=== PATIENT | female | born 1935 | race Caucasian/White ===

== ENCOUNTER 2024-01-16 14:52 | Observation (INO) | payer OTHER, SELFPAY ==
[2024-01-16] VITALS (10 sets, daily range): BP systolic 133–197; BP diastolic 44–117; BMI 23.8
--- NOTE | 2024-01-16 10:27 | ED.GENMED ---
History of Present Illness
General
Chief Complaint: Abdominal Symptoms
Source: patient and ambulance crew
Exam Limitations: none
Time Seen by Provider: 01/16/24 10:26
Nursing documentation reviewed up to this point in time: agreed with
History of Present Illness
History of Present Illness:
88-year-old female with history of HTN, non-Hodgkin's lymphoma, anxiety, colon resection 06/2022 presents from home where she lives alone. She lost her 1 month ago. She states she has been feeling lousy all week with dizziness, nausea,
diarrhea past 2 days, and started with shortness of breath this morning. She denies chest pain or abdominal pain. She denies fever or chills. No recent antibiotic use.
Tearful, admits to feeling panicky and anxious 'I've been this way for 6 years (states her was in a penitentiary a very ill for the past 6 years).' 'My doctor has me on too many medications' She has not taken her anxiety/depression meds past
few days due to 'I don't like the way they make me feel.'
Past History
Past History
ED Past Medical History: CAD, CHF, HTN, Hypothyroidism, Psychiatric (Anxiety ) and Other (Previous non-Hodgkin's lymphoma, Chronic Bronchitis, Anemia, )
ED Past Surgical History: Bowel resection (Colon resection) and Other (Left thumb amputation. )
Social History
Tobacco: Non-smoker
Alcohol: Occasional
Drug: None
Personal:
Living: with family
Employment: Other
Family History
Family History: Negative Diabetes
Review of Systems
Review of Systems
Allergies reviewed?: Yes
All Other Systems: ROS reviewed and negative except as documented in HPI and ROS
Constitutional: Denies fever
Respiratory: Denies cough or trouble breathing
Cardiac: Denies chest pain, diaphoresis, palpitations or syncope
ABD/GI: Reports nausea, diarrhea and anorexia; Denies abdominal pain, vomiting, bloody stools or black stools
: Denies dysuria, frequency, difficulty voiding or urgency
Phy Exam
Physical Exam
Physical Exam:
GENERAL: No acute distress. A&Ox3.
CONSTITUTIONAL: Afebrile.
EYES: PERRL, conjunctivae normal
Neck: Supple
ENMT: moist mucus membranes, Pharynx nl
RESPIRATORY: Regular respirations, nonlabored, lungs clear.
CARDIOVASCULAR: Regular rate and rhythm, no murmurs, no rubs.
GI: Soft, nontender, normal BS
MUSCULOSKELETAL: Moves with ease. Well perfused.
SKIN: Warm, dry, pink
PSYCH: Extremely anxious, tearful, tremulous. Well kept, interactive
NEUROLOGIC: Awake, alert and oriented. No focal neurological deficits
Course
Orders/Labs/Results
Orders:
Orders
01/16/24 Lunch
Cholesterol Lowering
At Your Request: Limited Participation
Cholesterol Lowering: Sodium, 2 Gram
01/16/24 10:27
Electrocardiogram (*1) Stat
Reason for Study: Other
Other Reason for Exam: chest pain
EKG- Treatment ONCE
CR Chest - 2 Views Urgent
Comment:
Reason For Exam: SOB
01/16/24 10:46
Alcohol Urgent
Complete Blood Count/With Diff Urgent
Comprehensive Metabolic Panel Urgent
NT-proBNP Urgent
Troponin I Urgent
01/16/24 10:49
Lorazepam [Ativan] 0.5 mg IV NOW STA
Ondansetron Injectable [Zofran] 4 mg IV NOW STA
01/16/24 11:56
Add On- LAB Urgent
Tests Added?: Alcohol level
01/16/24 11:58
Electrocardiogram (*1) Urgent
Reason for Study: Other
Other Reason for Exam: Too much artifact on initial one. Weak, dizzy
EKG- Treatment ONCE
01/16/24 12:11
Troponin I Urgent
01/16/24 12:15
Furosemide [Lasix] 40 mg IV NOW STA
01/16/24 14:26
Admit/Transfer Patient As Directed
Co-Sign Provider:
Level of Care: Observation services
Assign to:: Telemetry
Physician / Group: matilde/hospitalist
Diagnosis: AECHF, aortic stenosis
Reason for Telemetry: Acute Heart Failure
Date to Stop Telemetry: 01/19/24
Time to Stop Telemetry: 11:00
Reason for Hospitalization: AEHFpEF, aortic stenosis
01/16/24 14:30
Code Status As Directed
Resuscitation Status: Full Code
01/16/24 16:10
Acetaminophen [Tylenol] 650 mg PO Q4HPRN PRN
Furosemide [Lasix] 20 mg IV BID AT 0800,1600
Lorazepam [Ativan] 0.5 mg PO [id number] PRN
Trazodone [Desyrel] 25 mg PO HSPRN PRN
01/16/24 16:10
CARDIOLOGY CONSULT Routine
Consulting Provider: Shira Ramos
Was physician already notified: Yes
Reason for consult: AEHFpEF
HF DIETARY CONSULT Routine
HF EDUCATOR CONSULT Routine
Comment:
Activity As Directed
Activity Level: As Tolerated
Intake/ Output As Directed
Frequency: Per unit guidelines
Patient Education As Directed
Type: CHF folder
Comment: give on admission. Document in Interdisciplinary Education record
Sleep Apnea Assessment by RN As Directed
Comment:
Physician Instructions:
Vital Signs As Directed
Frequency: Other
Additional Instructions:: Q12 or per unit guidelines if more frequent.
Weight As Directed
Frequency: Daily
Type of Scale: Standing Scale
Comment: Daily morning weight. If unable to stand, use balanced bed scale.
Weight As Directed
Frequency: Once
Type of Scale: Standing Scale
Comment: Upon Admission. If unable to stand, use balanced bed scale.
Pulse Ox/cont/shift [RESP] Routine
Quantity: 1
Special Instructions: Daily pulse oximetry at rest. If greater than 92% at rest also obtain pulse oximetry
while ambulating as tolerated.
DX Deep Vein Thrombosis Video Routine
01/16/24 17:27
Basic Metabolic Panel Routine
Troponin I Q6H
Comment: at admission & every 6 hours x 2 (3 total), ECG to be done with each level
01/16/24 18:00
Atorvastatin [Lipitor] 10 mg PO QPM
Enoxaparin Sodium [Lovenox] 40 mg SC QPM
Metoprolol Xl [Toprol Xl] 50 mg PO QPM
01/16/24 22:00
Gabapentin [Neurontin] 300 mg PO HS
01/16/24 23:26
Troponin I Q6H
Comment: at admission & every 6 hours x 2 (3 total), ECG to be done with each level
01/17/24 05:39
Cardiovascular Evaluation IN AM
Complete Blood Count/No Diff IN AM
Magnesium IN AM
TSH Reflex To Free T4 IN AM
01/17/24 06:00
Levothyroxine [Synthroid] 50 mcg PO DAILY@0600
01/17/24 08:00
Cholecalciferol (Vitamin D3) [VITAMIN D3 (cholecalciferol)] 25 mcg PO DAILY
Sertraline HCl [Zoloft] 50 mg PO DAILY
Tolterodine Extended Release [Detrol LA] 4 mg PO DAILY
01/19/24 11:00
DC Protocol for Telemetry ONCE
Abnormal Lab Results
01/16/24
10:46
MCH 32.6 H pg
(27.0-31.0)
Calcium 10.5 H mg/dl
(8.4-10.2)
01/16/24 10:46
01/16/24 10:46
Vital Signs
Initial and Last Documented VS:
Initial Vital Signs
Temp Pulse Resp BP Pulse Ox
98.1 F 54 16 189/94 99
01/16/24 10:26 01/16/24 10:26 01/16/24 10:26 01/16/24 10:26 01/16/24 10:26
Last Documented Vital Signs
Temp Pulse Resp BP Pulse Ox
97.6 F 54 18 147/88 95
01/17/24 19:28 01/17/24 19:28 01/17/24 19:28 01/17/24 19:28 01/17/24 19:28
MDM/Problems Addressed
MDM/Problems Addressed:
88-year-old female with history of HTN, non-Hodgkin's lymphoma, anxiety, colon resection 06/2022 presents from home where she lives alone. She lost her 1 month ago. She states she has been feeling lousy all week with dizziness, nausea,
diarrhea past 2 days, and started with shortness of breath this morning. She denies chest pain or abdominal pain. She denies fever or chills. No recent antibiotic use.
Tearful, admits to feeling panicky and anxious 'I've been this way for 6 years (states her was in a penitentiary a very ill for the past 6 years).' 'My doctor has me on too many medications' She has not taken her anxiety/depression meds past
few days due to 'I don't like the way they make me feel.'
Received a call from a nurse practitioner who is familiar with the patient who states patient has a history of abusing alcohol and we should be on the alert for alcohol withdrawal
Unable to question pt about alcohol intake as a friend is in room with her.
12:00 PM:
EKG: NSR
CBC normal
CMP normal
Troponin within [place] [address]
Chest x-ray: No acute cardiopulmonary process.
Alcohol level:
Case discussed with Dr. Pizano.
Plan: Admit: CHF
elevated BNP, although radiology read NAD on chest x-ray, concern for CHF
Hospitalist notified of admission.
*Critical Care Note
Total Time (30-74mins, 75-104mins- exclusive of procedures): Not Applicable
ED Attending Note
-
Portions of this chart may have been created with voice recognition software.� Occasional wrong word or��sound alike� substitutions may have occurred due to the inherent limitations of voice recognition software.
Discharge Plan
Departure
Patient Disposition: Admit
Date of Disposition: 01/16/24
Time of Disposition: 12:15
Admit to: Telemetry
Presentation/result/management discussed w/ accepting MD/DO: Hospitalist
Condition: Fair
Discharge Problem:
CHF (congestive heart failure), Anxiety
Interventions
Interventions:
*Risk Screen - Suicide Last Done: 01/16/24 16:04
*General Assessment Last Done: 01/16/24 10:41
*Neglect/Abuse Screening Last Done: 01/16/24 10:41
ED- Fall Risk Assessment Last Done: 01/16/24 13:47
*ED COVID-19 Vaccine History Last Done: 01/16/24 10:41
*Nursing Disposition Last Done: 01/16/24 16:04
ED- Neurological Assessment Last Done: 01/16/24 10:35
ED- Cardiac Assessment Last Done: 01/16/24 10:35
EM-Dargfx-Ffhoeoorow Assessment Last Done: 01/16/24 10:35
ED Swallowing Screen Last Done: 01/16/24 10:50
Discharge Date and Time
Discharge Date/Time: 01/16/24 16:05
[2024-01-16] MEDS: ZOFRAN 4 MG IV (10:55)
[2024-01-16] MEDS: ATIVAN 0.5 MG IV (10:55)
[2024-01-16 10:57] LABS: % Basophils 0.5 % (0-2); % Eosinophils 0.4 % (0-6); % Immature Granulocytes 0.3 % (0-0.5); % Lymphocytes 22.7 % (20.5-51.1); % Monocytes 5.8 % (1.7-9.3); % Neutrophils 70.3 % (42.2-75.2); Absolute Lymphocytes 1.7 10^3/uL (1.2-3.4); Absolute Monocytes 0.4 10^3/uL (0.1-0.6); Absolute Neutrophils 5.4 10^3/uL (1.4-6.5); Hematocrit 38.7 % (37.0-47.0); Mean Corp Hgb Conc. 36.2 g/dL (33.0-37.0); Mean Corpuscular Hgb 32.6 pg (27.0-31.0); Mean Platelet Volume 10.3 fL (7.4-10.4); Nucleated Red Blood Cells % 0 %; Platelet Count 316 10^3/uL (130-400); Red Cell Dist. Width 13.9 % (11.5-14.5); White Blood Cell Count 7.7 10^3/uL (4.8-10.8)
[2024-01-16 11:07] LABS: ALT (SGPT) 18 U/L (0-35); AST (SGOT) 29 U/L (14-36); Albumin 4.9 g/dl (3.5-5.0); Alkaline Phosphatase 87 U/L (38-126); Blood Urea Nitrogen 11 mg/dl (7-17); Calcium 10.5 mg/dl (8.4-10.2); Carbon Dioxide 25 mmol/L (22-30); Chloride 103 mmol/L (98-107); Glucose 94 mg/dl (70-99); Potassium 4.4 mmol/L (3.5-5.1); Sodium 139 mmol/L (135-145); Total Bilirubin 1.2 mg/dl (0.2-1.3); Total Protein 7.5 g/dl (6.3-8.2); eGFR > 60.00
[2024-01-16 11:19] LABS: NT-proBNP 10300 pg/ml; Troponin I 0.017 ng/ml
[2024-01-16 12:15] LABS: Alcohol None Detected
[2024-01-16] MEDS: LASIX 40 MG IV (12:19)
[2024-01-16 12:48] LABS: Troponin I 0.014 ng/ml
--- NOTE | 2024-01-16 13:53 | HPS.HSE ---
Family Physician
-
Family Physician: Khoa Rajan
Chief Complaint
-
SOB
History of Present Illness
The patient is an 88-year-old female with PMH significant for HTN, non-Hodgkin's lymphoma, anxiety, colon resection 06/2022 for colon mass, presents from home (lives alone-recently lost her 1 mo ago and prior to that he was ill for 6 years),
and has been having symptoms of dizziness, nausea, diarrhea for 2 days, after eating at [employer] and having 2 gin and tonics, however started to have SOB this morning. She typically does not drink alcohol frequently per her report. She had 2 loose
BM yesterday, none today. No fevers, no chills, no CP, no SOB, no palpitations, no n/v/d today, no dysuria nor urinary symptoms. She is diuresing well in ED after Lasix IV given. She knows about moderate , and says she would not want surgery if it
came to that.
[place] [address], Trop 0.014, Calcium 10.5
ED txt: Ativan 0.5 mg IV once, Zofran 4 mg IV, Lasix 40 mg IV once
Medical History
Past Medical History
Past Medical History: Reports Other
Additional Past Medical History:
Colon Mass / Cancer
Hypertension
Hypothyroidism
Non-Hodgkin's Lymphoma (25 years ago)
Aortic Stenosis
Iron deficiency anemia
Hemorrhoids / Chronic Constipation
Anxiety / Depression
Hyperlipidemia
Past Surgical History: Reports Other
Additional Past Surgical History:
Right Hemicolectomy (06/2022)
Patient denies any prior surgeries.
Social History
Tobacco: Former Smoker (Quit 50 years ago.)
Alcohol: Occasional
Drug: None
Living: Alone
Family History
Family History: Not pertinent
Allergies / Home Medications
Allergies reflects when Allergies were last updated in [employer].
Home Medications with original date entered in [employer]
Allergy/Medication List:
Allergies
Allergy/AdvReac Type Severity Reaction Status Date / Time
No Known Allergies Allergy Verified 01/16/24 10:31
Home Medications
levothyroxine 50 mcg tablet 50 mcg PO DAILY Thyroid 10/25/17
atorvastatin 10 mg tablet 10 mg PO QPM High cholesterol 04/07/22
cholecalciferol (vitamin D3) 25 mcg (1,000 unit) tablet 25 mcg PO DAILY Supplement 04/07/22
metoprolol succinate 50 mg tablet,extended release 24 hr 50 mg PO QPM Blood pressure 04/07/22
acetaminophen 325 mg tablet (Tylenol) 650 mg PO Q4HPRN PRN mild pain 01/16/24
docusate sodium 100 mg capsule (Colace) 100 mg PO DAILY 01/16/24
gabapentin 300 mg capsule 300 mg PO HS 01/16/24
sertraline 50 mg tablet 50 mg PO DAILY 01/16/24
solifenacin 10 mg tablet (Vesicare) 10 mg PO DAILY 01/16/24
trazodone 50 mg tablet 25 mg PO HSPRN PRN sleep 01/16/24
vitamin E 268 mg (400 unit) capsule 268 mg PO DAILY 01/16/24
Review of Systems
-
A 12 point ROS was completed and negative except as noted: Yes
Physical Exam
Vital Signs
Vital Signs
Temp Pulse Resp BP Pulse Ox
98.1 F 66 27 170/117 91
01/16/24 10:26 01/16/24 13:45 01/16/24 13:45 01/16/24 13:30 01/16/24 13:45
Physical Exam
General: Well Developed, Well Nourished and No Apparent Distress
HEENT: NormoCephalic, Anicteric and Moist mucous membranes
Respiratory: Clear
Cardiac: S1/S2 and Murmur (3+ HOLLY)
GI: Soft, Non Tender and Non Distended
Musculoskeletal: No Clubbing, No Cyanosis and No Edema
Skin: Warm and Dry
Neuro: AO x 3, No Motor Deficits and Nonfocal/grossly intact
Psych: Calm
Laboratory Results
-
01/16/24 10:46
01/16/24 10:46
Laboratory Results
Total Bilirubin 1.2 mg/dl (0.2-1.3) 01/16/24 10:46
AST 29 U/L (14-36) 01/16/24 10:46
ALT 18 U/L (0-35) 01/16/24 10:46
Alkaline Phosphatase 87 U/L (38-126) 01/16/24 10:46
Troponin I 0.014 ng/ml 01/16/24 12:11
Data Reviewed
-
Diagnostic Radiology: Image Personally Visualized and interpreted and Report Reviewed by me (CXR NAD)
Medical Tests (Nuc Med, Echo, EKG etc): Image Personally Visualized and interpreted and Report Reviewed by me (EKG unchanged from prior - NSR, iRBBB, ST-T wave abnormalities)
Impression/Plan
-
IMPRESSION:The patient is an 88-year-old female with PMH significant for HTN, non-Hodgkin's lymphoma, anxiety, colon resection 06/2022 for colon mass, presents from home (lives alone-recently lost her 1 mo ago and prior to that he was ill
for 6 years), and has been having symptoms of dizziness, nausea, diarrhea for 2 days, after eating at [employer] and having 2 gin and tonics, however started to have SOB this morning. She typically does not drink alcohol frequently per her report.
She had 2 loose BM yesterday, none today. No fevers, no chills, no CP, no SOB, no palpitations, no n/v/d today, no dysuria nor urinary symptoms. She is diuresing well in ED after Lasix IV given. She knows about moderate , and says she would not
want surgery if it came to that.
[place] [address], Trop 0.014, Calcium 10.5
ED txt: Ativan 0.5 mg IV once, Zofran 4 mg IV, Lasix 40 mg IV once
# Concern for acute exacerbation HFpEF in the setting of valvular heart disease with moderate aortic stenosis, possibly progression of
-admit OBS for now, telemetry monitoring, she has stable respiratory status at this time, stable hemodynamics, breathing 95% RA
-Cont Lasix 20 mg IV BID for now, monitor I/O, daily weights
-Cards Cx
-echocardiogram to assess valves
-repeat labs, TSH, Mg in am
#Echo-04/08/22- normal LV size/fxn, EF 66%, Moderate , pulmonary artery pressure 38 mmHg
#Anxiety/insomnia
-prn ativan (she takes 1 tablet daily currently)
-nightly trazodone for sleep
#History of Colon Mass / Cancer
-stable, monitor
#Essential Hypertension
-BB w hold parameters
#Hypothyroidism
-synthroid, check TSH
#Non-Hodgkin's Lymphoma (25 years ago)
#Iron deficiency anemia, stable
#Hemorrhoids / Chronic Constipation
-recent diarrhea yesterday, monitor and if persists, check stool studies/C.Diff
#Hyperlipidemia
-cont statin
DVT proph-Lovenox
Full Code confirmed
[2024-01-16] MEDS: LASIX 20 MG IV (16:34)
--- NOTE | 2024-01-16 16:38 | PTCARENOTE ---
Patient received from ER in stretcher, ambulated to bed with single point cane; Patient denies N/V/D at this time; Patient denies pain; Patient oriented to room and unit; Call flores within reach; Bed in lowest position, wheels locked; Assessment
ongoing
[2024-01-16 17:52] LABS: Blood Urea Nitrogen 12 mg/dl (7-17); Calcium 10.5 mg/dl (8.4-10.2); Carbon Dioxide 28 mmol/L (22-30); Chloride 99 mmol/L (98-107); Estimated Creatinine Clearance 44 ml/min; Glucose 96 mg/dl (70-99); Sodium 138 mmol/L (135-145); eGFR > 60.00
[2024-01-16] MEDS: LIPITOR 10 MG PO (17:53)
[2024-01-16] MEDS: TYLENOL 650 MG PO (17:53)
[2024-01-16] MEDS: TOPROL XL 50 MG PO (17:53)
[2024-01-16] MEDS: LOVENOX 40 MG SC (17:54)
--- NOTE | 2024-01-16 18:02 | PTCARENOTE ---
Patient noted to be getting up without assistance multiple times, patient with urinary frequency and concerned about getting to the bathroom in time; Bed alarm placed; Patient reoriented to call flores use and to call staff for assistance when getting
OOB; Patient back in bed with call flores within reach
[2024-01-16 18:04] LABS: Troponin I 0.021 ng/ml
[2024-01-16] MEDS: NEURONTIN 300 MG PO (20:47)
[2024-01-16] MEDS: DESYREL 25 MG PO (20:48)
[2024-01-17 00:16] LABS: Troponin I 0.031 ng/ml
[2024-01-17 03:07] VITALS: BP 121/45
[2024-01-17] MEDS: SYNTHROID 50 MCG PO (05:58)
[2024-01-17 06:00] VITALS: BMI 23.7
[2024-01-17 06:04] LABS: Hematocrit 38.9 % (37.0-47.0); Hemoglobin 13.9 g/dL (12.0-16.0); Mean Corp Hgb Conc. 35.7 g/dL (33.0-37.0); Mean Corpuscular Hgb 32.7 pg (27.0-31.0); Mean Corpuscular Volume 91.5 fL (81.0-99.0); Mean Platelet Volume 10.5 fL (7.4-10.4); Platelet Count 281 10^3/uL (130-400); Red Blood Cell Count 4.25 10^6/uL (4.20-5.40); Red Cell Dist. Width 13.9 % (11.5-14.5); White Blood Cell Count 6.3 10^3/uL (4.8-10.8)
[2024-01-17 06:24] LABS: Calcium 10.2 mg/dl (8.4-10.2); HDL Cholesterol 107 mg/dl; LDL Cholesterol, Calculated 121 mg/dl; Magnesium 1.8 mg/dl (1.6-2.3); Total Cholesterol 257 mg/dl (50-199); Triglyceride 146 mg/dl (10-149); Very Low Density Lipoprotein 29 mg/dl (0-30)
[2024-01-17 06:51] LABS: TSH Reflex To Free T4 1.95 uIU/ml (0.47-4.68)
[2024-01-17 07:00] VITALS: BP 150/46
--- NOTE | 2024-01-17 07:43 | CON.CAR ---
Addendum entered and electronically signed by Phani Jon DO 01/17/24 14:21:
I saw and examined the patient.
The [employer]'s note was reviewed and I agree with the note.
Comment:
Plan:
-Presented 01/16/2024 with dizziness, nausea, diarrhea for 2 days and SOB
Cont IV lasix diuresis 20 mg BID another 24 hrs and transition to low dose oral lasix given . She was taking prn prior to admit.
Follow BMP, trend weights
Echo with known moderate aortic stenosis with last echo in March 2022. Repeat echo to better eval . In past patient was reluctant to undergo valve surgery. If worsened, may be able to consider TAVR.
Hypertension, continue Toprol
Continue atorvastatin
Original Note:
Consultation
Consultation Request
Date/Time Consultation Requested: 01/16/2024
Date/Time Consultation Performed: 01/17/2024
Requesting Provider: Dr. Curtis
Performing Provider: Evy Holland PA-C for Dr. Phani Jon
Reason for Consultation: SOB
Medical History
-
History of Present Illness:
She has past medical history of aortic stenosis, hypertension, hypothyroidism, heart failure with preserved ejection fraction, non-Hodgkin's lymphoma treated with chemotherapy, anemia of chronic disease and colon mass s/p right colectomy who
presented to emergency department 01/16/2024 with complaints of dizziness, nausea, diarrhea x 2 days. She also notes worsening dyspnea on exertion and some shortness of breath. Patient also admits to ongoing anxiety and depression as she lost her
in approximately 1 month ago. She was noted to have elevated proBNP of 10,300. Chest x-ray no acute cardiopulmonary process. Troponin 0.014. EKG showed sinus rhythm with right bundle branch block and nonspecific ST-T wave abnormality.
She was provided 40 mg IV Lasix in emergency department.
PMH:
Aortic stenosis
h/o Non-Hodgkin lymphoma treated with chemotherapy
Colon Mass / Cancer s/p right colectomy 06/2022
Hypertension
Hypothyroidism
Iron deficiency anemia
Hemorrhoids / Chronic Constipation
Anxiety / Depression
Hyperlipidemia
Past Medical History
Past Medical History: Other (in HPI)
Past Surgical History: Bowel Resection (right colectomy 06/2022)
Social History
Tobacco: Former Smoker
Alcohol: Occasional
Drug: None
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
Living: Alone
Family History
Family History: Cancer
Allergies / Home Medications
Allergy/AdvReac Type Severity Reaction Status Date / Time
No Known Allergies Allergy Verified 01/16/24 10:31
�Medication �Instructions �Recorded �Confirmed �Type
levothyroxine 50 mcg tablet 50 mcg PO DAILY Thyroid 10/25/17 01/16/24 History
atorvastatin 10 mg tablet 10 mg PO QPM High cholesterol 04/07/22 01/16/24 History
cholecalciferol (vitamin D3) 25 25 mcg PO DAILY Supplement 04/07/22 01/16/24 History
mcg (1,000 unit) tablet
metoprolol succinate 50 mg 50 mg PO QPM Blood pressure 04/07/22 01/16/24 History
tablet,extended release 24 hr
acetaminophen 325 mg tablet 650 mg PO Q4HPRN PRN mild pain 01/16/24 01/16/24 History
(Tylenol)
docusate sodium 100 mg capsule 100 mg PO DAILY 01/16/24 01/16/24 History
(Colace)
gabapentin 300 mg capsule 300 mg PO HS 01/16/24 01/16/24 History
sertraline 50 mg tablet 50 mg PO DAILY 01/16/24 01/16/24 History
solifenacin 10 mg tablet (Vesicare) 10 mg PO DAILY 01/16/24 01/16/24 History
trazodone 50 mg tablet 25 mg PO HSPRN PRN sleep 01/16/24 01/16/24 History
vitamin E 268 mg (400 unit) capsule 268 mg PO DAILY 01/16/24 01/16/24 History
Review of Systems
-
History Source: Patient
All other systems: Negative unless noted
Physical Exam
Vital Signs
Temp Pulse Resp BP Pulse Ox
98.4 F 57 16 121/45 93
01/17/24 03:07 01/17/24 03:07 01/17/24 03:07 01/17/24 03:07 01/17/24 03:07
GEN: No distress, awake, Ox3, lying in bed
HEENT: supple, anicteric, mmm
LUNGS:Mildly diminished BS bilaterally, no wheezes/rales
CV: Reg, S1/S2, 2/6 harsh syst murmur
ABD: soft, BS+, NT/ND
EXT: No edema, clubbing or cyanosis
NEURO: Gross non-focal
SKIN: No rash, warm, dry
Lab Results
01/17/24 05:39
01/16/24 17:27
Troponin I 0.031 ng/ml D 01/16/24 23:26
Snx-I-Gsozltsvfig Pept 79425 pg/ml 01/16/24 10:46
Impression / Plan
-
PCP: Dr. Khoa Rajan
Cardiology: Requesting Dr. Yolanda Espinosa
Impression:
Presented 01/16/2024 with dizziness, nausea, diarrhea for 2 days
Shortness of breath
Acute HF preserved ejection fraction, proBNP 10,300
Aortic stenosis, moderate
h/o Non-Hodgkin lymphoma treated with chemotherapy
Colon Mass/Cancer s/p right colectomy 06/2022
Hypertension
Hypothyroidism
Iron deficiency anemia
Hemorrhoids / Chronic Constipation
Anxiety / Depression
Hyperlipidemia
Echo 04/08/2022: EF 66%, mild MR/TR, mod peak/mean 49/29,
Echo 10/25/17: EF 65-70%, no regional WMA, mild abnormal relaxation, mild with peak/mean 39/21 mmHg and CARMEN 1.6 cm sq, mild aortic regurgitation
Plan:
-Presented 01/16/2024 with dizziness, nausea, diarrhea for 2 days and SOB
-Acute HF preserved ejection fraction, proBNP 10,300
-Continue IV diuresis with Lasix 20 mg BID for another 24 hours then would transition to oral Lasix at low dose given her aortic stenosis. Patient reports that she was taking Lasix prn (usually 1-3 times a week) prior to admission
-Follow BMP, trend weights
-EKG sinus rhythm with incomplete right bundle branch block with nonspecific ST-T wave abnormalities which have been present on prior EKGs. Troponin peaked at 0.031, unremarkable.
-Known moderate aortic stenosis with last echo in March 2022. Would repeat echo. In past patient was reluctant to undergo valve surgery but upon discussing that TAVR may be an option she is now reconsidering.
-Hypertension, continue Toprol
-Hyperlipidemia, TC 257, HDL 107, LDL 121, triglycerides 146. Continue atorvastatin
-Hypothyroidism, TSH 1.95. Continue Synthroid
-Chronic anemia with stable hemoglobin at 13.9
HPI 01/17/2024:
She has past medical history of aortic stenosis, hypertension, hypothyroidism, heart failure with preserved ejection fraction, non-Hodgkin's lymphoma treated with chemotherapy, anemia of chronic disease and colon mass s/p right colectomy who
presented to emergency department 01/16/2024 with complaints of dizziness, nausea, diarrhea x 2 days. She also notes worsening dyspnea on exertion and some shortness of breath. Patient also admits to ongoing anxiety and depression as she lost her
in approximately 1 month ago. She was noted to have elevated proBNP of 10,300. Chest x-ray no acute cardiopulmonary process. Troponin 0.014. EKG showed sinus rhythm with right bundle branch block and nonspecific ST-T wave abnormality.
She was provided 40 mg IV Lasix in emergency department.
Data Reviewed
-
EKG: Report Reviewed by me, Discussed with Physician and Discussed with Patient
Radiology: Report Reviewed by me, Discussed with Physician and Discussed with Patient
Labs: Labs Reviewed by me, Discussed with Physician and Discussed with Patient
Old Records: Reviewed
[2024-01-17] MEDS: ZOLOFT 50 MG PO (08:02)
[2024-01-17] MEDS: DETROL LA 4 MG PO (08:02)
[2024-01-17] MEDS: LASIX 20 MG IV ×2 (08:02→15:36)
[2024-01-17] MEDS: VITAMIN D3 (cholecalciferol) 25 MCG PO (08:02)
[2024-01-17 09:58] LABS: Blood Urea Nitrogen 19 mg/dl (7-17); Carbon Dioxide 25 mmol/L (22-30); Chloride 100 mmol/L (98-107); Estimated Creatinine Clearance 31 ml/min; Glucose 84 mg/dl (70-99); Potassium 3.7 mmol/L (3.5-5.1); Sodium 138 mmol/L (135-145); eGFR 48.03
--- NOTE | 2024-01-17 10:35 | W.PN.HOSP.TC ---
Today's Communication/Plan
-
see A/P
Assessment / Plan
Assessment / Plan
HPI: 88-year-old female with PMH significant for HTN, non-Hodgkin's lymphoma, anxiety, colon resection 06/2022 for colon mass, presented from home (lives alone- recently lost her 1 mo ago and prior to that he was ill for 6 years) with
symptoms of dizziness, nausea, diarrhea for 2 days after eating at [employer] and having 2 gin and tonics, and SOB. She typically does not drink alcohol frequently per her report. She had 2 loose BM the day TRANSPLANTER ORCHID, none since.
She is diuresing well in ED after Lasix IV given. She knows about moderate , and says she would not want surgery if it came to that.
A/P:
# Concern for acute on chronic HFpEF in setting of valvular heart disease with moderate aortic stenosis and possibly progression of
Cont Lasix 20 mg IV BID, monitor I/O, daily weights
Check echo to assess valves
Echo from 04/08/22- normal LV size/fxn, EF 66%, Moderate , pulmonary artery pressure 38 mmHg
TSH 1.95
Card CS
# HASEEB likely cardiorenal syndrome
SCr 1.1 from baseline 0.8
Monitor SCr on IV Lasix
# Anxiety/insomnia
# Likely adjustment disorder
prn Ativan (she takes 1 tablet daily currently), informed about judicious use of Ativan given S/E profile
Cont TRANSPLANTER ORCHID Zoloft
Cont TRANSPLANTER ORCHID trazodone for sleep
# History of colon mass / cancer, stable
# Essential Hypertension
Cont TRANSPLANTER ORCHID Lopressor with hold parameters
# Hypothyroidism
TSH 1.95
Cont synthroid
# Non-Hodgkin's Lymphoma (25 years ago)
# Iron deficiency anemia, stable
# Hemorrhoids / Chronic Constipation
recent diarrhea which appear to have resolved, monitor
Consider stool studies/C.Diff if recurs
# Hyperlipidemia
cont statin
DVT proph-Lovenox
Full Code confirmed
Anticipated Discharge: 24 - 48 hours
Subjective/Interval History
-
Date of Service: January 17, 2024
Objective Data
-
Labs:
Laboratory Results
01/17/24
05:39
WBC 6.3
Hgb 13.9
Hct 38.9
Plt Count 281
Sodium 138
Potassium 3.7
Chloride 100
Carbon Dioxide 25
BUN 19 H
Creatinine 1.1 H
Glucose 84
Calcium 10.2
Vital Signs:
Vital Signs
Temp Pulse Resp BP Pulse Ox
36.6 C 55 16 150/46 94
01/17/24 07:00 01/17/24 07:00 01/17/24 07:00 01/17/24 07:00 01/17/24 07:00
I&O
01/16/24 01/17/24 01/18/24
06:59 06:59 06:59
Intake Total 420 / 420
Balance 420 / 420
Review of Systems
-
Abdomen/GI: Denies Diarrhea (resolved )
Physical Exam
-
General: Well Developed, Well Nourished, No Apparent Distress and Comfortable
Respiratory: Clear to Auscultation and Non Labored Respirations; Negative Accessory Resp Muscle Use
Cardiac: Regular Rhythm and S1/S2; Negative Murmur, Rub or Gallop
GI: Soft, Nondistended and Normal Bowel Sounds; Negative Organomegaly
Musculoskeletal: No Clubbing, No Cyanosis and No Edema
Neuro: Awake and Alert
Psych: Calm and Intact Judgement/Insight
Data Reviewed
-
Labs: Labs Reviewed by me
[2024-01-17 11:00] VITALS: BP 145/56
[2024-01-17] MEDS: TYLENOL 650 MG PO ×2 (11:08→21:18)
[2024-01-17 15:00] VITALS: BP 103/61
--- NOTE | 2024-01-17 15:27 | CM ---
Addendum entered by Wendy Tijerina 01/17/24 15:55:
JOSE - saw lopez
Original Note:
Met with pt at bedside
Pt reports she lives alone in an apartment with FF set-up
Independent, does own cooking, cleaning, shopping, drives
Has ride at d/c
PCP - Dr Rosa Rajan
Pharm - [facility]
CM will follow for d/c needs
Plan - anticipate home no needs
[2024-01-17] MEDS: TOPROL XL 50 MG PO (17:00)
[2024-01-17] MEDS: LIPITOR 10 MG PO (17:00)
[2024-01-17] MEDS: LOVENOX 40 MG SC (17:00)
[2024-01-17 19:28] VITALS: BP 147/88
[2024-01-17] MEDS: COLACE 100 MG PO (21:18)
[2024-01-17] MEDS: DESYREL 25 MG PO (21:19)
[2024-01-17] MEDS: NEURONTIN 300 MG PO (21:19)
[2024-01-17 23:01] VITALS: BP 123/60
[2024-01-18] VITALS (7 sets, daily range): BP systolic 124–167; BP diastolic 52–79; BMI 23.8
[2024-01-18] MEDS: SYNTHROID 50 MCG PO (05:47)
[2024-01-18 06:07] LABS: Blood Urea Nitrogen 31 mg/dl (7-17); Calcium 9.8 mg/dl (8.4-10.2); Carbon Dioxide 27 mmol/L (22-30); Chloride 98 mmol/L (98-107); Estimated Creatinine Clearance 29 ml/min; Glucose 92 mg/dl (70-99); Magnesium 1.8 mg/dl (1.6-2.3); Potassium 3.7 mmol/L (3.5-5.1); Sodium 138 mmol/L (135-145); eGFR 43.27
[2024-01-18] MEDS: COLACE 100 MG PO ×2 (08:32→15:50)
[2024-01-18] MEDS: DETROL LA 4 MG PO (08:32)
[2024-01-18] MEDS: LASIX 20 MG IV (08:32)
--- NOTE | 2024-01-18 08:40 | W.PN.CARDCBS ---
Today's Communication / Plan
-
Transition to oral lasix 20 mg daily.
Cr rising. Check BMP one week.
Reviewed her echo with her and discussed her progressive and options including consideration as outpt for TAVR. She is considering TAVR. She was asked to bring a family member with her to her appt.
She had requested previously to see Dr Guerrero.
Cont Toprol for HTN
Cont Lipitor for hyperlipidemia.
She recently lost her she states and she was give emotional support.
Will arrange outpt cardiac follow up.
Please recall if needed.
Impression / Plan
-
PCP: Dr. Khoa Rajan
Cardiology: Requesting Dr. Yolanda Espinosa
Impression:
Presented 01/16/2024 with dizziness, nausea, diarrhea for 2 days Shortness of breath
Acute HF preserved ejection fraction, proBNP 10,300, improved
Aortic stenosis, now severee
h/o Non-Hodgkin lymphoma treated with chemotherapy
Colon Mass/Cancer s/p right colectomy 06/2022
Hypertension
Hypothyroidism
Iron deficiency anemia
Hemorrhoids / Chronic Constipation
Anxiety / Depression
Hyperlipidemia
Echo 04/08/2022: EF 66%, mild MR/TR, mod peak/mean 49/29,
Echo 10/25/17: EF 65-70%, no regional WMA, mild abnormal relaxation, mild with peak/mean 39/21 mmHg and CARMEN 1.6 cm sq, mild aortic regurgitation
Echo January 17 2024: Left ventricle is small in size. Mild concentric left ventricular hypertrophy. Normal left ventricular systolic function. Normal regional wall motion. LV ejection fraction is 57%.
Severe aortic stenosis. Peak/mean gradients across the aortic valve are 89/44 mmHg, the aortic valve area is 0.8 cm2. Mild to moderate aortic regurgitation.
Mild tricuspid regurgitation. Estimated pulmonary artery pressure of 25-30 mmHg. Compared to the previous echo aortic stenosis has progressed from moderate to severe, no other significant change.
Plan:
-Presented 01/16/2024 with dizziness, nausea, diarrhea for 2 days and SOB. Acute HF preserved ejection fraction, proBNP 10,300
Transition to oral lasix 20 mg daily.
Cr rising. Check BMP one week.
Reviewed her echo with her and discussed her progressive and options including consideration as outpt for TAVR. She is considering TAVR. She was asked to bring a family member with her to her appt.
She had requested previously to see Dr Guerrero.
Cont Toprol for HTN
Cont Lipitor for hyperlipidemia.
She recently lost her she states and she was give emotional support.
Will arrange outpt cardiac follow up.
Please recall if needed.
HPI 01/17/2024:
She has past medical history of aortic stenosis, hypertension, hypothyroidism, heart failure with preserved ejection fraction, non-Hodgkin's lymphoma treated with chemotherapy, anemia of chronic disease and colon mass s/p right colectomy who
presented to emergency department 01/16/2024 with complaints of dizziness, nausea, diarrhea x 2 days. She also notes worsening dyspnea on exertion and some shortness of breath. Patient also admits to ongoing anxiety and depression as she lost her
in approximately 1 month ago. She was noted to have elevated proBNP of 10,300. Chest x-ray no acute cardiopulmonary process. Troponin 0.014. EKG showed sinus rhythm with right bundle branch block and nonspecific ST-T wave abnormality.
She was provided 40 mg IV Lasix in emergency department.
Progress Note - Armored Service Technician
Subjective
Date of Service: January 18, 2024
Pt seen and examined. She denies cp or dyspnea and would like to go home.
Objective
Labs:
01/17/24 05:39
01/18/24 05:20
Labs
Hgb 13.9 g/dL (12.0-16.0) 01/17/24 05:39
Hct 38.9 % (37.0-47.0) 01/17/24 05:39
Plt Count 281 10^3/uL (130-400) 01/17/24 05:39
Sodium 138 mmol/L (135-145) 01/18/24 05:20
Potassium 3.7 mmol/L (3.5-5.1) 01/18/24 05:20
BUN 31 mg/dl (7-17) H 01/18/24 05:20
Creatinine 1.2 mg/dL (0.6-1.0) H 01/18/24 05:20
Glucose 92 mg/dl (70-99) 01/18/24 05:20
Troponins
01/16/24 01/16/24 01/16/24
10:46 12:11 17:27
Troponin I 0.017 0.014 0.021 D
01/16/24
23:26
Troponin I 0.031 D
Vital Signs and I&O:
Vital Signs
Temp Pulse Resp BP Pulse Ox
97.4 F 75 16 140/71 96
01/18/24 07:22 01/18/24 07:22 01/18/24 07:22 01/18/24 07:22 01/18/24 07:22
Vital Signs
Temp Pulse Resp BP Pulse Ox
97.4 F 75 16 140/71 96
01/18/24 07:22 01/18/24 07:22 01/18/24 07:22 01/18/24 07:22 01/18/24 07:22
Intake & Output
01/16/24 01/17/24 01/18/24 01/19/24
06:59 06:59 06:59 06:59
Intake Total 420 / 420 2219 / 0
Balance 420 / 420 2219 / 2219
Physical Exam
Physical Exam
General: No acute distress, AAOX3
Neck: Negative JVD
Heart: Regular, Negative S3 positive S1/S2, Negative S4, HOLLY grade II/
Lungs: CTA b/l, negative wheezes/rales/rhonchi
Abd: Positive BS, NT/ND, neg rebound/rigidity/guarding
Ext: Negative cyanosis/clubbing/edema
Neuro: nonfocal
[2024-01-18] MEDS: VITAMIN D3 (cholecalciferol) 25 MCG PO (08:42)
[2024-01-18] MEDS: ZOLOFT PO (08:43)
--- NOTE | 2024-01-18 09:23 | W.HF.CON ---
Heart Failure
- LV Function
Left ventricular function study result: LV Ejection fraction >40%
Ejection Fraction Percentage: 57
- ARNI
Patient already on ARNI: No
Heart Failure ARNI Not Indicated: LV Ejection Fraction >/= 40%
- ACEI/ARB
Patient already on ACEI/ARB: No
Heart Failure ACEI/ARB Not Indicated: LV Ejection Fraction > 40%
- Beta Jack
Patient already on Evidence Based Beta Jack: Yes
- Mineralocorticord Receptor Antagonist
Patient already on MRA: No
Heart Failure MRA Not Indicated: LV Ejection Fraction > 40%
- SGLT-2 Inhibitor
Patient already on SGLT-2 Inhibitor: No
Heart Failure SGLT-2 Inhibitor Not Indicated: LV Ejection Fraction >40%
- NYHA CHF Classification
NYHA CHF Classification Level: Class III - Symptoms w/ min exertion, interferes w/ nml daily activity (severe )
- ACC/AHA Stage
ACC/AHA Stage: Stage C: Symptomatic Heart Failure
--- NOTE | 2024-01-18 11:23 | W.PN.HOSP.TC ---
Today's Communication/Plan
-
see A/P
Assessment / Plan
Assessment / Plan
HPI: 88-year-old female with PMH significant for HTN, non-Hodgkin's lymphoma, anxiety, colon resection 06/2022 for colon mass, presented from home (lives alone- recently lost her 1 mo ago and prior to that he was ill for 6 years) with
symptoms of dizziness, nausea, diarrhea for 2 days after eating at [employer] and having 2 gin and tonics, and SOB. She typically does not drink alcohol frequently per her report. 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
She is diuresing well in ED after Lasix IV given. She knows about moderate , and says she would not want surgery if it came to that.
A/P:
# Concern for acute on chronic HFpEF in setting of valvular heart disease with moderate aortic stenosis and possibly progression of
IV Lasix 20 mg BID changed to oral lasix 20 mg daily.
monitor I/O, daily weights
Echo noted: EF 57%. Severe aortic stenosis. Mild to moderate aortic regurgitation. Compared to the previous echo aortic stenosis has progressed from moderate to severe, no other significant change.
TSH 1.95
Card on board
# HASEEB likely cardiorenal syndrome
SCr 1.1 -> 1.2 from baseline 0.8
IV Lasix changed to PO
Recc outpt BMP In 1 week, result to PCP
# Anxiety/insomnia
# Likely adjustment disorder
prn Ativan (she takes 1 tablet daily currently), informed about judicious use of Ativan given S/E profile
Cont SUPERVISOR PATCHING Zoloft
Cont SUPERVISOR PATCHING trazodone for sleep
# History of colon mass / cancer, stable
# Essential Hypertension
Cont SUPERVISOR PATCHING Lopressor with hold parameters
# Hypothyroidism
TSH 1.95
Cont synthroid
# Non-Hodgkin's Lymphoma (25 years ago)
# Iron deficiency anemia, stable
# Hemorrhoids / Chronic Constipation
recent diarrhea which appear to have resolved, monitor
Consider stool studies/C.Diff if recurs
# Hyperlipidemia
cont statin
DVT proph-Lovenox
Full Code confirmed
DW Card
Anticipated Discharge: Within 24 hours
Subjective/Interval History
-
Date of Service: January 18, 2024
Objective Data
-
Labs:
Laboratory Results
01/18/24
05:20
Sodium 138
Potassium 3.7
Chloride 98
Carbon Dioxide 27
BUN 31 H
Creatinine 1.2 H
Glucose 92
Calcium 9.8
Vital Signs:
Vital Signs
Temp Pulse Resp BP Pulse Ox
36.3 C 74 16 140/80 96
01/18/24 07:22 01/18/24 08:32 01/18/24 07:22 01/18/24 08:32 01/18/24 10:11
I&O
01/17/24 01/18/24 01/19/24
06:59 06:59 06:59
Intake Total 420 / 420 2219
Balance 420 / 420 2219
Review of Systems
-
All other systems: Reviewed and negative
Physical Exam
-
General: Well Developed, Well Nourished, No Apparent Distress, Comfortable and Conversant
Respiratory: Clear to Auscultation and Non Labored Respirations; Negative Accessory Resp Muscle Use
Cardiac: Regular Rhythm, S1/S2 and Murmur; Negative Rub or Gallop
GI: Soft, Nondistended and Normal Bowel Sounds; Negative Organomegaly
Musculoskeletal: No Clubbing, No Cyanosis and No Edema
Neuro: Awake and Alert
Psych: Calm and Intact Judgement/Insight
Data Reviewed
-
Labs: Labs Reviewed by me
[2024-01-18] MEDS: TYLENOL 650 MG PO ×2 (12:09→19:28)
--- NOTE | 2024-01-18 15:20 | CM ---
Case management following for d/c planning
Chart reviewed and spoke with pt
PT recommending HH - discussed with pt - no preference
[facility]
Pt requesting list of Assisted Living Facilities
Plan - home with VN
--- NOTE | 2024-01-18 16:12 | VNURNOTE ---
Home Health Liaison met with patient at 1600 to discuss [facility] nurse/therapy, visits, schedule and homebound status. Patient is agreeable only for SN and understands that visits at home will be 2-3 x per week to assess and teach medical management.
Patient does not have a scale, [facility] referral requesting scale be provided at start of care.
[facility] brochure provided with contact information. Patient is aware that [facility] will contact her for start of care in 1-2 days after discharge from .
[facility] referral completed in [facility].
[2024-01-18] MEDS: TOPROL XL 50 MG PO (17:15)
[2024-01-18] MEDS: LIPITOR 10 MG PO (17:15)
[2024-01-18] MEDS: LOVENOX 40 MG SC (17:15)
[2024-01-18] MEDS: NEURONTIN 300 MG PO (21:23)
[2024-01-18] MEDS: DESYREL 25 MG PO (21:32)
[2024-01-19 03:15] VITALS: BP 151/96
[2024-01-19] MEDS: SYNTHROID 50 MCG PO (05:52)
[2024-01-19 06:00] VITALS: BMI 23.8
[2024-01-19 06:16] LABS: Blood Urea Nitrogen 34 mg/dl (7-17); Calcium 10.1 mg/dl (8.4-10.2); Carbon Dioxide 32 mmol/L (22-30); Chloride 96 mmol/L (98-107); Estimated Creatinine Clearance 31 ml/min; Glucose 93 mg/dl (70-99); Magnesium 2.1 mg/dl (1.6-2.3); Sodium 139 mmol/L (135-145); eGFR 48.03
[2024-01-19 07:00] VITALS: BP 177/60
[2024-01-19] MEDS: DETROL LA 4 MG PO (08:09)
[2024-01-19] MEDS: LASIX 20 MG PO (08:09)
[2024-01-19] MEDS: COLACE 100 MG PO (08:09)
[2024-01-19] MEDS: VITAMIN D3 (cholecalciferol) 25 MCG PO (08:10)
[2024-01-19] MEDS: ZOLOFT PO (08:11)
[2024-01-19] MEDS: TYLENOL 650 MG PO (08:13)
[2024-01-19 08:45] VITALS: BP 160/62; PULSE 53; O2SAT 96
--- NOTE | 2024-01-19 10:18 | W.PN.HOSP.TC ---
Addendum entered and electronically signed by Mary Beth Adames MD 01/19/24 12:55:
Total DC time 35 minutes
Original Note:
Today's Communication/Plan
-
DC home with HH
Assessment / Plan
Assessment / Plan
HPI: 88-year-old female with PMH significant for HTN, non-Hodgkin's lymphoma, anxiety, colon resection 06/2022 for colon mass, presented from home (lives alone- recently lost her 1 mo ago and prior to that he was ill for 6 years) with
symptoms of dizziness, nausea, diarrhea for 2 days after eating at [employer] and having 2 gin and tonics, and SOB. She typically does not drink alcohol frequently per her report. 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
She is diuresing well in ED after Lasix IV given. She knows about moderate , and says she would not want surgery if it came to that.
A/P:
# Concern for acute on chronic HFpEF in setting of valvular heart disease with moderate aortic stenosis and possibly progression of
IV Lasix 20 mg BID changed to oral lasix 20 mg daily.
monitor I/O, daily weights
Echo noted: EF 57%. Severe aortic stenosis. Mild to moderate aortic regurgitation. Compared to the previous echo aortic stenosis has progressed from moderate to severe, no other significant change.
TSH 1.95
Card on board
# HASEEB likely cardiorenal syndrome
SCr today at 1.1, from baseline 0.8
IV Lasix changed to PO
Recc outpt BMP In 1 week, result to PCP
# Anxiety/insomnia
# Likely adjustment disorder
prn Ativan (she takes 1 tablet daily currently), informed about judicious use of Ativan given S/E profile
Cont OPERATIONS ADMINISTRATIVE ASSISTANT Zoloft
Cont OPERATIONS ADMINISTRATIVE ASSISTANT trazodone for sleep
# History of colon mass / cancer, stable
# Essential Hypertension
Cont OPERATIONS ADMINISTRATIVE ASSISTANT Lopressor with hold parameters
# Hypothyroidism
TSH 1.95
Cont synthroid
# Non-Hodgkin's Lymphoma (25 years ago)
# Iron deficiency anemia, stable
# Hemorrhoids / Chronic Constipation
recent diarrhea which appear to have resolved, monitor
Consider stool studies/C.Diff if recurs
# Hyperlipidemia
cont statin
DVT proph-Lovenox
Full Code confirmed
Anticipated Discharge: Today
Subjective/Interval History
-
Date of Service: January 19, 2024
Objective Data
-
Labs:
Laboratory Results
01/19/24
05:26
Sodium 139
Potassium 4.0
Chloride 96 L
Carbon Dioxide 32 H
BUN 34 H
Creatinine 1.1 H
Glucose 93
Calcium 10.1
Vital Signs:
Vital Signs
Temp Pulse Resp BP Pulse Ox
36.7 C 56 18 177/92 93
01/19/24 07:00 01/19/24 08:09 01/19/24 07:00 01/19/24 08:09 01/19/24 09:22
I&O
01/18/24 01/19/24 01/20/24
06:59 06:59 06:59
Intake Total 2220 / 2220 1080 / 1080
Balance 2220 / 2220 1080 / 1080
Review of Systems
-
All other systems: Reviewed and negative
Physical Exam
-
General: Well Developed, Well Nourished, No Apparent Distress, Comfortable and Conversant
Respiratory: Clear to Auscultation and Non Labored Respirations; Negative Accessory Resp Muscle Use
Cardiac: Regular Rhythm, S1/S2 and Murmur; Negative Rub or Gallop
GI: Soft, Nondistended and Normal Bowel Sounds; Negative Organomegaly
Musculoskeletal: No Clubbing, No Cyanosis and No Edema
Neuro: Awake and Alert
Psych: Calm and Intact Judgement/Insight
Data Reviewed
-
Labs: Labs Reviewed by me
--- NOTE | 2024-01-19 10:37 | CM ---
Addendum entered by Wendy Tijerina 01/19/24 11:34:
Pt will have ride when ready for d/c
Original Note:
Case management following for d/c planning
Pt for d/c today
VN with [facility]
Plan - home with [facility]
[2024-01-19 11:30] VITALS: BP 148/69
--- NOTE | 2024-01-19 12:40 | W.DCSUMMARY ---
Discharge Summary
Discharge Data
Date of Admission: 01/16/24
Date of Discharge: 01/19/24
-
Pending Results: No
Hospital Course
Principal Diagnosis:
Concern for acute on chronic heart failure with preserved ejection fraction (HFpEF) in setting of valvular heart disease with moderate aortic stenosis and now severe aortic stenosis.
Acute kidney injury (HASEEB), possible cardiorenal syndrome
Likely adjustment disorder with recent loss/ of spouse
Chronic Diagnoses:�
Anxiety/insomnia
History of colon mass / cancer, stable
Essential Hypertension
Hypothyroidism
Non-Hodgkin's Lymphoma (25 years ago)
Iron deficiency anemia, stable
Hemorrhoids / Chronic Constipation
Hyperlipidemia
Consultations:�
Cardiology
Procedures:�
None
Clinical course:�
This is a 88-year-old female with past medical history as stated above, who presented with nausea and dizziness due to drinking gin and tonic. She also complained of shortness of breath and received IV Lasix in the emergency room.
Problem 1:
Acute on chronic HFpEF in setting of valvular heart disease with moderate aortic stenosis and possibly progression of
Patient initially received IV Lasix 20 mg twice daily, and this was changed to oral lasix 20 mg daily.
Her Echo this admission noted: EF 57%. Severe aortic stenosis. Mild to moderate aortic regurgitation. Compared to the previous echo aortic stenosis has progressed from moderate to severe, no other significant change.
Problem 2:
HASEEB likely cardiorenal syndrome.
Her serum creatinine was at 1.1 from baseline 0.8.
She can continue with low-dose oral Lasix 20 mg daily and repeat BMP in 1 week with result to her PCP.
Problem 3:
Likely adjustment disorder with recent loss/ of spouse.
She can continue with trazodone as needed for sleep.
She has been advised to avoid benzodiazepine for anxiety, and she is aware to avoid drinking alcohol.
Her mood has been stable during her hospital stay.
As for the rest of her medical problems, they were stable during her hospital stay.
Discharge Plan
-
Patient Disposition: Home with Home Care
Discharge Diagnosis/Procedures: Acute on chronic diastolic heart failure with now severe aortic stenosis (was moderate)
Condition: Fair
Diet: As tolerated, Low Fat, Low Cholesterol and Low Sodium
Activity: As tolerated
Driving Restrictions: As prior to admission
Blood Work: BMP in 1 week
Specialty Instructions: Weigh Daily- Call MD for wt gain/loss 3 lbs overnight/5 lbs in 1 week
Instructions: *[facility] Heart Failure Instructions
Referrals:
Jasmyn Tolentino CRNP [Specified Professional Personl] - 01/24/24 1:00 pm (You have a cardiology follow up appointment at the [place] office with Dr. Espinosa's nurse practitioner, Jasmyn. Please call with questions. )
Khoa Rajan, [Family Provider] - in less than 1 week
Additional Discharge Medication Instructions: Continue Lasix 20 mg daily
Prescriptions:
New
furosemide 20 mg Tablet
20 mg PO DAILY Qty: 30 0RF
Continued
levothyroxine 50 MCG tablet
50 mcg PO DAILY
metoprolol succinate 50 mg Tablet Extended Release 24 Hr
50 mg PO QPM
atorvastatin 10 mg Tablet
10 mg PO QPM
cholecalciferol (vitamin D3) 25 mcg (1,000 unit) Tablet
25 mcg PO DAILY
acetaminophen [Tylenol] 325 mg Tablet
650 mg PO Q4HPRN PRN (Reason: mild pain)
docusate sodium [Colace] 100 mg Capsule
100 mg PO DAILY
gabapentin 300 mg Capsule
300 mg PO HS
sertraline 50 mg Tablet
50 mg PO DAILY
vitamin E 268 mg (400 unit) Capsule
268 mg PO DAILY
solifenacin [Vesicare] 10 mg Tablet
10 mg PO DAILY
trazodone 50 mg Tablet
25 mg PO HSPRN PRN (Reason: sleep) Qty: 14 0RF
Discharge Orders:
Discharge Patient (As Directed); Ordered 01/19/24
Ordered By: Mary Beth Adames
Discharge Date and Time
Discharge Date/Time: 01/19/24 12:05
Print Language: BRAZILIAN
== END 2024-01-19 12:05 | disposition home health service (06) ==
LOC: 3 WEST ACU 14:52
PROVIDERS: Registered Nurse; ADMITTING PHYSICIAN Internal Medicine; ATTENDING PHYSICIAN Internal Medicine; EMERGENCY PHYSICIAN Emergency Medicine; FAMILY PHYSICIAN Family Medicine Sports Medicine; OTHER PHYSICIAN Nuclear Medicine Nuclear Cardiology
DX: I11.0 Hypertensive heart disease with heart failure (principal); I50.33 Acute on chronic diastolic (congestive) heart failure; N17.9 Acute kidney failure, unspecified; I35.2 Nonrheumatic aortic (valve) stenosis with insufficiency; R10.9 Unspecified abdominal pain; R07.9 Chest pain, unspecified; F41.9 Anxiety disorder, unspecified; F32.A Depression, unspecified; R42 Dizziness and giddiness; R06.02 Shortness of breath; R11.0 Nausea; R19.7 Diarrhea, unspecified; J42 Unspecified chronic bronchitis; E03.9 Hypothyroidism, unspecified; D63.8 Anemia in other chronic diseases classified elsewhere; I45.10 Unspecified right bundle-branch block; R06.09 Other forms of dyspnea; K59.09 Other constipation; D50.9 Iron deficiency anemia, unspecified; G47.00 Insomnia, unspecified; E78.5 Hyperlipidemia, unspecified; Z89.012 Acquired absence of left thumb; Z60.2 Problems related to living alone; Z85.72 Personal history of non-Hodgkin lymphomas; Z90.49 Acquired absence of other specified parts of digestive tract; Z63.4 Disappearance and death of family member; Z87.891 Personal history of nicotine dependence; Z87.19 Personal history of other diseases of the digestive system; Z85.038 Personal history of other malignant neoplasm of large intestine; Z79.890 Hormone replacement therapy; Z92.21 Personal history of antineoplastic chemotherapy
CPT/HCPCS: 71046; 80048; 80053; 80061; 82077; 83735; 83880; 84443; 84484; 85025; 85027; 93005; 93306; 96374; 96375; 97161; 97166; 99285; G0378

== ENCOUNTER 2024-02-02 07:58 | Day surgery (SDC) | payer OTHER, SELFPAY ==
[2024-02-02] VITALS (9 sets, daily range): BP systolic 97–148; BP diastolic 42–108; BMI 24.5
--- NOTE | 2024-02-02 08:55 | CONSULT.STRU ---
Consultation
-
Date/Time Consultation Requested: 02/02/2024
Date/Time Consultation Performed: 02/02/2024
Requesting Provider: Rhonda Faustin MD
Performing Provider: GUSTAVO Coyne
Reason for Consultation: /TAVR
Patient History
Physicians
Family Physician: Khoa Rajan DO
Outpatient Residential Construction Instructor: Mendoza Hyde MD
Primary Residential Construction Instructor: Mendoza Hyde MD
History of Present Illness
Ms. Dowell (she prefers to be called Adam) is a pleasant 89 yof that presents with symptomatic associated with DUKE. She states she only becomes SOB when she becomes anxious. Her echocardiogram from 01/17/2024 is notable for an EF 57% aortic
valve P/M 89/44, CARMEN 0.8, pk Elliot: 4.72, mild-moderate AI, MAC with trace MR, mild TR with PAP 25-30. Discussed the pathophysiology and treatment options of including SAVR and TAVR. Patient states there is no way she would like open heart.
Explained the evaluation process comprising of CT scan, CT surgical consult, and a heart team discussion. Ms. Dowell is edentulous, therefore she will not require dental clearance. TAVR booklet, contact information, appointments, and
prescriptions given to patient. Allowed for and answered questions.
Past Medical History
Past Medical History: Cancer (non-hodgkins lymphoma-chemo (2001)), CHF (HFpEF), HTN, Valvular Disease (aortic stenosis) and Other (colon mass, iron deficiency anemia, multinodular goiter, vit D deficiency, retinal vein occlusion, osteopenia, PE,
diverticulosis, COVID)
Past Surgical History
Past Surgical History: Other (bilateral cataract extraction, PHYLLIS, (R) colectomy (2021), I&D of post op wound infection (2021))
Dental History
edentulous
Family History
Mother: at Age (90)
Father: at Age (42) and Cause of (cancer)
Family Medical History: Cancer
Social History
Drug: None
Tobacco: Former Smoker
Personal:
Living: Alone
Allergies
Allergy/AdvReac Type Severity Reaction Status Date / Time
No Known Allergies Allergy Verified 02/02/24 08:16
Home Medications
�Medication �Instructions �Recorded �Confirmed �Type
levothyroxine 50 mcg tablet 50 mcg PO DAILY Thyroid 10/25/17 02/02/24 History
atorvastatin 10 mg tablet 10 mg PO QPM High cholesterol 04/07/22 02/02/24 History
cholecalciferol (vitamin D3) 25 25 mcg PO DAILY Supplement 04/07/22 02/02/24 History
mcg (1,000 unit) tablet
acetaminophen 325 mg tablet 650 mg PO Q4HPRN PRN mild pain 01/16/24 02/02/24 History
(Tylenol)
solifenacin 10 mg tablet (Vesicare) 10 mg PO DAILY Urinary Issue 01/16/24 02/02/24 History
vitamin E 268 mg (400 unit) capsule 268 mg PO DAILY Supplement 01/16/24 02/02/24 History
furosemide 20 mg tablet 20 mg PO DAILY #30 tabs 01/19/24 02/02/24 Rx
trazodone 50 mg tablet 25 mg (1/2 x 50 mg) PO HSPRN PRN 01/19/24 02/02/24 Rx
sleep #14 tabs
bisacodyl 5 mg tablet (Women's 15 mg PO DAILY Constipation 02/02/24 02/02/24 History
Laxative (bisacodyl))
gabapentin 100 mg capsule 100 mg PO HS 02/02/24 02/02/24 History
nebivolol 10 mg tablet 10 mg PO DAILY 02/02/24 02/02/24 History
STS%
STS %: 5.73
Review of Systems
-
History Source: Patient
General: Reports Fatigue
HEENT: Reports No Symptoms
Respiratory: Reports DUKE
Cardiac: Reports No Symptoms
Abdomen/GI: Reports No Symptoms
: Reports No Symptoms
Musculoskeletal: Reports No Symptoms
Skin: Reports No Symptoms
Neurological: Reports No Symptoms
Vascular: Reports No Symptoms
Physical Exam
Vital Signs
Temp 98.1 F 02/02/24 08:52
Temp route: Oral 02/02/24 08:52
Pulse 41 02/02/24 08:52
Resp Rate 17 02/02/24 08:52
Blood pressure 141/48 02/02/24 08:52
Blood pressure extremity used: Left upper arm 02/02/24 08:52
Position: Lying 02/02/24 08:52
SaO2 97 02/02/24 08:52
Oxygen Mode of Delivery Room air 02/02/24 08:52
Can the patient verbally communicate their pain? Yes 02/02/24 08:52
Actual Weight 64.8 kg 02/02/24 08:54
Body Mass Index (BMI) 24.5 02/02/24 08:54
Labs
01/17/2024:
HH: 13.9/38.9
plt: 281K
BUN/Creatinine: 34/1.1
GFR: 48.03
Diagnostic Studies
Echocardiogram 01/17/2024:
CONCLUSIONS
Left ventricle is small in size. Mild concentric left ventricular hypertrophy.
Normal left ventricular systolic function. Normal regional wall motion. LV
ejection fraction is 57%.
Severe aortic stenosis. Peak/mean gradients across the aortic valve are 89/44
mmHg, the aortic valve area is 0.8 cm2.
Mild to moderate aortic regurgitation.
Mild tricuspid regurgitation. Estimated pulmonary artery pressure of 25-30
mmHg.
Compared to the previous echo aortic stenosis has progressed from moderate to
severe, no other significant change.
CXR 01/16/2024:
FINDINGS:
No focal consolidation, pleural effusion, or pneumothorax. Chronic mild biapical pleural-parenchymal scarring. The cardiomediastinal silhouette is stable. Chronic degenerative changes of the spine.
IMPRESSION:
No acute cardiopulmonary process.
Cardiac catheterization 02/02/2024:
CONCLUSIONS
1. Non-obstructive coronary artery disease.
2. Elevated right and left-sided filling pressures with normal cardiac output.
3. Severe symptomatic aortic stenosis with NYHA class II symptoms with most recent echocardiogram from December 2023 showing mean transaortic gradient of 44 mmHg.
RECOMMENDATIONS
1. Continue with workup for possible transcatheter aortic valve replacement (TAVR) with plan for outpatient CTA of chest, abdomen and pelvis per TAVR protocol and CT surgery evaluation.
Exam
General: Well Developed, Well Nourished, No Apparent Distress and Comfortable
HEENT: Normocephalic, Moist Mucous Membranes and EOMI
Neck: Trachea Midline
Respiratory: Clear
Cardiac: Regular Rhythm and Murmur (III/ HOLLY)
GI: Soft, Non Tender and Non Distended
Rectal: Deferred by Provider
Skin: Warm and Dry
Neuro: Awake, Alert, Oriented and AO x 3
Extremities: Lower Level Edema (trace bilateral)
Psych: Calm and Other (becomes anxious with needles)
Assessment / Plan
-
Aortic Stenosis:
Continue with TAVR evaluation
Trend creatinine after contrast (Rx given-[facility])
TAVR CT SCAN (02/16)
CT surgical consult (MPT 02/21)
Frailty testing and KCCQ12 at consult
Dental clearance
Will need to start aspirin
RBBB-notify EP of TAVR date
Heart team discussion
Data Reviewed
-
EKG: Tracing Personally Visualized and interpreted (SB)
Solar Systems Designer: Report Reviewed by me and Discussed with Physician
Echo: Report Reviewed by me and Discussed with Physician
Radiology: Report Reviewed by me (CXR)
Labs: Labs Reviewed by me
Old Records: Reviewed (Dr. Faustin's OV)
Total Time Spent with Patient (in minutes): 45
[2024-02-02] MEDS: NSS 194 ML IV (09:01)
[2024-02-02] MEDS: LOW STRENGTH ASPIRIN 324 MG PO (09:07)
--- NOTE | 2024-02-02 12:09 | ITS.CL.CATH ---
Unit Controller - Catheterization
Cardiac Catheterization
Procedure Report:
LEFT AND RIGHT HEART CATHETERIZATION
Date of Procedure: February 02, 2024
Referring: Jasmyn Garibayt
PROCEDURES:
1. Left heart catheterization, coronary angiogram.
2. Right heart catheterization.
3. Ultrasound-guided access
INDICATION: Pre-TAVR workup with NYHA class II symptoms and most recent echocardiogram from December, showing a mean transaortic gradient of 44 mmHg consistent with severe symptomatic aortic stenosis
ACCESS:
1. Right radial artery, 6 [place] sheath, under ultrasound guidance.
2. Right brachial vein, 6 [place] sheath.
HEMODYNAMICS : (mmHg)
RA (m) : 9
RV (s/d,m) : 44/7, 11
PA (s/d, m) : 46/16, 27
PCWP (m) : 18
PA saturation: 65.3% on room air
AO saturation: 85.7% on room air
RA saturation: 64.3% on room air
Cardiac Output : 4.25 L/min
Cardiac Index : 2.5 L/min/m-2
Systemic vascular resistance: 1187 dsc^(-5)
Pulmonary vascular resistance: 2.12 aguirre unit
AO (s/d) : 124/48
CORONARY FINDINGS
DOMINANCE: Right
LEFT MAIN: The left main artery is a large-caliber, short vessel which gives rise to the left anterior descending artery and the left circumflex artery. There is minimal luminal irregularities.
LEFT ANTERIOR DESCENDING: The left into descending artery is a large-caliber vessel which gives rise to 1 major diagonal branch as it courses through the anterior interventricular groove and wraps around the apex. The diagonal branch has 60% ostial
stenosis and focal 50 to 60% stenosis in the proximal portion with ENIO-3 flow. LAD has minimal luminal irregularities.
CIRCUMFLEX: The left circumflex artery is a medium caliber vessel which gives rise to 1 very small caliber OM1 and a second medium to large caliber OM 2. There is minimal luminal irregularities.
RIGHT CORONARY ARTERY: The right coronary artery is a medium caliber, dominant vessel which gives rise to the right posterior descending artery and the right posterolateral system. There is minimal luminal irregularities.
SEDATION: 42 minutes of procedural sedation was utilized. An independent medical recruiter was present to assist with and help manage the patient's level of consciousness and physiologic status.
RADIATION SUMMARY: Fluoro Time (min): 5.5, Dose (mGy): 246.7, DAP (Gy.cm2) : 18.5
Closure Device:
1. Vascular band over right radial artery, 10 cc of air.
2. Manual pressure was held over the right brachial venous access site with successful hemostasis.
CONCLUSIONS
1. Non-obstructive coronary artery disease.
2. Elevated right and left-sided filling pressures with normal cardiac output.
3. Severe symptomatic aortic stenosis with NYHA class II symptoms with most recent echocardiogram from December 2023 showing mean transaortic gradient of 44 mmHg.
RECOMMENDATIONS
1. Continue with workup for possible transcatheter aortic valve replacement (TAVR) with plan for outpatient CTA of chest, abdomen and pelvis per TAVR protocol and CT surgery evaluation.
Rhonda Faustin MD, FACC, [facility]
[2024-02-02] MEDS: NSS 1000 IV (12:39)
== END 2024-02-02 15:10 | disposition home or self-care (01) ==
LOC: CATH 07:58
PROVIDERS: ATTENDING PHYSICIAN Internal Medicine Interventional Cardiology; FAMILY PHYSICIAN Family Medicine Sports Medicine
DX: I25.10 Atherosclerotic heart disease of native coronary artery without angina pectoris (principal); I08.2 Rheumatic disorders of both aortic and tricuspid valves; I11.0 Hypertensive heart disease with heart failure; I50.32 Chronic diastolic (congestive) heart failure; Z87.891 Personal history of nicotine dependence; Z79.82 Long term (current) use of aspirin
CPT/HCPCS: 99152; 99153; 93456; C1894; Q9967

== ENCOUNTER 2024-04-03 21:23 | Inpatient (IN) | payer OTHER, SELFPAY ==
[2024-04-03 16:14] VITALS: BP 112/81
[2024-04-03 16:52] LABS: % Basophils 0.8 % (0-2); % Immature Granulocytes 0.2 % (0-0.5); % Lymphocytes 23.5 % (20.5-51.1); % Monocytes 5.6 % (1.7-9.3); % Neutrophils 68.9 % (42.2-75.2); Absolute Basophils 0.1 10^3/uL (0-0.2); Absolute Eosinophils 0.1 10^3/uL (0-0.7); Absolute Lymphocytes 1.5 10^3/uL (1.2-3.4); Absolute Monocytes 0.4 10^3/uL (0.1-0.6); Absolute Neutrophils 4.3 10^3/uL (1.4-6.5); Hematocrit 39.9 % (37.0-47.0); Hemoglobin 13.5 g/dL (12.0-16.0); Mean Corp Hgb Conc. 33.8 g/dL (33.0-37.0); Mean Corpuscular Hgb 32.1 pg (27.0-31.0); Mean Platelet Volume 10.8 fL (7.4-10.4); Nucleated Red Blood Cells % 0 %; Platelet Count 313 10^3/uL (130-400); Red Cell Dist. Width 13.9 % (11.5-14.5); White Blood Cell Count 6.3 10^3/uL (4.8-10.8)
[2024-04-03 17:05] LABS: ALT (SGPT) 24 U/L (0-35); AST (SGOT) 31 U/L (14-36); Alkaline Phosphatase 99 U/L (38-126); Blood Urea Nitrogen 17 mg/dl (7-17); Calcium 10.1 mg/dl (8.4-10.2); Carbon Dioxide 33 mmol/L (22-30); Chloride 99 mmol/L (98-107); Glucose 103 mg/dl (70-99); Potassium 4.5 mmol/L (3.5-5.1); Sodium 142 mmol/L (135-145); Total Bilirubin 0.8 mg/dl (0.2-1.3); Total Protein 7.3 g/dl (6.3-8.2); eGFR 53.85
[2024-04-03 17:16] LABS: NT-proBNP 6420 pg/ml; Troponin I < 0.012 ng/ml
[2024-04-03 18:00] VITALS: BP 141/98
--- NOTE | 2024-04-03 18:22 | ED.GENMED ---
History of Present Illness
General
Chief Complaint: Breathing Problem
Source: patient
Exam Limitations: none
Time Seen by Provider: 04/03/24 17:53
History of Present Illness
History of Present Illness:
This is a 89 year old female that comes in with c/o SOB. State that for the past 2 nights she has been SOB and unable to sleep. States that she is very anxious States that this started on Wednesday night. States that she is to see Dr. Espinosa next
Wednesday to make arrangement to have her valve replaced. States that she did have dry heaves the past 2 nights. Patient denies any history of atrial fib. States that she is also having abd pain. Denies any fever, chills, chest pain nausea,
headache, dizziness, urinary burning.
Past History
Past History
ED Past Medical History: CAD, Cancer (Non-Hodgkin Lymphoma), CHF, HTN, Hypercholesterolemia, Hypothyroidism, Psychiatric (Anxiety ) and Other ( Chronic Bronchitis, Anemia, valve disorder)
ED Past Surgical History: Bowel resection (Colon resection) and Other (Left thumb amputation. )
Social History
Tobacco: Former smoker
Alcohol: Occasional (More then occasional 2 glasses wine)
Drug: None
Personal:
Living: alone
Employment: Other
Family History
Family History: Negative Diabetes
Review of Systems
Review of Systems
All Other Systems: ROS reviewed and negative except as documented in HPI and ROS
Constitutional: Reports no symptoms; Denies fever or chills
Respiratory: Reports trouble breathing; Denies cough
Cardiac: Reports no symptoms; Denies chest pain
ABD/GI: Reports abdominal pain and vomiting (Dry heaves); Denies nausea or diarrhea
: Reports no symptoms
Musculoskeletal: Reports no symptoms
Skin: Reports no symptoms
Neurological: Reports no symptoms; Denies dizzy or headache
Psychiatric: Reports no symptoms
Phy Exam
General Physical Exam
General Presentation: no apparent distress
General age: appears stated age
General Skin: warm and dry
General Habitus: elderly
General Mental: alert
General Hydration: appears well hydrated
ENT Exam
ENT Exam: TM's normal, pharynx normal and neck supple
Eye Exam
Eye Exam: EOMI
Cardiovascular Exam
Cardiovascular Exam: no edema, normal peripheral pulses, irregularly irregular and other (Murmur)
Pulmonary Exam
Pulmonary Exam: no respiratory distress, chest non tender, no rhonchi, no wheezing, no cough, decreased breath sounds and other (Rales left base Right base very decreased)
Gastrointestinal Exam
Gastrointestinal Exam: normal bowel sounds, soft, no organomegaly, no pulsatile mass, non distended and tender (LLQ tenderness with palpation)
Musculoskeletal Exam
Musculoskeletal Exam: full ROM and no edema
Skin Exam
Skin Exam: normal color, warm/dry, no rash and no petechia
Psychiatric Exam
Psychiatric Exam: normal mood/affect
Scores
Heart Failure Risk
Heart Failure Risk Score: Yes
History of Stroke or TIA: No
History of intubation for respiratory distress: No
Heart rate on ED arrival >/= 110: No
SaO2 <90% on arrival on room air: No
HR >/=110 during 3min walk test (or too ill to perform test): Yes
ECG has acute ischemic changes: No
Urea >/=12mmol/L (BUN 33.6mg/dL): No
Serum CO2>/=35mmol/L: No
Troponin I or T elevated to AR Level (0.4mg/dL): No
NT-proBNP >/=5,000ng/L (5,000pg/ml): Yes
HF Risk Score: 3
Admission Status: HIGH RISK 15.9% Consider SNF treatment or admission to hospital
Course
Orders/Labs/Results
Orders:
Orders
04/03/24 Dinner
Cholesterol Lowering
At Your Request: Full Participation
Does patient need a safe tray?: No
Fluid Restriction: 1440 mL/day (48 oz)
Cholesterol Lowering: Sodium, 2 Gram
04/03/24 16:19
ECG [Electrocardiogram (*1)] Urgent
Reason for Study: Shortness of Breath
04/03/24 16:36
Complete Blood Count/With Diff Urgent
Comprehensive Metabolic Panel Urgent
NT-proBNP Urgent
TSH Reflex To Free T4 Urgent
Comment: ADDON
Troponin I Urgent
04/03/24 18:13
CT Abd/pelvis W Iv Cont Urgent
Comment:
Reason For Exam: LLQ pain
CR Chest - 2 Views Urgent
Comment:
Reason For Exam: SOB
04/03/24 20:22
Diltiazem 125 mg/125 ml Nss [Cardizem] 125 mg in 125 ml IV NOW
Initial dose in mg/hr, then titrate:: 5
Titrate to keep:: Heart rate 80-100 bpm
Titrate by mg/hr:: 5 mg/hr
Frequency of titrations (minutes):: 15
Maximum dose in mg/hr:: 15
Diltiazem HCl [Cardizem] 10 mg IV NOW STA
04/03/24 20:54
Add On- LAB Urgent
Tests Added?: tsh with free t4 reflex
04/03/24 21:00
Admit/Transfer Patient As Directed
Co-Sign Provider:
Level of Care: Inpatient admission
Assign to:: Telemetry
Physician / Group: declan vazquez
Diagnosis: new onset afib, insomnia,chronic dyspnea/severe
Reason for Telemetry: Arrhythmia
Date to Stop Telemetry: 04/06/24
Time to Stop Telemetry: 11:00
Reason for Hospitalization: new onset afib, insomnia,chronic dyspnea/severe
Expected length of stay greater than two midnights?: Yes
ELOS- Estimated Length of Stay in days: 4
I certify the patient meets the requirements for IP care: Yes
04/03/24 21:01
Code Status As Directed
Resuscitation Status: Do not resuscitate
Reached after discussion with pt or family/Healthcare POA: Yes
DNR Bracelet Application ONCE
04/03/24 21:08
PRN Pain Medication Management As Directed
May give lesser potent ordered pain med per pt: Yes
preference::
Protocol:: Medication orders for pain may be administered in a
manner that supports deferring to patient preference
when the pt is:
- Requesting an ordered lesser potent pain medication.
Least to most potent pain medications are defined
as: acetaminophen < NSAID < tramadol < opioids
(morphine, oxycodone, hydromorphone).
- Requesting a lesser dose of the same medication IF
ORDERED.
- Requesting a less intrusive route of administration
if both routes are prescribed by the provider (PO <
IV).
04/03/24 22:55
Acetaminophen [Tylenol] 650 mg PO Q4HPRN PRN
Lorazepam [Ativan] 0.5 mg PO NOW STA
Tramadol HCl [Ultram] 50 mg PO DAILYPRN PRN
Trazodone [Desyrel] 50 mg PO HS
capsaicin-menthol [Salonpas (capsaicin-menthol)] 2 patch TOPICAL DAILYPRN PRN
04/03/24 22:55
Activity As Directed
Activity Level: With Assistance
Intake/ Output As Directed
Frequency: Per unit guidelines
Vital Signs As Directed
Frequency: Per unit guidelines
Weight As Directed
Frequency: Daily
Pulse Ox/spot Check [RESP] Routine
Quantity: 1
Pt Eval And Treat Routine
Activity Level: As Tolerated
DX Deep Vein Thrombosis Video Routine
04/03/24 23:00
Zolpidem Tartrate [Ambien] 5 mg PO HS
04/04/24 06:00
Complete Blood Count/With Diff IN AM
Comprehensive Metabolic Panel IN AM
Levothyroxine [Synthroid] 50 mcg PO DAILY @ 0600
04/04/24 08:00
Aspirin Low Dose EC [Aspir Low (Enteric Coated)] 81 mg PO DAILY
Bisacodyl [Dulcolax] 15 mg PO DAILY
Cholecalciferol (Vitamin D3) [VITAMIN D3 (cholecalciferol)] 25 mcg PO DAILY
Furosemide [Lasix] 40 mg PO DAILY
Heparin 5,000 units SC Q12
Nebivolol HCl [Bystolic] 10 mg PO DAILY
Tolterodine Extended Release [Detrol LA] 4 mg PO DAILY
04/04/24 18:00
Atorvastatin [Lipitor] 20 mg PO QPM
04/05/24 06:00
Complete Blood Count/With Diff IN AM
Comprehensive Metabolic Panel IN AM
04/06/24 06:00
Complete Blood Count/With Diff IN AM
Comprehensive Metabolic Panel IN AM
04/06/24 11:00
DC Protocol for Telemetry ONCE
Abnormal Lab Results
04/03/24
16:36
MCH 32.1 H pg
(27.0-31.0)
MPV 10.8 H fL
(7.4-10.4)
Carbon Dioxide 33 H mmol/L
(22-30)
Glucose 103 H mg/dl
(70-99)
04/03/24 16:36
04/03/24 16:36
carbon dioxide slightly elevated. Glucose nonfasting. Troponin <0.012, Pro-BNP elevated at 6420
Vital Signs
Initial and Last Documented VS:
Initial Vital Signs
Temp Pulse Resp BP Pulse Ox
97.8 F 79 18 112/81 100
04/03/24 16:14 04/03/24 16:14 04/03/24 16:14 04/03/24 16:14 04/03/24 16:14
Last Documented Vital Signs
Temp Pulse Resp BP Pulse Ox
97.5 F 85 20 134/88 96
04/04/24 03:09 04/04/24 03:09 04/04/24 03:09 04/04/24 03:09 04/04/24 03:09
MDM/Problems Addressed
Differential Diagnosis Includes:
CHF, Pleural effusion, Diverticulitis, Atrial fib
MDM/Problems Addressed:
This is a 89 year old female that comes in with c/o SOB and abd pain. States that this started 2 days ago. states that she hasn't slept in 2 nights.
will check labs. Chest x-ray, CT for abd pain. patient denies any history of atrial fib.
Chronic conditions affecting care: CAD and Psychiatric illness (Anxiety)
Acute Exacerbation and/or Progression of Chronic Illness: CAD and Psychiatric illness (Anxiety)
*Radiology
Radiology exam reviewed: radiology read reviewed (Chest-No acute cardiopulmonary process. Cannot rule out component of underlying chronic interstitial lung disease. CT-Findings suggesting mild enteritis/ileus. )
*Pulse Oximetry
Patient hypoxic: no
*EKG
Interpreted by ED Provider?: Yes
Heart Rate: 84
Rate: normal
Rhythm: a-fib
[place]: normal axis
QRS Pattern: right bundle branch block
Ischemia: T-wave inversion (II, III, aVF, V1, V2, V3, )
*Loading Unit Operator Powder Charging Interpretation
Rate: tachycardiac
Heart Rate: 112
Rhythm: a-fib
*Critical Care Note
Total Time (30-74mins, 75-104mins- exclusive of procedures): Not Applicable
ED Attending Note
-
Portions of this chart may have been created with voice recognition software.� Occasional wrong word or��sound alike� substitutions may have occurred due to the inherent limitations of voice recognition software.
Discharge Plan
Departure
Patient Disposition: Admit
Date of Disposition: 04/03/24
Time of Disposition: 20:24
Admit to: Telemetry
Presentation/result/management discussed w/ accepting MD/DO: Hospitalist
Patient with high blood pressure during this ER visit?: No
Condition: Good
Covid-19: Not Applicable
Discharge Problem:
Atrial fibrillation, new onset, SOB (shortness of breath)
Interventions
Interventions:
*Risk Screen - Suicide Last Done: 04/03/24 23:09
*General Assessment Last Done: 04/03/24 22:45
*Neglect/Abuse Screening Last Done: 04/03/24 22:45
ED- Fall Risk Assessment Last Done: 04/03/24 22:45
*ED COVID-19 Vaccine History Last Done: 04/03/24 22:45
*Nursing Disposition Last Done: 04/03/24 22:50
ED- Cardiac Assessment Last Done: 04/03/24 18:48
ED- Pulmonary Assessment Last Done: 04/03/24 18:48
Discharge Date and Time
Discharge Date/Time: 04/03/24 22:50
[2024-04-03 20:00] VITALS: BP 132/73
--- NOTE | 2024-04-03 20:31 | HPS.HSE ---
Family Physician
-
Family Physician: Khoa Rajan
Chief Complaint
-
Insomnia x 24 hours, abdominal pain
History of Present Illness
89-year-old female from home complaining she has not slept for the past 24 hours. She reports she normally takes trazodone 50 mg but took additional 25 mg with no relief. She denies any change in her baseline shortness of breath. She is however
complaining of left-sided periumbilical pain. She is status post colon resection for colon cancer with right hemicolectomy June 2022 at [facility] followed by laparoscopic I&D of abscess 07/16/[address] Couch at [facility]. She
never had any follow-up after this she reports. She denies headache, sore throat, fever, chills, chest pain, palpitations, nausea, vomiting, diarrhea, fever, chills.
She has past medical history severe aortic stenosis, colon cancer status post laparoscopic colon resection December 2023, HTN, HLD, chronic diastolic heart failure, chronic bronchitis, ex-smoker, stress incontinence urine, arthritis, hypothyroidism,
[place], non-Hodgkin's lymphoma, anxiety, colon resection 06/25/2022
Medical History
Past Medical History
Past Medical History: Reports Other
Additional Past Medical History:
Colon Mass / Cancer resection reports right hemicolectomy June 2022 [facility]
colon Abscess with laparoscopic drainage 07/07/2022
Hypertension
Hypothyroidism
Non-Hodgkin's Lymphoma (25 years ago)
Aortic Stenosis
Iron deficiency anemia
Hemorrhoids / Chronic Constipation
Anxiety / Depression
Hyperlipidemia
Past Surgical History: Reports Other
Additional Past Surgical History:
Right Hemicolectomy (06/2022) at [facility]
Abscess of I&D post right hemicolectomy 07/16/2022 [facility] by Dr. Couch
Patient denies any prior surgeries.
Social History
Tobacco: Former Smoker (Quit 50 years ago.)
Alcohol: Occasional (2 glasses of wine 3 days a week has not had a drink in 1 week)
Drug: None
Living: Alone
Family History
Family History: Not pertinent
Allergies / Home Medications
Allergies reflects when Allergies were last updated in [facility].
Home Medications with original date entered in [facility]
Allergy/Medication List:
Allergies
Allergy/AdvReac Type Severity Reaction Status Date / Time
No Known Allergies Allergy Verified 04/03/24 16:17
Home Medications
levothyroxine 50 mcg tablet 50 mcg PO DAILY Thyroid 10/25/17
cholecalciferol (vitamin D3) 25 mcg (1,000 unit) tablet 25 mcg PO DAILY Supplement 04/07/22
acetaminophen 325 mg tablet (Tylenol) 650 mg PO Q4HPRN PRN mild pain 01/16/24
solifenacin 10 mg tablet (Vesicare) 10 mg PO DAILY Urinary Issue 01/16/24
vitamin E 268 mg (400 unit) capsule 268 mg PO DAILY Supplement 01/16/24
aspirin 81 mg tablet,delayed release 81 mg PO DAILY #1 tab 02/02/24
bisacodyl 5 mg tablet (Women's Laxative (bisacodyl)) 15 mg PO DAILY Constipation 02/02/24
furosemide 40 mg tablet (Lasix) 40 mg PO DAILY #90 tabs 02/02/24
nebivolol 10 mg tablet 10 mg PO DAILY 02/02/24
atorvastatin 20 mg tablet 20 mg PO QPM 04/03/24
capsaicin-menthol 0.025 %-1.25 % topical patch (Salonpas (capsaicin-menthol)) 2 patch topical DAILYPRN PRN right arm 04/03/24
eszopiclone 1 mg tablet 1 mg PO HS 04/03/24
lidocaine HCl 4 %-benzyl alcohol 10 % topical liquid roll-on (Salonpas Lidocaine Plus) 1 ea topical BIDPRN PRN right arm and legs 04/03/24
tramadol 50 mg tablet 50 mg PO DAILYPRN PRN moderate pain 04/03/24
trazodone 50 mg tablet 50 mg PO HS 04/03/24
Review of Systems
-
History Source: Patient
A 12 point ROS was completed and negative except as noted: Yes
Constitutional: Reports Other (Insomnia x 24 hours); Denies Fever or Chills
EENT: Denies Sore Throat or Mouth Swelling
Respiratory: Reports Trouble Breathing (Chronic); Denies Cough
Cardiac: Denies Chest Pain, Diaphoresis, Palpitations or Syncope
Abdomen/GI: Reports Abdominal Pain (To left of umbilicus); Denies Nausea, Vomiting, Diarrhea or Constipated
: Denies Dysuria, Frequency, Flank Pain, Incontinence, Difficulty Voiding or Urgency
Musculoskeletal: Denies Joint Pain or Muscle Pain
Skin: Denies Itching or Rash
Neurological: Denies Dizzy, Headache or Weakness
Endocrine: Reports No Symptoms
Hematologic/Lymphatic: Reports No Symptoms
Psych: Reports Calm
Physical Exam
Vital Signs
Vital Signs
Temp Pulse Resp BP Pulse Ox
97.8 F 79 18 112/81 100
04/03/24 16:14 04/03/24 16:14 04/03/24 16:14 04/03/24 16:14 04/03/24 16:14
Physical Exam
General: Conversant and Pain (To left of umbilicus); No Fever or Chills
HEENT: NormoCephalic, Anicteric, PERRLA, [place] Conjunctivae and No Ptosis
Respiratory: Clear; No Wheezes, Rales or Rhonchi
Cardiac: S1/S2, Irregular Rhythm (A-fib HR 74 bpm), Murmur (4/6 systolic) and Peripheral Edema (Trace bilateral); No Rub or Gallop
Breast: Deferred by me
GI: Soft, Non Distended, Normal Bowel Sounds, Tender (To left of umbilicus) and No Hepatosplenomegaly
Genito-urinary: Deferred by me
Musculoskeletal: No Clubbing, No Cyanosis, Edema, Left Lower Extremity (Trace) and Edema, Right Lower Extremity (Trace); No Edema, Left Upper Extremity or Edema, Right Upper Extremity
Skin: Warm and Dry; No Rash or Jaundice
Neuro: AO x 3 (Slight poor historian regarding dates), No Motor Deficits, Nonfocal/grossly intact, Cranial Nerves Intact and No Sensory Deficits; No Slurred Speech, Facial Droop or Tremors
Psych: Calm
Laboratory Results
-
04/03/24 16:36
04/03/24 16:36
Laboratory Results
Total Bilirubin 0.8 mg/dl (0.2-1.3) 04/03/24 16:36
AST 31 U/L (14-36) 04/03/24 16:36
ALT 24 U/L (0-35) 04/03/24 16:36
Alkaline Phosphatase 99 U/L (38-126) 04/03/24 16:36
Troponin I < 0.012 ng/ml 04/03/24 16:36
Impression/Plan
-
Impression/plan:
Admit to telemetry
#New onset A-fib
Heart rate controlled 74 bpm
Continue nebivolol
-IV heparin drip
-Consult [facility] cardiology
2D echo 01/17/2024: EF 57%, mild LVH,
severe aortic stenosis peak mean gradient 89/44.
Mild to moderate aortic regurg, mild TR, pulm arterial pressure 25�30
CXR: No acute cardiopulmonary process cannot rule out underlying chronic interstitial lung disease
#Chronic dyspnea secondary to severe aortic stenosis
-Patient reports had follow-up next week with Dr. Yolanda Espinosa
Severe symptomatic aortic stenosis with NYHA class II symptoms with most recent echocardiogram from December 2023
showing mean transaortic gradient of 44 mmHg
Cardiac cath 02/02/2024:
1. Non-obstructive coronary artery disease.
2. Elevated right and left-sided filling pressures with normal cardiac output.
3. Severe symptomatic aortic stenosis with NYHA class II symptoms with most recent echocardiogram from December 2023
showing mean transaortic gradient of 44 mmHg.
# Acute on chronic insomnia
Patient reports not sleeping for the past 24 hours
#Acute abdominal pain near left laparoscopic abdominal site
#Colon cancer with right hemicolectomy June 2022 at [facility] followed by laparoscopic I&D of abscess 07/16/[address] Couch at [facility]
-Check CT abdomen pelvis
#Alcohol use
Patient reports drinks 2 glasses of wine 3 times a week last drink was 1 week ago
#HTN�benign
-Continue nebivolol
#HLD
#Chronic bronchitis
#Ex-smoker
#Chronic diastolic heart failure
BNP 6420
I/O, daily weights
#Hypothyroidism
-Continue levothyroxine
Check TSH with free T4 reflex
Non-Hodgkin's lymphoma
Treated by retired oncologist patient unaware of name
#Anxiety
#Iron deficiency anemia
Hgb 13.5, MCV 95
DVT prophylaxis
DNR per patient
[2024-04-03] MEDS: CARDIZEM 10 MG IV (20:51)
[2024-04-03 20:53] VITALS: BP 130/59
[2024-04-03] MEDS: CARDIZEM 125 IV (20:57)
[2024-04-03 21:04] VITALS: BP 124/81
[2024-04-03 21:43] VITALS: BMI 25.5
[2024-04-03] MEDS: ATIVAN 0.5 MG PO (21:57)
[2024-04-03 22:04] LABS: TSH Reflex To Free T4 0.53 uIU/ml (0.47-4.68)
--- NOTE | 2024-04-03 23:09 | W.PN.UPDATE ---
Update Note
Progress Note Update
This is an addendum to the H&P written by Mckenzie Lee on 04/03/2024. Patient seen and examined independently with SAFETY INSTRUCTOR.
89-year-old female past medical history of HFpEF, severe aortic stenosis, colon cancer status post right hemicolectomy in 2021 with postop abscess status post I&D, hypertension, hypothyroidism, non-Hodgkin's lymphoma, iron deficiency anemia,
hyperlipidemia here for shortness of breath secondary to new onset atrial fibrillation with normal heart rate. Also came in for insomnia.
Chest x-ray unremarkable. Cardiac BNP of 6000. Patient did not require Cardizem drip. Started heparin drip.
Patient has been complaining of left lower quadrant abdominal pain for few days. CT abdomen pelvis shows findings suggesting mild enteritis/ileus. This does not seem to be related to her prior hemicolectomy. Continue to monitor pain although
expect this to improve on its own.
Ativan dose for insomnia.
[2024-04-03 23:23] VITALS: BMI 25.5
[2024-04-03 23:54] VITALS: BP 139/69; BMI 25.6
[2024-04-03] MEDS: AMBIEN 5 MG PO (23:55)
--- NOTE | 2024-04-03 23:55 | PTCARENOTE ---
Pt arrived to room 417-02. Pt ambulated from stretcher to bed with single point cane. Pt AAOx3, VSS. Pt oriented to room, call flores placed within reach.
[2024-04-04] VITALS (7 sets, daily range): BP systolic 96–139; BP diastolic 60–96; O2SAT 96; BMI 25.6
[2024-04-04] MEDS: DESYREL PO (00:41)
[2024-04-04] MEDS: SYNTHROID 50 MCG PO (04:41)
[2024-04-04 06:33] LABS: % Basophils 1.1 % (0-2); % Eosinophils 2.8 % (0-6); % Immature Granulocytes 0.4 % (0-0.5); % Lymphocytes 33.2 % (20.5-51.1); % Monocytes 8.5 % (1.7-9.3); Absolute Basophils 0.1 10^3/uL (0-0.2); Absolute Eosinophils 0.2 10^3/uL (0-0.7); Absolute Lymphocytes 1.8 10^3/uL (1.2-3.4); Absolute Monocytes 0.5 10^3/uL (0.1-0.6); Absolute Neutrophils 2.9 10^3/uL (1.4-6.5); Mean Corp Hgb Conc. 34.2 g/dL (33.0-37.0); Mean Corpuscular Hgb 33.4 pg (27.0-31.0); Mean Corpuscular Volume 97.7 fL (81.0-99.0); Nucleated Red Blood Cells % 0 %; Platelet Count 260 10^3/uL (130-400); Red Blood Cell Count 3.89 10^6/uL (4.20-5.40); Red Cell Dist. Width 13.8 % (11.5-14.5); White Blood Cell Count 5.3 10^3/uL (4.8-10.8)
[2024-04-04 07:01] LABS: ALT (SGPT) 18 U/L (0-35); AST (SGOT) 25 U/L (14-36); Albumin 4.1 g/dl (3.5-5.0); Alkaline Phosphatase 82 U/L (38-126); Blood Urea Nitrogen 16 mg/dl (7-17); Calcium 9.7 mg/dl (8.4-10.2); Carbon Dioxide 33 mmol/L (22-30); Chloride 101 mmol/L (98-107); Estimated Creatinine Clearance 37 ml/min; Glucose 94 mg/dl (70-99); Potassium 3.7 mmol/L (3.5-5.1); Sodium 141 mmol/L (135-145); Total Bilirubin 0.9 mg/dl (0.2-1.3); Total Protein 6.2 g/dl (6.3-8.2); eGFR > 60.00
--- NOTE | 2024-04-04 09:10 | W.PN.HOSP.TC ---
Today's Communication/Plan
-
Discharge tomorrow
Assessment / Plan
Assessment / Plan
HPI: 89-year-old female from home complaining she has not slept for the past 24 hours. She reports she normally takes trazodone 50 mg but took additional 25 mg with no relief. She denies any change in her baseline shortness of breath. She is
however complaining of left-sided periumbilical pain. She is status post colon resection for colon cancer with right hemicolectomy June 2022 at [facility] followed by laparoscopic I&D of abscess 07/16/[address] Couch at [facility].
She never had any follow-up after this she reports. She denies headache, sore throat, fever, chills, chest pain, palpitations, nausea, vomiting, diarrhea, fever, chills.
#New onset A-fib
Status post IV diltiazem
Rate now controlled, continue nebivolol
Likely will need anticoagulation�will defer to cardiology
TSH normal, check echocardiogram
#Chronic dyspnea secondary to severe aortic stenosis
Patient reports had follow-up next week with Dr. Yolanda Espinosa
Severe symptomatic aortic stenosis with NYHA class II symptoms with most recent echocardiogram from December 2023 showing mean transaortic gradient of 44 mmHg
Cardiology consulted
Cardiac cath 02/02/2024:
1. Non-obstructive coronary artery disease.
2. Elevated right and left-sided filling pressures with normal cardiac output.
3. Severe symptomatic aortic stenosis with NYHA class II symptoms with most recent echocardiogram from December 2023
showing mean transaortic gradient of 44 mmHg.
#Acute on chronic insomnia
#Anxiety
#Bereavement
Continue Ambien 5 mg at bedtime, trazodone 50 mg at bedtime
Start melatonin 5 mg at bedtime
Recently lost her 3 months ago, will order Ativan as needed while in the hospital
#Acute abdominal pain near left laparoscopic abdominal site
#Colon cancer with right hemicolectomy June 2022 at [facility] followed by laparoscopic I&D of abscess 07/16/[address] Couch at [facility]
CT abdomen pelvis shows ileus versus enteritis
Resolved
#Alcohol use
Patient reports drinks 2 glasses of wine 3 times a week last drink was 1 week ago
#HTN�benign
-Continue nebivolol
#HLD
#Chronic bronchitis
#Ex-smoker
#Chronic diastolic heart failure
Continue home Lasix
#Hypothyroidism
Continue levothyroxine
Non-Hodgkin's lymphoma
Treated by retired oncologist patient unaware of name
#Iron deficiency anemia
Monitor hemoglobin
DVT prophylaxis�subcu heparin
DNR
Total time spent to see the patient on the floor, examine the patient, review data and lab results, discuss treatment plan with patient, nursing staff around 50 minutes.
Physical Exam
General: No acute distress
HEENT: Normocephalic, Atraumatic, EOMI, MMM
Respiratory: Clear to Auscultation bilaterally
Cardiac: Normal S1/S2, irregularly irregular
GI: Soft, Nontender, Nondistended, Normal Bowel Sounds
Extremities: No Clubbing, Cyanosis, or Edema
Neuro: Nonfocal/Grossly Intact
Psych: Anxious, teary-eyed
Anticipated Discharge: Within 24 hours
Subjective/Interval History
-
Date of Service: April 04, 2024
Patient denies chest pain, shortness of breath, or palpitations. No abdominal pain. She tolerated her diet. No fever, no vomiting. She did not sleep well last night.
Objective Data
-
Labs:
Laboratory Results
04/04/24
06:18
WBC 5.3
Hgb 13.0
Hct 38.0
Plt Count 260
Sodium 141
Potassium 3.7
Chloride 101
Carbon Dioxide 33 H
BUN 16
Creatinine 0.9
Glucose 94
Calcium 9.7
Total Bilirubin 0.9
AST 25
ALT 18
Alkaline Phosphatase 82
Vital Signs:
Vital Signs
Temp Pulse Resp BP Pulse Ox
97.8 F 68 17 124/71 95
04/04/24 07:45 04/04/24 07:45 04/04/24 07:45 04/04/24 07:45 04/04/24 07:45
[2024-04-04] MEDS: DULCOLAX 15 MG PO (09:18)
[2024-04-04] MEDS: VITAMIN D3 (cholecalciferol) 25 MCG PO (09:18)
[2024-04-04] MEDS: LASIX 40 MG PO (09:18)
[2024-04-04] MEDS: BYSTOLIC 10 MG PO (09:19)
[2024-04-04] MEDS: DETROL LA 4 MG PO (09:19)
[2024-04-04] MEDS: ASPIR LOW (ENTERIC COATED) 81 MG PO (09:20)
--- NOTE | 2024-04-04 12:47 | CON.CAR ---
Addendum entered and electronically signed by Pk Echavarria MD 04/04/24 17:04:
I saw and examined the patient.
The EDGE GLUER or PA's note was reviewed and I agree with the note.
Comment: General: Well developed, well nourished in NAD.
Neck: Supple, no JVD, HJR, carotids +2 B/L, no bruits bilaterally.
Heart: Non displaced PMI, irregular, 2/6 basal systolic murmur, No S3, S4, no rubs.
Lungs: Clear to auscultation bilaterally, no wheeze, rhonchi, rubs bilaterally,
normal expiratory phase.
Abdomen: Normal bowel sounds, soft, non-tender, non-distended.
Extremities: No clubbing, cyanosis or edema bilaterally.
Neuro: Grossly nonfocal, awake, alert and oriented x3.
Adam has a history of severe aortic stenosis, chronic diastolic CHF, non-Hodgkin's lymphoma treated with chemotherapy, hypertension, hypothyroidism, anxiety/depression. She has been noncompliant with workup for TAVR. She presented to the ER with
anxiety and found to be in A-fib.
Rate is well-controlled in A-fib on Bystolic. Will start Eliquis. Would not attempt to get into sinus rhythm until aortic stenosis has been treated. Will discuss with TAVR team regarding completing workup including CAT scan. Possible discharge
from cardiology viewpoint on 04/05.
Original Note:
Consultation
Consultation Request
Date/Time Consultation Requested: 04/03/24 at 2240
Date/Time Consultation Performed: 04/04/24 at 1030
Requesting Provider: Dr. Hayes
Performing Provider: Dr. Echavarria
Reason for Consultation: Newly diagnosed Afib
Medical History
-
History of Present Illness:
[facility] with [facility] and was found to be in new Afib and was admitted with a consultation to cardiology. Patient with a h/o that worsened to severe as discovered by echo during her 12/2023 admission for acute HF. Patient was
seen by cardiology office for follow up and was agreeable to TAVR eval. Patient then no-showed to a scheduled TAVR CT scan, she also failed to answer her phone or return any of the calls made to her. She then no-showed to a Ct surgery appointment.
Patient is currently scheduled to see Dr. Yolanda Espinosa in the office 04/11/24, but came [facility] last night with complaints of insomnia and SOB. Patient was found to be in new rate controlled Afib, but denied palpitations. No known h/o Afib.
PMH:
Chronic HFpEF
Severe
h/o Non-Hodgkin lymphoma treated with chemotherapy
h/o colon mass/cancer s/p right colectomy at [facility] and then came to for post-op complications 06/2022
Hypertension
Hypothyroidism
Iron deficiency anemia
Hemorrhoids / Chronic Constipation
Anxiety / Depression
Hyperlipidemia
Past Medical History
Past Medical History: Other (in HPI)
Past Surgical History: Bowel Resection (right colectomy 06/2022)
Social History
Tobacco: Former Smoker
Alcohol: Occasional
Drug: None
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
Living: Alone
Family History
Family History: Cancer
Allergies / Home Medications
Allergy/AdvReac Type Severity Reaction Status Date / Time
No Known Allergies Allergy Verified 04/03/24 16:17
�Medication �Instructions �Recorded �Confirmed �Type
levothyroxine 50 mcg tablet 50 mcg PO DAILY Thyroid 10/25/17 04/03/24 History
cholecalciferol (vitamin D3) 25 25 mcg PO DAILY Supplement 04/07/22 04/03/24 History
mcg (1,000 unit) tablet
acetaminophen 325 mg tablet 650 mg PO Q4HPRN PRN mild pain 01/16/24 04/03/24 History
(Tylenol)
solifenacin 10 mg tablet (Vesicare) 10 mg PO DAILY Urinary Issue 01/16/24 04/03/24 History
vitamin E 268 mg (400 unit) capsule 268 mg PO DAILY Supplement 01/16/24 04/03/24 History
aspirin 81 mg tablet,delayed 81 mg PO DAILY #1 tab 02/02/24 04/03/24 Rx
release
bisacodyl 5 mg tablet (Women's 15 mg PO DAILY Constipation 02/02/24 04/03/24 History
Laxative (bisacodyl))
furosemide 40 mg tablet (Lasix) 40 mg PO DAILY #90 tabs 02/02/24 04/03/24 Rx
nebivolol 10 mg tablet 10 mg PO DAILY 02/02/24 04/03/24 History
atorvastatin 20 mg tablet 20 mg PO QPM 04/03/24 04/03/24 History
capsaicin-menthol 0.025 %-1.25 % 2 patch topical DAILYPRN PRN right 04/03/24 04/03/24 History
topical patch (Salonpas arm
(capsaicin-menthol))
eszopiclone 1 mg tablet 1 mg PO HS 04/03/24 04/03/24 History
lidocaine HCl 4 %-benzyl alcohol 1 ea topical BIDPRN PRN right arm 04/03/24 04/03/24 History
10 % topical liquid roll-on and legs
(Salonpas Lidocaine Plus)
tramadol 50 mg tablet 50 mg PO DAILYPRN PRN moderate pain 04/03/24 04/03/24 History
trazodone 50 mg tablet 50 mg PO HS 04/03/24 04/03/24 History
Review of Systems
-
History Source: Patient
All other systems: Negative unless noted
Physical Exam
Vital Signs
Temp Pulse Resp BP Pulse Ox
97.8 F 75 19 96/71 96
04/04/24 10:39 04/04/24 10:39 04/04/24 10:39 04/04/24 10:39 04/04/24 10:39
General: NAD, AAOX3
HEENT: EOMI, MMM
Heart: Irreg irreg, Afib on tele, 08/31 HOLLY
Lungs: CTA B/L without wheeze or rales
Abd: +BS, ND, NT, soft
Ext: No clubbing, cyanosis, lesions or edema B/L
Neuro: nonfocal
Lab Results
04/04/24 06:18
04/04/24 06:18
Troponin I < 0.012 ng/ml 04/03/24 16:36
Uun-[id number]-Zfcxltgelwt Pept 6420 pg/ml 04/03/24 16:36
Impression / Plan
-
PCP: Dr. Khoa Rajan
Cardiology: Requesting Dr. Yolanda Espinosa
Impression:
Newly diagnosed paroxysmal Afib 04/03/24
Chronic HFpEF
Severe
h/o Non-Hodgkin lymphoma treated with chemotherapy
h/o colon mass/cancer s/p right colectomy at [facility] and then came to for post-op complications 06/2022
Hypertension
Hypothyroidism
Iron deficiency anemia
Hemorrhoids / Chronic Constipation
Anxiety / Depression
Hyperlipidemia
Echo 04/08/22: EF 66%, mild MR/TR, mod peak/mean 49/29,
Echo 10/25/17: EF 65-70%, no regional WMA, mild abnormal relaxation, mild with peak/mean 39/21 mmHg and CARMEN 1.6 cm sq, mild aortic regurgitation
Echo 01/17/24: Small LV, mild conc LVH, EF 57%, severe peak/mean 89/44 mmHg, CARMEN 0.8 cm2, mild to moderate aortic regurgitation, mild tricuspid regurgitation PAP 25-30 mmHg. Compared to the previous echo aortic stenosis has progressed from
moderate to severe, no other significant change.
Plan:
-Patient came to [facility] yesterday with anxiety and was found to be in new Afib and was admitted with a consultation to cardiology. Patient with a h/o that worsened to severe as discovered by echo during her 12/2023 admission for acute HF. Patient
was seen by cardiology office for follow up and was agreeable to TAVR eval. Patient then no-showed to a scheduled TAVR CT scan, she also failed to answer her phone or return any of the calls made to her. She then no-showed to a Ct surgery
appointment. Patient is currently scheduled to see Dr. Yolanda Espinosa in the office 04/11/24, but came to [facility] last night with complaints of insomnia and SOB. Patient was found to be in new rate controlled Afib, but denied palpitations. No known
h/o Afib.
-Remains in rate controlled Afib. Cont outpatient dose of nebivolol 10 mg daily. Patient was on Toprol XL 50 mg daily at last office visit 01/24/24, she is not sure when this was changed by her PCP.
-Pending adherence to medications and follow up appointments can consider outpatient CV in the future.
-Patient is agreeable to addition of Eliquis 5 mg BID (age 89, Cre 0.9, wt 67.67 kg). Will ask CM to check on cost, patient thinks she has good Rx coverage most of the time.
-Patient had CT abd/pelvis in ER last night and TT with TAVR clinical field specialist to see if dimensions can be extrapolated and/or if additional CT imaging will be needed for TAVR CT scans that she missed as an outpatient.
-Will also work on rescheduling outpatient CT surgery appointment which she needs as part of TAVR evaluation.
-pro-BNP is 6420 which is lower than previous. No weight gain or edema. CT abd/pelvis with normal lung bases and no evidence of CHF on CXR. Will continue usual dose of Lasix 40 mg PO daily for now.
-Patient is also asking for a letter stating that she needs to break her lease so that she can move into an assisted living facility.
-Patient's daughter no longer talks to her and her son lives 2 hours away. She relies on friends locally for support.
[2024-04-04] MEDS: ATIVAN 0.5 MG PO ×2 (13:42→17:30)
--- NOTE | 2024-04-04 16:06 | W.PN.UPDATE ---
Update Note
Progress Note Update
Reviewed outpatient TAVR evaluation with Ms. Dowell and informed her she has a chest CT scheduled for 04/11 @ 13:00 and an appointment with Dr. Guerrero at 14:00. Prescription and instructions given to patient. Also scheduled her for a CT surgical
consult with Dr. Redd 04/25 @ 10:30. Allowed for and answered questions at bedside. Patient verbalized understanding.
[2024-04-04] MEDS: LIPITOR 20 MG PO (17:30)
[2024-04-04] MEDS: MELATONIN 5 MG PO (20:08)
[2024-04-04] MEDS: ELIQUIS 5 MG PO (20:08)
[2024-04-04] MEDS: DESYREL 50 MG PO (22:57)
[2024-04-04] MEDS: AMBIEN 5 MG PO (22:57)
[2024-04-05 03:03] VITALS: BP 120/72
[2024-04-05 05:57] VITALS: BMI 25.3
[2024-04-05] MEDS: SYNTHROID 50 MCG PO (06:10)
[2024-04-05 07:00] VITALS: BP 117/89
[2024-04-05 08:31] LABS: % Basophils 1.2 % (0-2); % Eosinophils 2.4 % (0-6); % Immature Granulocytes 0.5 % (0-0.5); % Lymphocytes 32.9 % (20.5-51.1); % Monocytes 10.1 % (1.7-9.3); % Neutrophils 52.9 % (42.2-75.2); Absolute Basophils 0.1 10^3/uL (0-0.2); Absolute Eosinophils 0.1 10^3/uL (0-0.7); Absolute Lymphocytes 1.9 10^3/uL (1.2-3.4); Absolute Monocytes 0.6 10^3/uL (0.1-0.6); Absolute Neutrophils 3.1 10^3/uL (1.4-6.5); Hematocrit 38.7 % (37.0-47.0); Hemoglobin 13.3 g/dL (12.0-16.0); Mean Corp Hgb Conc. 34.4 g/dL (33.0-37.0); Mean Corpuscular Hgb 32.8 pg (27.0-31.0); Mean Corpuscular Volume 95.6 fL (81.0-99.0); Mean Platelet Volume 10.7 fL (7.4-10.4); Nucleated Red Blood Cells % 0 %; Platelet Count 261 10^3/uL (130-400); Red Blood Cell Count 4.05 10^6/uL (4.20-5.40); Red Cell Dist. Width 13.8 % (11.5-14.5); White Blood Cell Count 5.9 10^3/uL (4.8-10.8)
--- NOTE | 2024-04-05 08:34 | W.PN.HOSP.TC ---
Today's Communication/Plan
-
Discharge today
Assessment / Plan
Assessment / Plan
HPI: 89-year-old female from home complaining she has not slept for the past 24 hours. She reports she normally takes trazodone 50 mg but took additional 25 mg with no relief. She denies any change in her baseline shortness of breath. She is
however complaining of left-sided periumbilical pain. She is status post colon resection for colon cancer with right hemicolectomy June 2022 at [facility] followed by laparoscopic I&D of abscess 07/16/[address] Couch at [facility].
She never had any follow-up after this she reports. She denies headache, sore throat, fever, chills, chest pain, palpitations, nausea, vomiting, diarrhea, fever, chills.
#New onset A-fib
Status post IV diltiazem
Rate now controlled, continue nebivolol. TSH normal
Medically stable for discharge on Xarelto for anticoagulation
Follow-up with cardiology in the office, CT surgery in the office for TAVR
#Chronic dyspnea secondary to severe aortic stenosis
Patient reports had follow-up next week with Dr. Yolanda Espinosa
Severe symptomatic aortic stenosis with NYHA class II symptoms with most recent echocardiogram from December 2023 showing mean transaortic gradient of 44 mmHg
Cardiology consulted
Cardiac cath 02/02/2024:
1. Non-obstructive coronary artery disease.
2. Elevated right and left-sided filling pressures with normal cardiac output.
3. Severe symptomatic aortic stenosis with NYHA class II symptoms with most recent echocardiogram from December 2023
showing mean transaortic gradient of 44 mmHg.
#Acute on chronic insomnia
#Anxiety
#Bereavement
Continue Ambien 5 mg at bedtime, trazodone 50 mg at bedtime
Started melatonin 5 mg at bedtime - continue upon dc
Recently lost her 3 months ago, ordered Ativan as needed while in the hospital
#Acute abdominal pain near left laparoscopic abdominal site
#Colon cancer with right hemicolectomy June 2022 at [facility] followed by laparoscopic I&D of abscess 07/16/[address] Couch at [facility]
CT abdomen pelvis shows ileus versus enteritis
Resolved
#Alcohol use
Patient reports drinks 2 glasses of wine 3 times a week last drink was 1 week ago
#HTN�benign
-Continue nebivolol
#HLD
#Chronic bronchitis
#Ex-smoker
#Chronic diastolic heart failure
Continue home Lasix
#Hypothyroidism
Continue levothyroxine
Non-Hodgkin's lymphoma
Treated by retired oncologist patient unaware of name
#Iron deficiency anemia
Monitor hemoglobin
DNR
Physical Exam
General: No acute distress
HEENT: Normocephalic, Atraumatic, EOMI, MMM
Respiratory: Clear to Auscultation bilaterally
Cardiac: Normal S1/S2, irregularly irregular
GI: Soft, Nontender, Nondistended, Normal Bowel Sounds
Extremities: No Clubbing, Cyanosis, or Edema
Neuro: Nonfocal/Grossly Intact
Psych: Anxious, teary-eyed
Anticipated Discharge: Today
Subjective/Interval History
-
Date of Service: April 05, 2024
Patient reports feeling better. She slept better last night. No chest pain, shortness of breath, or palpitations. No fever, no vomiting.
Objective Data
-
Labs:
Laboratory Results
04/05/24
07:56
WBC 5.9
Hgb 13.3
Hct 38.7
Plt Count 261
Sodium Pending
Potassium Pending
Chloride Pending
Carbon Dioxide Pending
BUN Pending
Creatinine Pending
Glucose Pending
Calcium Pending
Total Bilirubin Pending
AST Pending
ALT Pending
Alkaline Phosphatase Pending
Vital Signs:
Vital Signs
Temp Pulse Resp BP Pulse Ox
97.5 F 96 14 117/89 97
04/05/24 07:00 04/05/24 07:00 04/05/24 07:00 04/05/24 07:00 04/05/24 07:00
I&O
04/04/24 04/05/24 04/06/24
06:59 06:59 06:59
Intake Total 660 / 660
Balance 660 / 660
[2024-04-05 08:49] LABS: ALT (SGPT) 17 U/L (0-35); AST (SGOT) 26 U/L (14-36); Albumin 4.3 g/dl (3.5-5.0); Alkaline Phosphatase 80 U/L (38-126); Blood Urea Nitrogen 19 mg/dl (7-17); Calcium 9.6 mg/dl (8.4-10.2); Carbon Dioxide 29 mmol/L (22-30); Chloride 103 mmol/L (98-107); Estimated Creatinine Clearance 37 ml/min; Glucose 94 mg/dl (70-99); Potassium 3.6 mmol/L (3.5-5.1); Sodium 142 mmol/L (135-145); Total Protein 6.3 g/dl (6.3-8.2); eGFR > 60.00
[2024-04-05] MEDS: ATIVAN 0.5 MG PO (08:53)
[2024-04-05] MEDS: BYSTOLIC 10 MG PO (08:54)
[2024-04-05] MEDS: ELIQUIS 5 MG PO (08:54)
[2024-04-05] MEDS: DULCOLAX 15 MG PO (08:54)
[2024-04-05] MEDS: ASPIR LOW (ENTERIC COATED) 81 MG PO (08:54)
[2024-04-05] MEDS: VITAMIN D3 (cholecalciferol) 25 MCG PO (08:54)
[2024-04-05] MEDS: DETROL LA 4 MG PO (08:54)
[2024-04-05] MEDS: LASIX 40 MG PO (08:54)
--- NOTE | 2024-04-05 09:21 | CM ---
Addendum entered by Shazia Mcallister 04/05/24 11:53:
Patient seen bedside.
IA completed.
Patient lives alone in an apartment.
Patient ambulates with a cane.
Patient independent prior to admission.
Patient drives.
patient is planning on moving to [facility].
patient denies home care needs.
Friend will transport home.
Xarelto coupon provided and website explained.
IMM completed.
Plan: home no needs.
Original Note:
Asked to check costs for Eliquis 5 mg PO BID.
TC to [employer], per Philipp/, Eliquis is a Tier 3 medication a would require prior authorization.
Form can be obtained at [employer] and faxed to [phone], P# [phone].
Xarelto is covered under plan and would be $47.
TT to Cardiology PA with above information. T
--- NOTE | 2024-04-05 11:11 | W.PN.CARDCBS ---
Addendum entered and electronically signed by Mendoza Hyde MD 04/05/24 13:05:
I saw and examined the patient.
The Aboriginal Education Teacher's note was reviewed and I agree with the note.
Comment:
GEN: No distress, awake, Ox3
HEENT: supple, anicteric, mmm
LUNGS: CTA, no wheezes/rales
CV: Irreg, S1/S2, 1/6 syst LSB, no gallop
ABD: soft, BS+, NT/ND
EXT: No edema
NEURO: Gross non-focal
SKIN: No rash
Plan:
OK for D/C today. Cont rate control for Afib.
Will switch to Xarelto
Cont Nebivolol
Cont to workup TAVR eval. For CT Scan next week.
Original Note:
Today's Communication / Plan
-
Change Eliquis to Xarelto, Xarelto has a better outpatient co-pay
Cont usual dose of nebivolol
Outpatient follow up arranged
Impression / Plan
-
PCP: Dr. Khoa Rajan
Cardiology: Requesting Dr. Yolanda Espinosa
Impression:
Newly diagnosed paroxysmal Afib 04/03/24
Chronic HFpEF
Severe
h/o Non-Hodgkin lymphoma treated with chemotherapy
h/o colon mass/cancer s/p right colectomy at [facility] and then came to for post-op complications 06/2022
Hypertension
Hypothyroidism
Iron deficiency anemia
Hemorrhoids / Chronic Constipation
Anxiety / Depression
Hyperlipidemia
Echo 04/08/22: EF 66%, mild MR/TR, mod peak/mean 49/29,
Echo 10/25/17: EF 65-70%, no regional WMA, mild abnormal relaxation, mild with peak/mean 39/21 mmHg and CARMEN 1.6 cm sq, mild aortic regurgitation
Echo 01/17/24: Small LV, mild conc LVH, EF 57%, severe peak/mean 89/44 mmHg, CARMEN 0.8 cm2, mild to moderate aortic regurgitation, mild tricuspid regurgitation PAP 25-30 mmHg. Compared to the previous echo aortic stenosis has progressed from
moderate to severe, no other significant change.
Plan:
-Remains in rate controlled Afib which is a new diagnosis this admission.
-Cont outpatient dose of nebivolol 10 mg daily. Patient was on Toprol XL 50 mg daily at last office visit 01/24/24, she is not sure when this was changed by her PCP.
-No plans for CV this admission, once patient demonstrates compliance could consider outpatient CV in the future.
-Appreciate help of CM on checking cost of DOAC, Eliquis started overnight, but Xarelto is more affordable so will switch. CrCl is 45 so will start Xarelto 15 mg daily 04/05/24. Rx e-scribed to patient's local pharmacy.
-Patient had CT abd/pelvis in ER 04/03/24 and TT with TAVR clinical immunologist to see if dimensions can be extrapolated, data is incomplete and patient will need to return as an outpatient for TAVR CT chest study next week. Appreciate help of TAVR
clinical immunologist in arranging. and/or if additional CT imaging will be needed for TAVR CT scans that she missed as an outpatient.
-Outpatient CT surgery appt missed by patient weeks ago, appreciate help of CM in rescheduling.
-pro-BNP is 6420 which is lower than previous. No weight gain or edema. CT abd/pelvis with normal lung bases and no evidence of CHF on CXR. Will continue usual dose of Lasix 40 mg PO daily for now.
-Provided patient with a letter stating that she needs assisted living so that she can break her current apartment lease.
-Patient's daughter no longer talks to her and her son lives 2 hours away. She relies on friends locally for support.
-Stable for d/c to home from cardiac standpoint
HPI: Patient came to [facility] yesterday with anxiety and was found to be in new Afib and was admitted with a consultation to cardiology. Patient with a h/o that worsened to severe as discovered by echo during her 12/2023 admission for acute HF.
Patient was seen by cardiology office for follow up and was agreeable to TAVR eval. Patient then no-showed to a scheduled TAVR CT scan, she also failed to answer her phone or return any of the calls made to her. She then no-showed to a Ct surgery
appointment. Patient is currently scheduled to see Dr. Yolanda Espinosa in the office 04/11/24, but came to [facility] last night with complaints of insomnia and SOB. Patient was found to be in new rate controlled Afib, but denied palpitations. No known
h/o Afib.
Progress Note - Technical Support Intern
Subjective
Date of Service: April 05, 2024
She feels well and wants to go home
Objective
Labs:
04/05/24 07:56
04/05/24 07:56
Labs
Hgb 13.3 g/dL (12.0-16.0) 04/05/24 07:56
Hct 38.7 % (37.0-47.0) 04/05/24 07:56
Plt Count 261 10^3/uL (130-400) 04/05/24 07:56
Sodium 142 mmol/L (135-145) 04/05/24 07:56
Potassium 3.6 mmol/L (3.5-5.1) 04/05/24 07:56
BUN 19 mg/dl (7-17) H 04/05/24 07:56
Creatinine 0.9 mg/dL (0.6-1.0) 04/05/24 07:56
Glucose 94 mg/dl (70-99) 04/05/24 07:56
Troponins
04/03/24
16:36
Troponin I < 0.012
Vital Signs and I&O:
Vital Signs
Temp Pulse Resp BP Pulse Ox
97.5 F 96 14 117/89 97
04/05/24 07:00 04/05/24 08:54 04/05/24 07:00 04/05/24 08:54 04/05/24 07:00
Vital Signs
Temp Pulse Resp BP Pulse Ox
97.5 F 96 14 117/89 97
04/05/24 07:00 04/05/24 08:54 04/05/24 07:00 04/05/24 08:54 04/05/24 07:00
Intake & Output
04/03/24 04/04/24 04/05/24 04/06/24
06:59 06:59 06:59 06:59
Intake Total 660 / 660
Balance 660 / 660
Physical Exam
Physical Exam
General: NAD, AAOX3
HEENT: EOMI, MMM
Heart: Irreg irreg, Afib on tele, 2/6 HOLLY
Lungs: CTA B/L without wheeze or rales
Abd: +BS, ND, NT, soft
Ext: No clubbing, cyanosis, lesions or edema B/L
Neuro: nonfocal
[2024-04-05 11:41] VITALS: BP 120/89
--- NOTE | 2024-04-06 14:02 | W.DCSUMMARY ---
Discharge Summary
Discharge Data
Date of Admission: 04/03/24
Date of Discharge: 04/05/24
-
Pending Results: No
Hospital Course
Discharge diagnosis:
New onset atrial fibrillation
Chronic dyspnea
Severe aortic stenosis
Transient abdominal pain
Acute on chronic insomnia
Bereavement
Anxiety
Chronic daily alcohol use
Essential hypertension
Hyperlipidemia
Chronic bronchitis
Chronic diastolic heart failure
Hypothyroidism
Non-Hodgkin's lymphoma
Iron deficiency anemia
History of colon cancer status post right hemicolectomy
Consults: Cardiology
CT abd/pelvis:
1. Findings suggesting mild enteritis/ileus.
01/17/24 Echo:
Left ventricle is small in size. Mild concentric left ventricular hypertrophy.
Normal left ventricular systolic function. Normal regional wall motion. LV
ejection fraction is 57%.
Severe aortic stenosis. Peak/mean gradients across the aortic valve are 89/44
mmHg, the aortic valve area is 0.8 cm2.
Mild to moderate aortic regurgitation.
Mild tricuspid regurgitation. Estimated pulmonary artery pressure of 25-30
mmHg.
Compared to the previous echo aortic stenosis has progressed from moderate to
severe, no other significant change.
Hospital course:
89-year-old female with a past medical history of chronic dyspnea due to severe aortic stenosis, insomnia, anxiety, chronic daily alcohol use, hypertension, hyperlipidemia, CHF, and hypothyroidism presented to the ER with anxiety, was found to have
new onset atrial fibrillation. Patient was seen in conjunction with cardiology. Her rate was controlled on nebivolol. She was initially treated with an IV heparin drip, then transitioned to Eliquis. Her insurance covers Xarelto, and she will be
discharged on Xarelto.
Patient has chronic dyspnea secondary to severe aortic stenosis. She is currently undergoing workup to have a TAVR outpatient.
Patient had transient abdominal pain upon admission. CT of the abdomen and pelvis shows ileus versus enteritis. Her abdominal pain resolved. She tolerated a diet.
Patient is extremely anxious, and has acute on chronic insomnia. She is also in bereavement from the loss of her 3 months ago. She takes Lunesta and trazodone at home for sleep. She was started on melatonin here, which can be continued
upon discharge.
Patient is medically stable and cleared by cardiology for discharge. She needs to follow-up with her primary care doctor in 1 week, cardiology and CT surgery in the office as scheduled.
Disposition: Home self-care
Discharge planning: Required 41 minutes
Discharge Plan
-
Patient Disposition: Home (Routine Discharge)
Discharge Diagnosis/Procedures: New onset atrial fibrillation, aortic stenosis, bereavement, insomnia
Condition: Fair
Diet: Low Fat and Low Cholesterol
Activity: As tolerated
Driving Restrictions: As prior to admission
Others Tests: YOUR CHEST CT SCAN IS SCHEDULED FOR 04/11/2024 @ 1:00 AT [facility]. NOTHING TO EAT OR DRINK [address] YOUR [address] SCAN. PLEASE BRING A LIST OF YOUR MEDICATIONS. YOU MAY TAKE YOUR MORNING MEDICATIONS BEFORE COMING IN.
Activity Restrictions/Additional Instructions:
Please keep your appointment with your family doctor tomorrow, 04/06/2024.
Follow-up with cardiology and CT surgery in the office as scheduled.
Referrals:
Khoa Rajan DO [Family Provider] - in one day
Yolanda Espinosa MD [Active] - 04/11/24 2:00 pm
Isaias Redd MD [Active] - 04/25/24 10:30 am
Prescriptions:
New
Xarelto 15 mg Tablet
15 mg PO QPM Qty: 30 11RF
melatonin 5 mg Tablet
5 mg PO DAILY@2000 Qty: 30 0RF
Continued
levothyroxine 50 MCG tablet
50 mcg PO DAILY
cholecalciferol (vitamin D3) 25 mcg (1,000 unit) Tablet
25 mcg PO DAILY
acetaminophen [Tylenol] 325 mg Tablet
650 mg PO Q4HPRN PRN (Reason: mild pain)
vitamin E 268 mg (400 unit) Capsule
268 mg PO DAILY
solifenacin [Vesicare] 10 mg Tablet
10 mg PO DAILY
Women's Laxative (bisacodyl) 5 mg Tablet
15 mg PO DAILY
nebivolol 10 mg Tablet
10 mg PO DAILY
aspirin 81 mg tablet,delayed release (DR/EC)
81 mg PO DAILY Qty: 1 0RF
furosemide [Lasix] 40 mg tablet
40 mg PO DAILY Qty: 90 3RF
tramadol 50 mg Tablet
50 mg PO DAILYPRN PRN (Reason: moderate pain)
eszopiclone 1 mg Tablet
1 mg PO HS
Salonpas (capsaicin-menthol) 0.025-1.25 % Adhesive Patch,Medicated
2 patch TOPICAL DAILYPRN PRN (Reason: right arm)
Salonpas Lidocaine Plus 4-10 % Liquid Roll-On
1 ea TOPICAL BIDPRN PRN (Reason: right arm and legs)
atorvastatin 20 mg tablet
20 mg PO QPM
trazodone 50 mg tablet
50 mg PO HS
Patient Comments:
04/03/24: Patient states she was unable to sleep even with increased dosage of trazodone last night.
Discharge Orders:
Discharge Patient (As Directed); Ordered 04/05/24
Ordered By: Emigdio Hayes
Discharge Date and Time
Discharge Date/Time: 04/05/24 13:00
Print Language: GEORGIAN
== END 2024-04-05 13:00 | disposition home or self-care (01) | DRG 309 ==
LOC: 4 WEST ACU 21:23
PROVIDERS: Clinical Nurse Specialist Family Health; Student in an Organized Health Care Education/Training Program; ADMITTING PHYSICIAN Hospitalist; ATTENDING PHYSICIAN Family Medicine; EMERGENCY PHYSICIAN Student in an Organized Health Care Education/Training Program; FAMILY PHYSICIAN Family Medicine Sports Medicine; OTHER PHYSICIAN Internal Medicine Cardiovascular Disease
DX: I48.0 Paroxysmal atrial fibrillation (principal); I50.32 Chronic diastolic (congestive) heart failure; I25.10 Atherosclerotic heart disease of native coronary artery without angina pectoris; Z66 Do not resuscitate; I11.0 Hypertensive heart disease with heart failure; E78.00 Pure hypercholesterolemia, unspecified; E03.9 Hypothyroidism, unspecified; F51.04 Psychophysiologic insomnia; J42 Unspecified chronic bronchitis; I35.2 Nonrheumatic aortic (valve) stenosis with insufficiency; D50.9 Iron deficiency anemia, unspecified; F32.A Depression, unspecified; F41.9 Anxiety disorder, unspecified; R10.9 Unspecified abdominal pain; Z92.21 Personal history of antineoplastic chemotherapy; Z85.038 Personal history of other malignant neoplasm of large intestine; Z90.49 Acquired absence of other specified parts of digestive tract; Z79.890 Hormone replacement therapy; Z79.82 Long term (current) use of aspirin; Z79.899 Other long term (current) drug therapy; Z87.891 Personal history of nicotine dependence; Z85.72 Personal history of non-Hodgkin lymphomas; Z63.4 Disappearance and death of family member; Z91.199 Patient's noncompliance with other medical treatment and regimen due to unspecified reason
CPT/HCPCS: 71046; 74177; 80053; 83880; 84443; 84484; 85025; 93005; 96374; 97116; 97162; 97530; 99285; Q9967

== ENCOUNTER → 2024-04-11 12:59 | Outpatient (REF) | payer OTHER, SELFPAY | LOC: RAD 12:59 | PROVIDERS: ATTENDING PHYSICIAN Nurse Practitioner Acute Care; FAMILY PHYSICIAN Family Medicine Sports Medicine | DX: I35.0 Nonrheumatic aortic (valve) stenosis (principal) | CPT/HCPCS: 75572; Q9967 ==

== ENCOUNTER → 2024-05-02 10:22 | Outpatient (REF) | payer OTHER, SELFPAY ==
[2024-05-02 11:25] LABS: Urine Albumin Negative (Neg - Trace); Urine Bilirubin Negative (Negative); Urine Character Clear (Clear); Urine Color Straw; Urine Glucose Negative (Negative); Urine Ketone Negative (Negative); Urine Leukocyte Negative (Negative); Urine Nitrite Negative (Negative); Urine Occult Blood Negative (Negative); Urine Urobilinogen Negative (Neg - 1+)
== END ==
LOC: RAD 10:22
PROVIDERS: ATTENDING PHYSICIAN Nurse Practitioner Acute Care; FAMILY PHYSICIAN Family Medicine Sports Medicine; OTHER PHYSICIAN Nurse Practitioner Adult Health; REFERRING PHYSICIAN Thoracic Surgery (Cardiothoracic Vascular Surgery)
DX: I10 Essential (primary) hypertension (principal); I35.0 Nonrheumatic aortic (valve) stenosis
CPT/HCPCS: 36415; 70498; 81003; Q9967

== ENCOUNTER 2024-05-11 05:15 | Inpatient (IN) | payer OTHER, SELFPAY ==
[2024-05-08 12:14] VITALS: BMI 27.3
[2024-05-08 13:08] LABS: % Basophils 0.8 % (0-2); % Eosinophils 1.1 % (0-6); % Immature Granulocytes 0.4 % (0-0.5); % Lymphocytes 21.4 % (20.5-51.1); % Neutrophils 71.3 % (42.2-75.2); Absolute Basophils 0.1 10^3/uL (0-0.2); Absolute Eosinophils 0.1 10^3/uL (0-0.7); Absolute Lymphocytes 1.6 10^3/uL (1.2-3.4); Absolute Monocytes 0.4 10^3/uL (0.1-0.6); Absolute Neutrophils 5.3 10^3/uL (1.4-6.5); Hematocrit 39.6 % (37.0-47.0); Hemoglobin 13.9 g/dL (12.0-16.0); Mean Corp Hgb Conc. 35.1 g/dL (33.0-37.0); Mean Corpuscular Hgb 32.1 pg (27.0-31.0); Mean Corpuscular Volume 91.5 fL (81.0-99.0); Mean Platelet Volume 11.5 fL (7.4-10.4); Nucleated Red Blood Cells % 0 %; Platelet Count 257 10^3/uL (130-400); Red Blood Cell Count 4.33 10^6/uL (4.20-5.40); Red Cell Dist. Width 13.2 % (11.5-14.5); White Blood Cell Count 7.4 10^3/uL (4.8-10.8)
[2024-05-08 13:18] LABS: PT 24.3 Sec (11.4-14.6)
[2024-05-08 13:19] LABS: APTT 37.6 Sec (23.4-35.0)
[2024-05-08 13:27] LABS: ALT (SGPT) 25 U/L (0-35); AST (SGOT) 30 U/L (14-36); Albumin 4.8 g/dl (3.5-5.0); Alkaline Phosphatase 80 U/L (38-126); Blood Urea Nitrogen 17 mg/dl (7-17); Calcium 9.7 mg/dl (8.4-10.2); Carbon Dioxide 27 mmol/L (22-30); Chloride 100 mmol/L (98-107); Direct Bilirubin 0.3 mg/dl (0.0-0.4); Estimated Creatinine Clearance 38 ml/min; Glucose 94 mg/dl (70-99); Potassium 4.2 mmol/L (3.5-5.1); Sodium 141 mmol/L (135-145); Total Bilirubin 1.2 mg/dl (0.2-1.3); Total Protein 7.1 g/dl (6.3-8.2); eGFR > 60.00
[2024-05-08 13:35] LABS: NT-proBNP 3550 pg/ml
[2024-05-08 13:51] LABS: Glycohemoglobin (HgbA1c) 5.4 % (4.0-5.6)
[2024-05-11] VITALS (14 sets, daily range): BP systolic 74–154; BP diastolic 53–92; BMI 25.3
--- NOTE | 2024-05-11 06:12 | PTCARENOTE ---
pt admitted into CVICU room 2261. pt confirmed 2 showers at home. pt prepped for TAVR. wiped with CHG. ASA 81mg given. all questions answered. pre-op education provided.
[2024-05-11] MEDS: LOW STRENGTH ASPIRIN 81 MG PO (06:16)
[2024-05-11 08:12] LABS: Urine Albumin Trace (Neg - Trace); Urine Bilirubin Negative (Negative); Urine Character Clear (Clear); Urine Color Yellow; Urine Glucose Negative (Negative); Urine Ketone Negative (Negative); Urine Leukocyte Negative (Negative); Urine Nitrite Negative (Negative); Urine Occult Blood Negative (Negative); Urine Urobilinogen Negative (Neg - 1+); Urine pH 6.5 (5.0-9.0)
--- NOTE | 2024-05-11 08:24 | CM ---
Met with Mrs. Dowell in [facility]. She states prior to admission she resdies alone in a third floor apartment with an elevator. She states prior to admission she ambulates with a single point cane and independent with adls. She states she has a
single point cane at home. She states she has a prescription plan. She states she has friends who are supportive. The discharge plan is to return home with friends support and a home visit by the Transitional Care Nurse when medically stable.
We reviewed pre-op and post-op routines. We reviewed the shower instructions. She has the soap, written instructions and the TAVR Educational Booklet. We also reviewed restrictions including lifting and driving restrictions. We discussed a home
visit by the Transitional Care Nurse. She is agreeable to a home visit. The genesis is for TAVR on , 05/11/24.
--- NOTE | 2024-05-11 08:29 | CM ---
Reviewed chart. Mrs. Dowell is in the operating room today. Prior to admission she resides alone in a third floor apartment with an elevator. Prior to admission she ambulates with a single point cane and independent with adl's. She has a single
point cane at home. She has a prescription plan. She has supportive friends. Medical work-up in progress. The discharge plan is to return home with supportive friends and a home visit by the Transitional Care Nurse when medically stable.
--- NOTE | 2024-05-11 10:19 | W.CVOR.SURPR ---
CVOR Surgeon Immed Pre Op
-
I have examined this patient prior to performance of the scheduled procedure.
The patient's condition is unchanged from the time of the dictated/written History and
Physical and the patient is able to undergo the scheduled procedure.
--- NOTE | 2024-05-11 10:20 | W.IMMPOSTOP ---
Surgical Immed Post Op Note
-
[id number]
STRUCTURAL HEART PROCEDURE NOTE: TAVR
Preoperative Dx:
Severe aortic stenosis (P/M: 89/44, CARMEN 0.8)
Chronic HFpEF
HTN
Hx of non-Hodgkin lymphoma
Hx of colon mass s/p lap right hemicolectomy & I&D of postop infection
Anxiety & depression
AF on Xarelto
Multinodular goiter
Hypothyroidism
Vit D deficiency
Rentinal vein occlusion
Diverticulosis
Osteopenia
Hx of remote PE (1974)
COVID
Daily EtOH
Chronic bronchitis
Postoperative Dx:
Same
Procedures:
1) R [employer]USTER access w/ U/S, tactile, and fluoroscopic guidance, micropuncture technique, 6Fr sheath placement
2) L CFV access w/ U/S and fluoroscopic guidance, micropuncture technique, 6Fr sheath placement
3) L ENGINE[employer]HAUSTER access w/ U/S, tactile, and fluoroscopic guidance, micropuncture technique, 6Fr sheath placement
4) Open exposure & proximal/distal control of R CCA (systemic heparinization)
5) Protection of L coronary system
6) Placement of temporary pacing wire via L CFV access
7) Placement of pigtail catheter in RCC w/ limited aortography & confirmation of co-planar valve deployment angles
8) Access of R CCA w/ 6Fr sheath placement
9) Wire purchase across stenotic AV (AL-1, soft-tip straight wire, extra-stiff)
10) Placement of Hernandez E-sheath in R CCA
11) TRANSCAROTID TAVR w/ placement of 23mm MISHEL 3 valve
12) Completion CHACHO assessment (mean gradient 4mmHg under GA w/ trace PVL)
13) Removal of valve delivery system/Hernandez E-sheath w/ primary repair of R CCA arteriotomy; completion U/S assessment
14) Completion aortography & L coronary angiography
15) Removal of coronary protection wires
16) Temporary pacing wire secured in-situ w/ EP consultation given intermittent pacer dependance
17) Limited angiography of B/L CFAs
18) Removal of L ENGINEER BOOSTER AND EXHAUSTER 6Fr sheath w/ mgmt w/ 6Fr angioseal; manual pressure
19) Removal of R ENGINEER BOOSTER [employer] EXHAUSTER 6Fr sheath w/ mgmt w/ manual pressure (protamine administration)
20) Closure of open R CCA exposure
Cardiac Surgeons:
Isaias Redd M.D.
Mike Bustos M.D.
Throat Cutter:
Rhonda Faustin
Supervisor Dry Cell Assembly:
Mike Levin PJackyAJacky-Paige; closure of R CCA exposure
Anesthesia:
Johny Berumen M.D. - GET/CHACHO
Cath Data:
Start: 0838hrs, Deploy: 0942hrs, End: 1017hrs
FT: 15.2min, mGy: 738.31, DAP: 54.3221, Contrast: 90mL
Post-CHACHO: mean gradient 4mmHg, trace PVL
Complications:
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
Condition:
Stable/guarded to recovery
--- NOTE | 2024-05-11 10:25 | W.PN.UPDATE ---
Update Note
Progress Note Update
Reviewed Ms. Dowell with the heart team in the preTAVR SDM and confirmed a 23mm S3 via (R) Carotid access. She will resume Xarelto post TAVR. #23 mm S3 (serial# [id number]) successfully deployed via (R) carotid access. Post implant MG 4mmHg.
--- NOTE | 2024-05-11 10:45 | ITS.CL.TAVR ---
Composition Molder - TAVR Report
TAVR PRocedure
Procedure Report:
TRANSCATHETER AORTIC VALVE REPLACEMENT
Date of Procedure: May 11, 2024
Referring: Yolanda Mujica MD
Operators: Drs. Rhonda Faustin, Mike Bustos and Isaias Redd
PROCEDURE PERFORMED:
1. Successful placement of 23mm Hernandez Marco A S3 aortic valve via right common carotid approach under general anesthesia with CHACHO guidance 2..
2. Left coronary artery protection in the setting of low left coronary artery height
PREPROCEDURE NYHA CLASS: II
DESCRIPTION OF PROCEDURE: The patient was referred for assessment of severe symptomatic aortic stenosis and following a comprehensive evaluation it was felt that transcatheter aortic valve replacement (TAVR) would be the most appropriate treatment.
Given for bilateral iliofemoral axis, decision was made to move forward with transcatheter aortic valve replacement via right carotid approach under general anesthesia. Informed consent was obtained prior to the procedure. A 'time-out' was called
and the procedural plan was verbally confirmed by anesthesia, surgery, perfusion, and cardiac cath lab manager staff.
Arterial access with 6 [place] sheath was obtained using ultrasound guidance and micropuncture technique in the right common femoral artery. Additionally, arterial and venous access site were obtained in the left common femoral artery and vein using
ultrasound guidance and micropuncture technique. 6 Fr. sheaths were inserted.
A 5 Fr. transvenous pacing wire was advanced to the right ventricle where excellent pacing thresholds were obtained.
A 5 Fr. pigtail catheter was then advanced to the proximal ascending aorta / right aortic cusp where angiography was performed in multiple angles to define the co-planar angle that was most appropriate valve deployment (CANDI 33/cranial 4).
Cutdown was performed by CT surgery at the right carotid site for right carotid artery access. Please review the report for details regarding this. Full anticoagulation was maintained throughout the case with IV unfractionated heparin. Given the
left coronary height was noted to be low by TAVR protocol CT, decision had been made to protect the left coronary artery in case the TAVR valve leads to obstruction. Once additional heparin was given, a 6 [place] JL 4 guide catheter was used to
selectively engage the left coronary artery. A 180 cm 0.014 BMW coronary wire was successfully advanced into the' distal LAD. Through a 6 [place] guide liner, a 3.5 x 18 mm Medtronic Ermias frontier drug-eluting stent was parked and deployed in the
mid LAD. The guide liner was parked in the left main without pressure dampening and the JL guide catheter was pulled back into the ascending aorta.
A 6 [place] sheath was inserted into the right common carotid artery. The AL1 catheter was positioned just above the aortic valve. A 0.035' Straight tip wire probed the aortic valve and crossed the stenotic leaflets. The AL1 was then advanced to
the mid left ventricle. An Amplatz Extra-stiff wire with a generous curved tip was then positioned in the left ventricular apex. Over the stiff wire the 6 [place] sheath was then retracted and the Hernandez E sheath was delivered and positioned in
the ascending aorta. A 23 mm Hernandez Marco A S3 valve was brought to the table and the orientation of the valve on the balloon delivery system was confirmed by all operators. The Marco A S3 valve was advanced through the eSheath and centered on the
delivery balloon. The Marco A S3 delivery system was then advanced across the stenotic valve and the 23 mm Marco A S3 valve was deployed during rapid pacing. The valve deployment was uneventful. The Hernandez balloon and delivery system were then
removed to minimize ischemic time at the right carotid artery.
Transesophageal echocardiographic images post valve deployment revealed minimal aortic insufficiency with excellent position of the aortic prosthesis. Normal left ventricular systolic function was noted with no wall motion abnormalities. An
aortogram confirmed no significant aortic regurgitation and a well-positioned valve. There is nonselective filling into the right coronary artery as well as the left coronary artery. We also confirmed by bringing the JL guide catheter back down
over the guide liner and noted ENIO-3 flow into the left coronary artery and therefore the BMW wire and the un-deployed stent along with the guide liner were retracted out.
Groin shots were taken at both sites in 6 [place] Angio-Seal was used to close the left common femoral artery. Given significant plaque and calcium at the right common femoral arterial site decision was made to perform a manual hold once ACT is
below 180 ms. Given post valve deployment, patient had become dependent on the temporary pacemaker, the transvenous pacemaker with a 6 [place] right common femoral venous sheath were sutured and secured in place.
Fluoro Time: 15.2 min, Dose: 738.3 mGy, DAP : 54.3 Gy.cm2
CONCLUSIONS:
1. Severe symptomatic aortic stenosis. Successful deployment of a 23 mm Marco A S3 valve with minimal aortic insufficiency post procedure via right carotid artery approach.
2. Temporary transvenous pacemaker and 6 [place] right common femoral venous access sheaths sutured and secured in place given underlying heart block post TAVR valve deployment.
Copy to: Yolnada Espinosa MD
Rhonda Faustin MD, FOR[facility]LY [facility], [facility]
--- NOTE | 2024-05-11 11:00 | PTCARENOTE ---
Received pt from labeling strategist. CORONA to 2. No neuro deficits noted. Pt 100% v-paced on monitor. L rad. A-line, zeroed and calibrated. Temporary pacer in L fem. set to 60, L groin sited soft, no ecchymosis noted. + pulses, - edema. Lungs clear,
bilaterally diminished in bases. pt on simple mask, POX 100%. Hypoactive BS. Denny intact, draining clear, yellow urine WNL. Right neck incision, approx, no draining or ecchymosis noted, right groin soft, dressing C/D/I, no ecchymosis noted. Right
PVA intact, no redness or edema noted. Will continue to assess pt needs. Pt resting in bed.
[2024-05-11] MEDS: ANCEF 10 IV ×2 (11:33)
[2024-05-11] MEDS: OFIRMEV 100 IV (11:33)
--- NOTE | 2024-05-11 11:47 | CON.INTV ---
Consultation
Consultation Request
Date/Time Consultation Requested: 05/11/2024-1 PM
Date/Time Consultation Performed: 05/11/2024-1 p.m.
Requesting Provider: Cardiovascular surgery
Performing Provider: Dr. Lund
Reason for Consultation: Postoperative critical care management
Medical History
-
Chief Complaint: Aortic stenosis
History of Present Illness:
89-year-old female with a history of hypertension, pulmonary embolism 1974, non-Hodgkin's lymphoma 2001 who presents with progressive severe aortic stenosis and underwent carotid approach TAVR and bomb squad officer consulted for postoperative critical
care management 05/11/2024. Patient is groggy postoperatively and adequate and reliable review of systems was unobtainable. She has been extubated. She is in no respiratory distress. Operative records were reviewed. Case was discussed with
critical care nursing including drips and labs.
Past Medical History
Past Medical History: None (Hypertension. Severe aortic stenosis. Vitamin D deficiency. Multinodular goiter. Retinal vein occlusion 2007. Osteopenia. PE 1974. Non-Hodgkin's lymphoma 2001. Hypothyroid. Anxiety. Colon mass/colectomy 2021.
Cataract surgery.)
Social History
Tobacco: Former Smoker ([id number] quit many years ago)
Alcohol: None
Drug: None
Personal:
Occupational Exposures: No known asbestos exposure
Environmental Exposures: No known tuberculosis exposure
Family History
Family History: Other (Father-colon cancer. Brother-colon and bladder cancer. Sister-lung cancer.)
Allergies / Home Medications
Allergies
Allergy/AdvReac Type Severity Reaction Status Date / Time
No Known Allergies Allergy Verified 05/05/24 09:07
Home Medications
�Medication �Instructions �Recorded �Confirmed �Last Taken �Type
levothyroxine 50 mcg tablet 50 mcg PO DAILY Thyroid 10/25/17 05/11/24 05/10/24 08:00 History
cholecalciferol (vitamin D3) 25 25 mcg PO DAILY Supplement 04/07/22 05/11/24 05/10/24 08:00 History
mcg (1,000 unit) tablet
acetaminophen 325 mg tablet 650 mg PO Q4HPRN PRN mild pain 01/16/24 05/11/24 04/03/24 History
(Tylenol)
solifenacin 10 mg tablet (Vesicare) 10 mg PO DAILY Urinary Issue 01/16/24 05/11/24 05/10/24 History
vitamin E 268 mg (400 unit) capsule 268 mg PO DAILY Supplement 01/16/24 05/11/24 05/10/24 08:00 History
bisacodyl 5 mg tablet (Women's 15 mg PO DAILY Constipation 02/02/24 05/11/24 05/10/24 History
Laxative (bisacodyl))
furosemide 40 mg tablet (Lasix) 40 mg PO DAILY #90 tabs 02/02/24 05/11/24 05/10/24 08:00 Rx
nebivolol 10 mg tablet 10 mg PO DAILY 02/02/24 05/11/24 05/10/24 08:00 History
atorvastatin 20 mg tablet 20 mg PO QPM 04/03/24 05/11/24 05/09/24 16:00 History
capsaicin-menthol 0.025 %-1.25 % 2 patch topical DAILYPRN PRN right 04/03/24 05/11/24 05/09/24 History
topical patch (Salonpas arm
(capsaicin-menthol))
eszopiclone 1 mg tablet 1 mg PO HS 04/03/24 05/11/24 05/10/24 20:00 History
lidocaine HCl 4 %-benzyl alcohol 1 ea topical BIDPRN PRN right arm 04/03/24 05/11/24 05/09/24 History
10 % topical liquid roll-on and legs
(Salonpas Lidocaine Plus)
tramadol 50 mg tablet 50 mg PO DAILYPRN PRN moderate pain 04/03/24 05/11/24 Unknown History
trazodone 50 mg tablet 50 mg PO HS 04/03/24 05/11/24 04/02/24 History
75 mg
melatonin 5 mg tablet 5 mg PO DAILY@1999 #30 tabs 04/05/24 05/11/24 05/05/24 20:00 Rx
rivaroxaban 15 mg tablet (Xarelto) 15 mg PO QPM Blood clot 04/05/24 05/11/24 05/08/24 08:00 Rx
prevention/tx #30 tabs
gabapentin 100 mg capsule 100 mg PO HS 05/05/24 05/11/24 05/09/24 20:00 History
lorazepam 0.5 mg tablet 0.5 mg PO BID PRN anxiety 05/05/24 05/11/24 05/09/24 20:00 History
Review of Systems
-
Unable to Obtain full review of systems at this time due to: Other (Per HPI)
Vitals / Labs / Diagnostic Testing
Vital Signs
Temp Pulse Resp BP Pulse Ox
96.6 F L 60 19 105/74 95
05/11/24 11:30 05/11/24 11:31 05/11/24 11:31 05/11/24 11:31 05/11/24 11:31
Lab Data
05/08/24 12:58
05/08/24 12:58
Microbiology
05/08/24 12:46 Nose MRSA Screen - Final
No Methicillin Resistant Staphylococcus aureus isolated.
Diagnostic Testing:
Physical Exam
-
Exam:
Well-nourished and well-developed in no apparent distress
HEENT-atraumatic, normocephalic
Neck-supple, no JVD, no bruit
Heart-regular rate and rhythm-no murmurs, rubs or gallops
Chest-clear to auscultation, no wheezes, crackles
Back-no tenderness
Abdomen-soft, nontender, nondistended, no hepatosplenomegaly
Extremities-no cyanosis, clubbing, edema and good peripheral pulses
Integument-intact, no rashes, lesions or ecchymosis
Neurology-alert and oriented, nonfocal motor and sensory exam
Assessment
-
89-year-old female with a history of hypertension, pulmonary embolism 1974, non-Hodgkin's lymphoma 2001 who presents with progressive severe aortic stenosis and underwent carotid approach TAVR and bomb squad officer consulted for postoperative critical
care management 05/11/2024.
Aortic stenosis
Status post TAVR via right common carotid approach-Dr. Faustin, Dr. Bustos, and Dr. Redd 05/11/2024
Conditions present prior to admission:
Hypertension.
Severe aortic stenosis.
Vitamin D deficiency.
Multinodular goiter.
Retinal vein occlusion 2007.
Osteopenia.
PE 1974.
Non-Hodgkin's lymphoma 2001.
Hypothyroid.
Anxiety.
Colon mass/colectomy 2021. Cataract surgery.
Plan
Patient will be closely monitored postoperatively in the cardiovascular intensive care unit
Tolerated extubation
Supplemental oxygen as needed
Incentive spirometry
Nebulizers if needed-currently not bronchospastic-some evidence for COPD on radiographs and this former smoker
Cardiology following-correspondence reviewed
Dr. Espinosa also evaluated patient as she was utilizing ventricular demand pacing for approximately 60 minutes post procedure and might require possible pacemaker implantation
Neurovascular checks continue
Follow hemoglobin
Transfuse if needed
Monitor blood sugar
Insulin supplementation as needed
Patient last saw Dr. Lund in 2018 and had PFTs
Critical care statement: A total of 50 minutes of critical care time was provided for this patient today. This includes management of unstable vital signs, evaluation of the patient at bedside, reviewing the patient's pertinent medical records
including radiographs, microbiology, laboratory evaluations, and discussion with primary team, consultants, critical care nursing, and respiratory therapy.
Diagnostic data:
Chest x-ray 05/08/2024-hyperinflation compatible with COPD/emphysema
CT TAVR are 04/11/2024-small hiatal hernia, chronic left thyroid lobe nodules, mild centrilobular emphysema, no pulmonary nodules
CT angiogram neck 05/02/2024-right carotid artery bifurcation contains moderate calcified plaques approximately 50% stenosis of the right proximal internal carotid artery
Data Reviewed
-
EKG: Report reviewed by me
Radiology: Report reviewed by me
Medical Tests (Nuc Med, Echo etc): Report reviewed by me
Labs: Labs reviewed by me
Old Records: Reviewed
Critical Care Time (in minutes): 50
--- NOTE | 2024-05-11 12:00 | PTCARENOTE ---
Pt in Afib on monitor. Cards notified. Dr. Espinosa and Roxie aware and reviewed monitor. Pt recovered per protocol. Remains drowsy and impulsive. Family at bedside. Groins intact.
[2024-05-11] MEDS: DILAUDID 0.25 MG IV ×2 (12:16→13:12)
--- NOTE | 2024-05-11 12:44 | W.PN.UPDATE ---
Update Note
Progress Note Update
Evaluated Ms. Dowell at the bedside with Dr. Faustin. She has resumed conduction in the 80s and atrial fibrillation. She had a precedent incomplete right bundle branch block. She was utilizing ventricular demand pacing for approximately 60
minutes post procedure. We adjusted the sensitivity on her temporary pacemaker and she is in backup mode 35 bpm and will maintain temporary wire throughout the afternoon. I discussed with Dr. Faustin to consideration of maintaining temporary wire
overnight if there is any need for pacing or if she has a resumption of pacemaker dependency would plan with pacemaker implantation today. Nonetheless she is hemodynamically stable with a heart rate in the 80s and we will continue careful
observation throughout the afternoon. The patient is her own power of tax associate attorney and signed consent and I will have a brief discussion with her regarding possible pacemaker implantation today.
[2024-05-11] MEDS: CARDENE 200 IV (13:52)
[2024-05-11] MEDS: ATIVAN 0.5 MG PO ×2 (15:26→17:15)
--- NOTE | 2024-05-11 16:00 | PTCARENOTE ---
Afib on monitor. Pt remains very anxious. CTPA notified/Dr. Faustin in room. Medication ordered (see Mar). Pt resting in bed. Will continue to assess pt needs.
[2024-05-11] MEDS: TYLENOL 650 MG PO (16:45)
[2024-05-11] MEDS: ANCEF 5 IV (16:46)
--- NOTE | 2024-05-11 20:00 | PTCARENOTE ---
assumed care of pt from previous RN. pt A&Ox4, on bedrest s/p carotid TAVR. temp transvenous pacer via L fem, w/ backup settings VVI 35/10/0.8. a fib on tele-monitor. POX 96-97% on 3 L NC. abd s/n, hypoactive BS. ventura catheter draining clear,
yellow urine. all surgical sites stable, CDI. PIV x2 intact. L radial a-line, leveled, zeroed, flushed. pt c/o anxiety, emotional support provided. see worklist for complete nursing assessment, interventions, VS, and I&Os.
[2024-05-11] MEDS: NEURONTIN 100 MG PO (20:32)
[2024-05-11] MEDS: DESYREL 50 MG PO (20:32)
[2024-05-11] MEDS: MELATONIN 5 MG PO (20:33)
[2024-05-11] MEDS: ULTRAM 50 MG PO (22:39)
[2024-05-11 23:09] LABS: ACT-LR - POC 133 Seconds (116-155)
[2024-05-11 23:09] LABS: ACT-LR - POC 297 Seconds (116-155)
[2024-05-11 23:09] LABS: ACT-LR - POC 345 Seconds (116-155)
[2024-05-11 23:09] LABS: ACT-LR - POC 268 Seconds (116-155)
[2024-05-11 23:09] LABS: ACT-LR - POC 313 Seconds (116-155)
[2024-05-11 23:09] LABS: ACT-LR - POC 313 Seconds (116-155)
[2024-05-12] VITALS (8 sets, daily range): BP systolic 112–141; BP diastolic 68–78; BMI 26.4
--- NOTE | 2024-05-12 | PTCARENOTE ---
assessment remains unchanged. VSS. POX 99% on 3 L NC. U/O >0.5ml/kg/hr.
[2024-05-12] MEDS: TYLENOL 650 MG PO (01:15)
--- NOTE | 2024-05-12 04:15 | PTCARENOTE ---
assessment remains unchanged. VSS. AM labs collected and sent. U/O >0.5ml/kg/h.
[2024-05-12 05:07] LABS: Blood Urea Nitrogen 15 mg/dl (7-17); Calcium 8.7 mg/dl (8.4-10.2); Carbon Dioxide 27 mmol/L (22-30); Chloride 103 mmol/L (98-107); Estimated Creatinine Clearance 47 ml/min; Glucose 119 mg/dl (70-99); Sodium 139 mmol/L (135-145); eGFR > 60.00
[2024-05-12 05:12] LABS: Hematocrit 32.3 % (37.0-47.0); Hemoglobin 11.2 g/dL (12.0-16.0); Mean Corp Hgb Conc. 34.7 g/dL (33.0-37.0); Mean Corpuscular Hgb 32.7 pg (27.0-31.0); Mean Corpuscular Volume 94.4 fL (81.0-99.0); Mean Platelet Volume 11.5 fL (7.4-10.4); Platelet Count 197 10^3/uL (130-400); Red Blood Cell Count 3.42 10^6/uL (4.20-5.40); Red Cell Dist. Width 12.9 % (11.5-14.5); White Blood Cell Count 10.9 10^3/uL (4.8-10.8)
[2024-05-12] MEDS: SYNTHROID 50 MCG PO (06:00)
--- NOTE | 2024-05-12 06:07 | W.PN.CT ---
Today's Communication / Plan
-
-pod #1
-no significant issues overnight.
-in a-fib 80s-90s overnight, no mohan or pause. on Xarelto preop
-pre-existing RBBB
-temp pw in place. Held Bystolic
-Echo today
-current meds: Lipitor, Lasix, Trazodone, Neurontin
-encourage IS, OOB
Assessment / Plan
-
- Severe symptomatic - s/p TRANSCAROTID TAVR w/ placement of 23mm MISHEL 3 valve on 05/11/24, pod #1
- Post-CHACHO: mean gradient 4mmHg, trace PVL
- New BBB w/ just wire purchase across stenotic AV; Intermittent pacer dependence following TAVR valve deployment - temporary pacing wire in L groin
- Chronic diastolic CHF
- HTN
- Hx of non-Hodgkin lymphoma- s/p chemo
- Hx of colon mass -s/p lap right hemicolectomy & I&D of postop infection
- Anxiety & depression
- Paroxysmal a-fib - on Xarelto preop
- Multinodular goiter
- Hypothyroidism
- Vit D deficiency
- Retinal vein occlusion
- Diverticulosis
- Osteopenia
- Hx of remote PE (1974)
- COVID
- Daily EtOH
- Chronic bronchitis
Discussed patient care with: Nursing and Care Team
Subjective
Procedure
- s/p TRANSCAROTID TAVR w/ placement of 23mm MISHEL 3 valve on 05/11/24
-
Date of Service: May 11, 2024
Objective Data
-
Lab Results
05/08/24 12:58
05/08/24 12:58
PT 24.3 Sec (11.4-14.6) H 05/08/24 12:58
INR 2.20 05/08/24 12:58
APTT 37.6 Sec (23.4-35.0) H 05/08/24 12:58
Vital Signs
Vital Signs
Temp Pulse Resp BP Pulse Ox
98.1 F 94 16 120/71 97
05/11/24 22:00 05/11/24 22:00 05/11/24 22:00 05/11/24 20:00 05/11/24 22:00
CT Intake/Output/Weight
05/11/24 05/11/24 05/12/24
06:59 18:59 06:59
Intake Total 642.5 / 800.0 157.5 / 800.0
Output Total 505 / 1025 520 / 1025
Balance 137.5 / -225.0 -362.5 / -225.0
SaO2: 97
Physical Exam
-
General: Awake and AOx3
Cardiovascular: Irregular rate & rhythm, No Murmurs and No Rub
Respiratory: Clear and Decreased Breath Sounds
Incision: Other (groins are cdi, soft, nontender, no hematoma b/l. L groin with temp pacing wire)
Extremities: Other (trace edema b/l, 1+ DPs b/l)
Data Reviewed
-
Lab Results: Results Reviewed
Medications: Active Meds Reviewed
Chest X-Ray: Report Reviewed and Image Reviewed
ECG: Report Reviewed and Image Reviewed
--- NOTE | 2024-05-12 07:56 | W.PN.INTV ---
Today's Communication / Plan
Recommendations
Tolerated extubation
Wean FiO2
Temporary pacer wire in place per surgery and cardiology
Echocardiogram pending
If transferred to telemetry then senior safety management consultant will sign off
Assessment
-
89-year-old female with a history of hypertension, pulmonary embolism 1974, non-Hodgkin's lymphoma 2001 who presents with progressive severe aortic stenosis and underwent carotid approach TAVR and senior safety management consultant consulted for postoperative critical
care management 05/11/2024.
Aortic stenosis
Status post TAVR via right common carotid approach-Dr. Faustin, Dr. Bustos, and Dr. Redd 05/11/2024
Conditions present prior to admission:
Hypertension.
Severe aortic stenosis.
Vitamin D deficiency.
Multinodular goiter.
Retinal vein occlusion 2007.
Osteopenia.
PE 1974.
Non-Hodgkin's lymphoma 2001.
Hypothyroid.
Anxiety.
Colon mass/colectomy 2021. Cataract surgery.
Plan
Hemodynamically stable
Tolerated extubation
Supplemental oxygen as needed
Incentive spirometry
Nebulizers if needed-currently not bronchospastic-some evidence for COPD on radiographs and this former smoker
Cardiology following-correspondence reviewed
Dr. Espinosa also evaluated patient as she was utilizing ventricular demand pacing for approximately 60 minutes post procedure and might require possible pacemaker implantation
Neurovascular checks continue
Follow hemoglobin
Transfuse if needed
Monitor blood sugar
Insulin supplementation as needed
If patient transferred to telemetry-senior safety management consultant will sign off-please call with pulmonary questions
Patient last saw Dr. Lund in 2018 and had PFTs
Reviewed the patient's pertinent medical records including radiographs, microbiology, laboratory evaluations, and discussion with primary team, consultants, critical care nursing, and respiratory therapy.
Diagnostic data:
Chest x-ray 05/08/2024-hyperinflation compatible with COPD/emphysema
CT TAVR are 04/11/2024-small hiatal hernia, chronic left thyroid lobe nodules, mild centrilobular emphysema, no pulmonary nodules
CT angiogram neck 05/02/2024-right carotid artery bifurcation contains moderate calcified plaques approximately 50% stenosis of the right proximal internal carotid artery
Subjective Dataa
Subjective Data
Date of Service:
Date of Service: May 12, 2024
Chief Complaint: Power Generation Technician Follow Up, Pulmonary Follow Up and Vent Management Follow Up
Subjective:
Feels well, no complaints of shortness of breath, chest pain or abdominal pain
Review of Systems
General: Other ( Per HPI)
Objective Data
Data Reviewed
Vital Signs / I&O / Oxygen:
Vital Signs
Temp Pulse Resp BP Pulse Ox
97.6 F 101 11 112/70 98
05/12/24 06:00 05/12/24 06:30 05/12/24 06:30 05/12/24 04:00 05/12/24 06:30
Intake and Output
05/11/24 05/12/24 05/13/24
06:59 06:59 06:59
Intake Total 1077.5 / 1077.5
Output Total 1615 / 1615
Balance -537.5 / -537.5
SaO2 98
Nasal Cannula flow liters per 2
minute
Physical Exam
General: Respiratory Distress (n) and Comfortable
HEENT: Normocephalic, Anicteric and Moist Mucous Membranes
Cardiovascular: Irregular Rhythm and Murmur
Respiratory: Wheeze (n), Crackles (n), Rhonchi (n), Non-Labored Respirations and Accessory Resp Muscle Use (n)
GI: Soft, Non Distended and Non Tender
Neurology: Awake, Alert and No Motor Deficits
Skin: Warm, Good Color, Cyanosis (n), Jaundice (n) and Rash (n)
Labs/Micro/Reports
Lab Data
05/12/24 04:12
05/12/24 04:12
Microbiology
05/08/24 12:46 Nose MRSA Screen - Final
No Methicillin Resistant Staphylococcus aureus isolated.
[2024-05-12] MEDS: VITAMIN D3 (cholecalciferol) 25 MCG PO (08:09)
[2024-05-12] MEDS: LASIX 40 MG PO (08:09)
--- NOTE | 2024-05-12 08:40 | W.PN.UPDATE ---
Update Note
Progress Note Update
Rhythm star heart monitor given to patient. Explained how to apply, charge and return at the end of the 14 day period. Allowed for and answered questions. Verbalized understanding. RN notified.
--- NOTE | 2024-05-12 09:22 | PTCARENOTE ---
Rec'd pt this shift in bed. Confused to time and place. Pt denies pain, denies sob. pt with left radial tommy and left femoral sheath with temp pacer wire in place. Pt A-fib on monitor. Pt on 2 l n/c oxygen. Pulse ox 97%. Epicardial wire d/c'd by
ABY Perez. See worklist for VS/I and O and assessments.
--- NOTE | 2024-05-12 09:41 | W.PN.CARDCBS ---
Addendum entered and electronically signed by Rhonda Faustin MD 05/12/24 12:42:
I saw and examined the patient.
The Peanut Salter's note was reviewed and I agree with the note.
Comment: Patient did well overnight. No further pacemaker dependence through the temporary transvenous pacemaker. In rate controlled atrial fibrillation overnight. No significant complaints this morning. Groin sites are stable as is the right
carotid site.
Vital signs and lab work reviewed. On exam patient is awake, alert and oriented x 3, irregularly irregular heart rhythm, normal S1 and S2, no murmurs, rubs or gallops, lungs are clear to auscultation anteriorly, abdomen is soft, nontender,
nondistended with active bowel sounds, warm extremities, bilateral groin sites with dressing in place which are clean, dry and intact without evidence of hematoma or bruit. Right carotid site is dressed.
Recommendations:
1. As discussed with CT surgery, the left common femoral venous sheath was taken out along with temporary transvenous pacemaker. Bedrest per protocol.
2. Close monitoring of heart rates while in atrial fibrillation as we are holding Bystolic.
3. If heart rates continue to remain less than 110 bpm in atrial fibrillation at rest, plan to hold AV aliyah blockers for 1 week and reassess as an outpatient as she will be set up for a heart monitor upon discharge given transient heart block post
TAVR.
4. If heart rates at rest elevated more than 110 bpm in atrial fibrillation, consider starting low-dose beta-cm like Toprol-XL 12.5 mg (hold home Bystolic) and monitor on telemetry an additional night prior to discharge to make sure no further
evidence of AV block.
5. If continues to remain stable through the day plan to resume Xarelto starting this evening.
6. Postop day 1 echocardiogram will be completed this morning, pending
Depending on heart rate and heart rhythm, potential discharge in the next 24 to 48 hours.
Original Note:
Today's Communication / Plan
-
in rate controlled afib - follow HRs
OAC resuming tonight
plan for cardiac monitoring upon DC
echo today
Impression / Plan
-
Primary Fountain Helper: Dr. Yolanda Espinosa
Assessment:
-Severe symptomatic s/p TRANSCAROTID TAVR 23mm MISHEL 3 valve on 05/11/24
-New BBB w/ just wire purchase across stenotic AV; Intermittent pacer dependence following TAVR valve deployment - temporary pacing wire in L groin
-Paroxysmal a-fib
-chronic OAC with Xarelto
-pre-existing incomplete RBBB
-Chronic diastolic CHF
-HTN
-Hx of Non-Hodgkin lymphoma s/p chemo
-Hx of adenocarcinoma of colon s/p lap R hemicolectomy at [facility] [address] [facility], evacuation of abd wall abscess at
-Hepatic lesion with concern for metastasis of above
-Anxiety/depression
-Multinodular goiter
-Hypothyroidism
-Vit D deficiency
-Hx of retinal vein occlusion
-Hx of remote PE (1974)
-Daily EtOH
-Chronic bronchitis
-Mild memory loss
ECHO 01/17/24: EF 57%, mild cLVH, severe with peak/mean gradients 89/44mmHg, CARMEN 0.8cm2, mild TR, PAP 25-30mmHg
Plan:
-s/p transcarotid TAVR 05/11
-She has known incomplete RBBB prior to procedure. was noted to have transient new left bundle branch block with just wire purchase across stenotic AV and transient pacemaker dependence immediately after TAVR deployment. now improved, in rate
controlled afib on review of tele without mohan/pauses. holding OP bystolic. follow HR trends overnight - if elevated consider addition of low dose toprol in AM for DC. planned for rhythm star monitor upon DC. temp pacer wire pulled this AM
-echo today pending
-tentatively plan to resume xarelto tonight. hgb 11.2
-CXR 05/12 without effusions or PTX. wean supp O2 as able. continue po lasix
-OOB/IS as able
-OP cardiac follow up arranged
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
Progress Note - Fountain Helper
Subjective
Date of Service: May 12, 2024
denies pain, difficulty breathing, palpitations
Objective
Labs:
05/12/24 04:12
05/12/24 04:12
Labs
Hgb 11.2 g/dL (12.0-16.0) L 05/12/24 04:12
Hct 32.3 % (37.0-47.0) L 05/12/24 04:12
Plt Count 197 10^3/uL (130-400) D 05/12/24 04:12
PT 24.3 Sec (11.4-14.6) H 05/08/24 12:58
INR 2.20 05/08/24 12:58
APTT 37.6 Sec (23.4-35.0) H 05/08/24 12:58
Sodium 139 mmol/L (135-145) 05/12/24 04:12
Potassium 4.0 mmol/L (3.5-5.1) 05/12/24 04:12
BUN 15 mg/dl (7-17) 05/12/24 04:12
Creatinine 0.7 mg/dL (0.6-1.0) 05/12/24 04:12
Glucose 119 mg/dl (70-99) H 05/12/24 04:12
Vital Signs and I&O:
Vital Signs
Temp Pulse Resp BP Pulse Ox
97.9 F 86 16 130/72 97
05/12/24 08:50 05/12/24 09:35 05/12/24 09:35 05/12/24 08:09 05/12/24 09:35
Vital Signs
Temp Pulse Resp BP Pulse Ox
97.9 F 86 16 130/72 97
05/12/24 08:50 05/12/24 09:35 05/12/24 09:35 05/12/24 08:09 05/12/24 09:35
Intake & Output
05/10/24 05/11/24 05/12/24 05/13/24
07:59 07:59 07:59 07:59
Intake Total 1077.5 / 1077.5 530 / 530
Output Total 1615 / 1615 100 / 100
Balance -537.5 / -537.5 430 / 430
Physical Exam
Physical Exam
GEN: No distress, awake, alert, oriented x3. on supp O2
HEENT: supple, anicteric, mmm, eomi
LUNGS: CTA B/L, no wheezes/rales
CV: Irreg, S1/S2, no murmur
ABD: soft, BS+, NT/ND
EXT: No cyanosis, clubbing, edema. missing thumb on L hand
NEURO: Gross non-focal
SKIN: Warm, pink, dry. No rash. L groin site with temp wire pulled. R groin site soft, NTTP, dressing c/d/i
[2024-05-12] MEDS: ATIVAN 0.5 MG PO ×2 (09:55→20:24)
--- NOTE | 2024-05-12 11:06 | W.PN.ANS.POP ---
Anesthesia Post Operative
- Anesthesia Post Op Note
Vital Signs Stable-See Nursing Note: Yes
Airway Patent: Yes
Adequate Pain Control: Yes
Change in Mental Status: No
Current Postoperative Nausea & Vomiting: No
Anesthesia Complications: No
General Anesthetic Recall: No
Unplanned Admission: No
Post Op Hydration Adequate: Yes
--- NOTE | 2024-05-12 11:24 | CM ---
Reviewed chart. Met with Mrs. Dowell to review discharge plan. She states she is feeling well. We reviewed a home visit by the Transitional Care Nurse. She is agreeable to a home visit. Will need to see his current functional level to see if
she will have any skilled needs. Prior to admission she resides alone in a third floor apartment with an elevator. Prior to admission she ambulates with a single point cane. She is independent with ADL's, She has a single point cane at home. She
has a prescription plan. She has supportive friends. Medical work-up in progress. The discharge plan is to return home with her supportive friends and a home visit by the Transitional Care Nurse when medically stable.
[2024-05-12] MEDS: NORVASC 5 MG PO (14:04)
[2024-05-12] MEDS: DULCOLAX 15 MG PO (14:05)
--- NOTE | 2024-05-12 14:30 | PTCARENOTE ---
Left radial tommy d/c'd. ventura cath d/c'd. Pt OOB up in chair to bedside commode. Pt returned back to bed for a rest. Rt and left groin dsgs intact, no bleeding, no hematoma noted.
--- NOTE | 2024-05-12 17:36 | PTCARENOTE ---
Bed alarm and chair alarm on patient due to patient attempting to get up oob by herself, also video monitoring in place for safety precautions.
[2024-05-12] MEDS: LIPITOR 20 MG PO (17:44)
--- NOTE | 2024-05-12 19:52 | PTCARENOTE ---
Pt received from outgoing RN, Pt aaox3, disoriented to time, follow commands, appropriate behavior, easily reoriented as needed. OOB in chair ambulate with WR, afib, VSS, RA, IS 750-1000ml, no c/o pain, VPO system in room for close observation, fall
risk, bed alarm and chair alarm set up as needed.
[2024-05-12] MEDS: XARELTO 15 MG PO (20:24)
[2024-05-12] MEDS: NEURONTIN 100 MG PO (20:24)
[2024-05-12] MEDS: MELATONIN 5 MG PO (20:24)
[2024-05-12] MEDS: DESYREL 50 MG PO (20:24)
[2024-05-13 00:21] VITALS: BP 150/75
--- NOTE | 2024-05-13 00:25 | PTCARENOTE ---
pt reassessment unchanged from previous, vss, continue to reorient pt as needed, ra, oob with rw, tele sitter in room, bed alarm on when in bed.
[2024-05-13 04:46] VITALS: BP 136/81
--- NOTE | 2024-05-13 04:46 | PTCARENOTE ---
pt reassessment unchanged from previous, vss, afib, ra, PIV x2, bed alarm, med sitter in room
[2024-05-13 06:00] VITALS: BMI 25.4
[2024-05-13] MEDS: SYNTHROID 50 MCG PO (06:15)
--- NOTE | 2024-05-13 06:20 | PTCARENOTE ---
pt refusing AM labs, multiple attempts by RN. RN discussed with PA will hold off till later today to collect AM labs.
--- NOTE | 2024-05-13 06:53 | W.PN.CT ---
Addendum entered and electronically signed by Isaias Redd MD 05/13/24 08:48:
I saw and examined the patient.
The PA's note was reviewed and I agree with the note.
Comment:
OK for D/C today
RhythmStar monitoring
ECHO w/ P/M 04/02, no AI/PVL
Xarelto
Original Note:
Today's Communication / Plan
-
-pod #2
-no issues overnight
-remains in a-fib 80s-90s while sleeping and 100s-110s awake. No mohan or pause
-Echo 05/12: well functioning AV. Peak/mean gradients across the valve are 13/7 mmHg. No aortic regurgitation is seen.
-holding Bystolic. Continue Norvasc for HTN
-diuresed 1949 with 40 po Lasix on 05/12
-Rhythm Star monitor at discharge
-possible d/c
Assessment / Plan
-
- Severe symptomatic - s/p TRANSCAROTID TAVR w/ placement of 23mm CHINTAN 3 valve on 05/11/24, pod #2
- Post-CHACHO: mean gradient 4mmHg, trace PVL
- New BBB w/ just wire purchase across stenotic AV; Intermittent pacer dependence following TAVR valve deployment - temporary pacing wire in L groin dcd on 05/12/24
- Chronic diastolic CHF
- HTN
- Hx of non-Hodgkin lymphoma- s/p chemo
- Hx of colon mass -s/p lap right hemicolectomy & I&D of postop infection
- Anxiety & depression
- Paroxysmal a-fib - on Xarelto preop
- Multinodular goiter
- Hypothyroidism
- Vit D deficiency
- Retinal vein occlusion
- Diverticulosis
- Osteopenia
- Hx of remote PE (1974)
- COVID
- Daily EtOH
- Chronic bronchitis
Echo 05/12/24:
Left ventricle is small in size. Mild concentric left ventricular hypertrophy. Normal left ventricular systolic function.
Left ventricular ejection fraction is 57% by Arora's biplane method of discs. Diastolic function indeterminate due to atrial fibrillation.
S/p 23 mm Hernandez chintan S3 TAVR is seated well and functioning normally. Peak/mean gradients across the valve are 13/7 mmHg. No aortic regurgitation is seen.
Tricuspid valve opens normally. Mild to moderate tricuspid regurgitation.
Estimated pulmonary artery pressure of 42 mmHg, assuming a right atrial pressure of 8 mmHg.
Pulmonic valve opens normally.
Trivial pericardial effusion.
Discussed patient care with: Nursing and Care Team
Subjective
Procedure
- s/p TRANSCAROTID TAVR w/ placement of 23mm CHINTAN 3 valve on 05/11/24
-
Date of Service: May 13, 2024
Objective Data
-
PT 24.3 Sec (11.4-14.6) H 05/08/24 12:58
INR 2.20 05/08/24 12:58
APTT 37.6 Sec (23.4-35.0) H 05/08/24 12:58
Vital Signs
Vital Signs
Temp Pulse Resp BP Pulse Ox
97.9 F 103 16 150/75 94
05/13/24 00:21 05/13/24 00:21 05/13/24 00:21 05/13/24 00:21 05/13/24 00:21
CT Intake/Output/Weight
05/12/24 05/12/24 05/13/24
06:59 18:59 06:59
Intake Total 435.0 / 1077.5 1080 / 1080
Output Total 1110 / 1615 1950 / 2200 250 / 2200
Balance -675.0 / -537.5 -870 / -1120 -250 / -1120
SaO2: 94
Physical Exam
-
General: Awake and AOx3
Cardiovascular: Regular rate & rhythm, Irregular rate & rhythm, No Murmurs and No Rub
Respiratory: Decreased Breath Sounds
Sternum: Stable
Incision: Clean, Dry and Intact (b/l groin incisions and R carotid are cdi, soft, nontender, no hematoma )
Extremities: Other (trace edema b/l)
Data Reviewed
-
Lab Results: Results Reviewed
Medications: Active Meds Reviewed
Chest X-Ray: Report Reviewed and Image Reviewed
ECG: Report Reviewed and Image Reviewed
[2024-05-13 08:00] VITALS: BP 137/67
--- NOTE | 2024-05-13 08:35 | W.PN.CARDCBS ---
Today's Communication / Plan
-
AF 90-120 bpm, no pauses on telemetry -> Hold bystolic for 1 week as recommended and reassess as OP
Rhythmstar MCT in place
Stable on OAC, AM labs pending
Stable for DC from CV standpoint pending above
Impression / Plan
-
Primary Tank Welder: Dr. Yolanda Espinosa
.
Assessment:
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
-New BBB w/ just wire purchase across stenotic AV; Intermittent pacer dependence following TAVR valve deployment - temporary pacing wire in L groin
-Paroxysmal a-fib ; HR 90-120 on telemetry
-chronic OAC with Xarelto
-pre-existing incomplete RBBB
-Chronic diastolic CHF
-HTN
-Hx of Non-Hodgkin lymphoma s/p chemo
-Hx of adenocarcinoma of colon s/p lap R hemicolectomy at [facility], evacuation of abd wall abscess at
-Hepatic lesion with concern for metastasis of above
-Anxiety/depression
-Multinodular goiter
-Hypothyroidism
-Vit D deficiency
-Hx of retinal vein occlusion
-Hx of remote PE (1974)
-Daily EtOH
-Chronic bronchitis
-Mild memory loss
ECHO 01/17/24: EF 57%, mild cLVH, severe with peak/mean gradients 89/44mmHg, CARMEN 0.8cm2, mild TR, PAP 25-30mmHg
ECHO 05/12/24: EF 57%, mild LVG s/p 23 mm Hernandez Marco A S3 TAVR, 13/7 mmHg, mild to mod TR, PASP 42 mmHg
Plan:
-s/p transcarotid TAVR 05/11
-She has known incomplete RBBB prior to procedure. was noted to have transient new left bundle branch block with just wire purchase across stenotic AV and transient pacemaker dependence immediately after TAVR deployment. now improved, in rate
controlled afib on review of tele without mohan/pauses. holding OP bystolic. follow HR trends overnight - continue to hold bystolic for 1 week; rhythmstar MCT placed 05/12.
-On xarelto 05/12 PM. hgb 11.2, monitor
-CXR 05/12 without effusions or PTX. wean supp O2 as able. continue po lasix
-OOB/IS as able
-OP cardiac follow up arranged
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
Progress Note - Tank Welder
Subjective
Date of Service: May 13, 2024
Patient seen and examined. No acute events overnight. Patient resting comfortably, no complaints. Tele AF 90-120 bpm, no pauses.
Objective
Labs:
Labs
Hgb 11.2 g/dL (12.0-16.0) L 05/12/24 04:12
Hct 32.3 % (37.0-47.0) L 05/12/24 04:12
Plt Count 197 10^3/uL (130-400) D 05/12/24 04:12
PT 24.3 Sec (11.4-14.6) H 05/08/24 12:58
INR 2.20 05/08/24 12:58
APTT 37.6 Sec (23.4-35.0) H 05/08/24 12:58
Sodium 139 mmol/L (135-145) 05/12/24 04:12
Potassium 4.0 mmol/L (3.5-5.1) 05/12/24 04:12
BUN 15 mg/dl (7-17) 05/12/24 04:12
Creatinine 0.7 mg/dL (0.6-1.0) 05/12/24 04:12
Glucose 119 mg/dl (70-99) H 05/12/24 04:12
Vital Signs and I&O:
Vital Signs
Temp Pulse Resp BP Pulse Ox
98 F 106 20 136/81 94
05/13/24 04:46 05/13/24 04:46 05/13/24 04:46 05/13/24 04:46 05/13/24 04:46
Vital Signs
Temp Pulse Resp BP Pulse Ox
98 F 106 20 136/81 94
05/13/24 04:46 05/13/24 04:46 05/13/24 04:46 05/13/24 04:46 05/13/24 04:46
Intake & Output
05/11/24 05/12/24 05/13/24 05/14/24
06:59 06:59 06:59 06:59
Intake Total 1077.5 / 1077.5 1080 / 1080
Output Total 1615 / 1615 2200 / 2200
Balance -537.5 / -537.5 -1120 / -1120
Physical Exam
Physical Exam
GEN: No distress, awake, alert, oriented x3
HEENT: supple, anicteric, mmm, eomi
LUNGS: CTA B/L, no wheezes/rales
CV: Irreg, S1/S2, no murmur
ABD: soft, BS+, NT/ND
EXT: No cyanosis, clubbing, edema. missing thumb on L hand
NEURO: Gross non-focal
SKIN: Warm, pink, dry. No rash. L groin site with temp wire pulled. R groin site soft, NTTP, dressing c/d/i; R carotid site c/d/i
[2024-05-13 08:40] VITALS: BP 137/67
[2024-05-13] MEDS: NORVASC 5 MG PO (08:42)
[2024-05-13] MEDS: DULCOLAX 15 MG PO (08:42)
[2024-05-13] MEDS: VITAMIN D3 (cholecalciferol) 25 MCG PO (08:43)
[2024-05-13] MEDS: LASIX 40 MG PO (08:43)
--- NOTE | 2024-05-13 09:17 | PTCARENOTE ---
Patient care assumed at 0700. Patient has episodes of confusion but is easily redirected. Is alert and aware of person, place, time and situation. Denies all pain. On room air, O2 sat 94%, no shortness of breath. Afib on monitor with rate of 90-120,
tolerates activity and ambulation well. Uses rolling walker to ambulate. Consumed 100% of breakfast, complains of constipation - dulcolax given. Surgical site at R carotid clean, dry, intact and open to air. PIV X2 in place. Preparing for disharge
instructions.
--- NOTE | 2024-05-13 09:55 | W.DCSUMMARY ---
Discharge Summary
Discharge Data
Date of Admission: 05/11/24
Date of Discharge: 05/13/24
-
Pending Results: No
Hospital Course
Primary care physician: Khoa Rajan
Outpatient tube room supervisor: Yolanda Espinosa
Inpatient consultants: MICKEY
Procedures:
1. 05/11/24 right transcarotid transcatheter aortic valve replacement with 23mm Hernandez Marco A 3 valve
Primary Diagnosis:
1. severe aortic stenosis
2. chronic heart failure with preserved ejection fraction
3. Peripheral arterial disease
Secondary Diagnoses:
1. Hypertension
2. History of non-Hodgkin's lymphoma status post chemo in 1974
3. History of colon mass status post laparoscopic right hemicolectomy and subsequent incision and drainage of postop infection
4. Anxiety/depression
5. Chronic atrial fibrillation on Xarelto
6. Multinodular goiter
7. Hypothyroidism
8. Vitamin D deficiency
9. History of retinal vein occlusion
10. Osteopenia
11. History of PE in 1974
12. Chronic right bundle branch block
13. Chronic bronchitis
HPI: Patient is an 89-year-old female with known severe aortic stenosis. Most recent echo demonstrated preserved LV function with severe with peak and mean gradients of 89/44 mmHg respectively, aortic valve area of 0.8 cm� with mild to moderate
AI. Cardiac catheterization demonstrated nonobstructive coronary disease and she was therefore referred for TAVR. Due to extensive peripheral arterial disease decision was made to perform TAVR via right carotid artery.
Hospital course: After all preoperative workup was completed she was deemed a suitable candidate to undergo the procedure. She was brought in electively on 05/11/2024 where she underwent a right transcarotid TAVR by Juli Busch and Roxie
without any perioperative complications. She was transferred to CVICU for recovery from general anesthesia. A temporary transvenous pacing wire was left in place postprocedure due to intermittent heart block requiring ventricular pacing. Temp
wire remained in place overnight but she regained conduction after approximately 1 hour. she was started on low-dose Cardene postop for hypertension. She remained hemodynamically stable overnight on postop day 1 transvenous pacing wire and venous
sheath were removed without incident. She is in A-fib with rates in the 80s to 90s. Home Bystolic has been held, Norvasc darted for hypertension. Follow-up echo demonstrates a well-seated TAVR with a mean gradient of 7 mmHg. Plan for continued
telemetry monitoring for 1 more day. On postop day 2 she remains in A-fib with rates in the low 100s. She was seen by EP who recommends discharge to home without beta-cm with rhythm star monitor x 2 weeks. Her blood pressure has remained
stable with Norvasc. She is ambulating and functioning at her baseline. She is discharged to home with close follow-up with the transitional care nurse from [facility] who will see her in a few days. Rhythm star monitor was placed on the
patient prior to discharge and she was given instructions regarding that.
Home medication changes:
Patient is instructed to stop Bystolic at this time due to transient heart block. New prescription for Norvasc for hypertension.
Discharge Plan
-
Patient Disposition: Home (Routine Discharge)
Discharge Diagnosis/Procedures: TAVR via right Carotid Access
Condition: Good
Diet: Low Cholesterol and 2 Gram Sodium
Activity: As tolerated
Driving Restrictions: No driving for 1 week
Bathing Restrictions: OK to Shower
Others Tests: You should have a follow up
Other Services: Cardiac Rehab
Wound Care: Please do not apply lotions, creams or powders to incision or groin sites. Monitored for increased pain, swelling, redness or drainage at sites. Notify your doctor if any occur.
Specialty Instructions: Weigh Daily- Call MD for wt gain/loss 3 lbs overnight/5 lbs in 1 week
Referrals:
CT Transitional Care Nurse [Outside] - in one to two days
(
The Cardiothoracic Transitional Care Nurse will call you to set up a visit in 1-2 days.)
[facility] [Outside] - 06/14/24 1:00 pm
(Cardiac Rehab Orientation appointment and� First Exercise appointment is on 06/14 1:00.
The Cardiac Rehab gym is located on the first floor of the [facility].)
Khoa Rajan DO [Family Provider] - in four to six weeks (Please make an appointment in four to six weeks.)
Lesly Pineda PA-C [Specified Professional Personl] - 06/01/24 12:40 pm
Isaias Redd MD [Active] - 05/23/24 2:30 pm
Prescriptions:
New
amlodipine 5 mg Tablet
5 mg PO DAILY Qty: 30 1RF
Continued
levothyroxine 50 MCG tablet
50 mcg PO DAILY
cholecalciferol (vitamin D3) 25 mcg (1,000 unit) Tablet
25 mcg PO DAILY
acetaminophen [Tylenol] 325 mg Tablet
650 mg PO Q4HPRN PRN (Reason: mild pain)
vitamin E 268 mg (400 unit) Capsule
268 mg PO DAILY
solifenacin [Vesicare] 10 mg Tablet
10 mg PO DAILY
Women's Laxative (bisacodyl) 5 mg Tablet
15 mg PO DAILY
furosemide [Lasix] 40 mg tablet
40 mg PO DAILY Qty: 90 3RF
tramadol 50 mg Tablet
50 mg PO DAILYPRN PRN (Reason: moderate pain)
eszopiclone 1 mg Tablet
1 mg PO HS
Salonpas (capsaicin-menthol) 0.025-1.25 % Adhesive Patch,Medicated
2 patch TOPICAL DAILYPRN PRN (Reason: right arm)
Salonpas Lidocaine Plus 4-10 % Liquid Roll-On
1 ea TOPICAL BIDPRN PRN (Reason: right arm and legs)
trazodone 50 mg tablet
50 mg PO HS
Patient Comments:
04/03/24: Patient states she was unable to sleep even with increased dosage of trazodone last night.
Xarelto 15 mg Tablet
15 mg PO QPM Qty: 30 11RF
melatonin 5 mg Tablet
5 mg PO DAILY@2000 Qty: 30 0RF
lorazepam 0.5 mg Tablet
0.5 mg PO BID PRN (Reason: anxiety)
gabapentin 100 mg Capsule
100 mg PO HS
atorvastatin 20 mg tablet
20 mg PO QPM Qty: 30 1RF
Held
nebivolol 10 mg Tablet
10 mg PO DAILY
Hold Instructions: HOLD UNTIL RESUMED BY YOUR SMOKING PIPE COATER
Discharge Orders:
Discharge Patient (As Directed); Ordered 05/13/24
Ordered By: Katya Schwartz
Care Plan Goals
Care Plan Goals:
Problem: Readiness for enhanced knowledge related to diagnosis and treatment plan
Goal: Understand your diagnosis and treatment plan needs, including medications if applicable.
Instructions: Know your diagnosis, underlying causes and treatment plan options, including medications if applicable. Consult with your health care team to learn about your diagnosis and treatment plan, including medications if applicable.
Discharge Date and Time
Discharge Date/Time: 05/13/24 14:00
Print Language: MAURITANIAN
[2024-05-13 12:00] VITALS: BP 133/66
[2024-05-13 13:02] VITALS: BP 133/66
--- NOTE | 2024-05-13 14:02 | PTCARENOTE ---
Patient read discharge instructions thoroughly with son present at bedside. PIV removed. RhythmStar monitor placed on patient before discharge, and process explained. Brought down by RN in wheelchair to vehicle.
== END 2024-05-13 14:00 | disposition home or self-care (01) | DRG 267 ==
LOC: CVICU 05:15
PROVIDERS: Anesthesiology; Physician Assistant Surgical; ADMITTING PHYSICIAN Thoracic Surgery (Cardiothoracic Vascular Surgery); FAMILY PHYSICIAN Family Medicine Sports Medicine; OTHER PHYSICIAN Internal Medicine Critical Care Medicine
PROC: 02RF38Z Replacement of Aortic Valve with Zooplastic Tissue, Percutaneous Approach (ICD-10-PCS; 2024-05-11)
PROC: B24BZZ4 Ultrasonography of Heart with Aorta, Transesophageal (ICD-10-PCS; 2024-05-11)
DX: I35.0 Nonrheumatic aortic (valve) stenosis (principal); Z00.6 Encounter for examination for normal comparison and control in clinical research program; I48.20 Chronic atrial fibrillation, unspecified; I50.32 Chronic diastolic (congestive) heart failure; I45.10 Unspecified right bundle-branch block; I11.0 Hypertensive heart disease with heart failure; E55.9 Vitamin D deficiency, unspecified; E04.2 Nontoxic multinodular goiter; F32.A Depression, unspecified; J42 Unspecified chronic bronchitis; E03.9 Hypothyroidism, unspecified; F41.9 Anxiety disorder, unspecified; M85.80 Other specified disorders of bone density and structure, unspecified site; I73.9 Peripheral vascular disease, unspecified; Z79.01 Long term (current) use of anticoagulants; Z79.82 Long term (current) use of aspirin; Z79.899 Other long term (current) drug therapy; Z85.72 Personal history of non-Hodgkin lymphomas; Z86.711 Personal history of pulmonary embolism; Z87.891 Personal history of nicotine dependence; Z90.49 Acquired absence of other specified parts of digestive tract; Z92.21 Personal history of antineoplastic chemotherapy
CPT/HCPCS: 33999; 36415; 71045; 71046; 80048; 80053; 81003; 82248; 83036; 83880; 85025; 85027; 85347; 85610; 85730; 86850; 86900; 86901; 86920; 87070; 93005; 93306; 93312; 93320; 93325; C1760; C1769; C1874; C1894; Q9967

== ENCOUNTER 2024-05-18 13:52 | Inpatient (IN) | payer OTHER, SELFPAY ==
[2024-05-18] VITALS (39 sets, daily range): BP systolic 48–156; BP diastolic 39–118; BMI 26.3; BMI 24.0; BMI 24.2
[2024-05-18 09:11] LABS: % Basophils 0.4 % (0-2); % Eosinophils 0.4 % (0-6); % Immature Granulocytes 0.2 % (0-0.5); % Lymphocytes 21.9 % (20.5-51.1); % Monocytes 7.1 % (1.7-9.3); Absolute Monocytes 0.6 10^3/uL (0.1-0.6); Absolute Neutrophils 6.2 10^3/uL (1.4-6.5); Hemoglobin 13.2 g/dL (12.0-16.0); Mean Corp Hgb Conc. 35.7 g/dL (33.0-37.0); Mean Corpuscular Volume 89.8 fL (81.0-99.0); Mean Platelet Volume 10.8 fL (7.4-10.4); Nucleated Red Blood Cells % 0 %; Platelet Count 201 10^3/uL (130-400); Red Blood Cell Count 4.12 10^6/uL (4.20-5.40); Red Cell Dist. Width 12.9 % (11.5-14.5); White Blood Cell Count 8.9 10^3/uL (4.8-10.8)
--- NOTE | 2024-05-18 09:12 | ED.GENMED ---
History of Present Illness
General
Chief Complaint: Heart Rate Problem
Time Seen by Provider: 05/18/24 08:53
History of Present Illness
History of Present Illness:
89-year-old female history of atrial fibrillation, CHF, hypertension, hyperlipidemia, aortic stenosis status post valve replacement last week presenting with dizziness starting yesterday. Patient states that she fell twice, did not strike her head
or lose consciousness. Patient states that she was off of the Xarelto for valve replacement and has resumed as prescribed. Patient denies chest pain, shortness of breath, or lower extremity swelling.
Past History
Past History
ED Past Medical History: CAD, Cancer (Non-Hodgkin Lymphoma), CHF, HTN, Hypercholesterolemia, Hypothyroidism, Psychiatric (Anxiety ) and Other ( Chronic Bronchitis, Anemia, valve disorder)
ED Past Surgical History: Bowel resection (Colon resection) and Other (Left thumb amputation. )
Social History
Tobacco: Former smoker
Alcohol: Occasional (More then occasional 2 glasses wine)
Drug: None
Personal:
Living: alone
Employment: Other
Family History
Family History: Negative Diabetes
Phy Exam
Physical Exam
Physical Exam:
General: Alert, no acute distress
Head: NCAT
Eyes: clear conjunctiva
Neck: supple. Resolving ecchymosis right anterior neck
Cardiac: tachycardic, irregularly irregular rhythm
Lungs: clear to auscultation bilaterally. No wheezes, rales, or rhonchi. Speaking full unlabored sentences. No respiratory distress.
Abdomen: soft, nondistended nontender. No rebound or guarding.
MSK: no lower extremity edema bilaterally. No deformity
Skin: warm, dry
Neuro: no focal deficits
Course
Orders/Labs/Results
Orders:
Orders
05/18/24 08:55
Electrocardiogram (*1) Urgent
Reason for Study: Chest Pain
EKG- Treatment ONCE
IV Insert/Care/Rem.- Treatment PRN
05/18/24 09:02
Complete Blood Count/With Diff Urgent
Comprehensive Metabolic Panel Urgent
Pro-BNP [NT-proBNP] Urgent
Prothrombin Time Stat
Troponin I Urgent
05/18/24 09:05
Diltiazem HCl [Cardizem] 17 mg IV NOW STA
05/18/24 09:15
Diltiazem 125 mg/125 ml Nss [Cardizem] 125 mg in 125 ml IV PER PROTOCOL
Initial dose in mg/hr, then titrate:: 5
Titrate to keep:: Heart rate 80-100 bpm
Titrate by mg/hr:: 5 mg/hr
Frequency of titrations (minutes):: 15
Maximum dose in mg/hr:: 15
05/18/24 09:31
Lorazepam [Ativan] 0.5 mg .ROUTE .STK-MED ONE
05/18/24 09:34
Lorazepam [Ativan] 0.5 mg PO NOW STA
05/18/24 09:48
Lorazepam [Ativan] 0.5 mg PO NOW STA
05/18/24 09:49
Potassium Chloride [KCl] 40 meq PO NOW STA
05/18/24 09:54
Olanzapine [Zyprexa] 10 mg IM NOW STA
05/18/24 09:56
Olanzapine [Zyprexa Zydis (Orally Disintegrating)] 5 mg .ROUTE .STK-MED ONE
05/18/24 10:20
Restraints - Non Violent As Directed
Justification-Patient:: 1-Attempts to remove tube
Restraint Type-: Soft Limb-L&R Wrist/4rail
Apply From (date): 05/18/24
Apply from (time): 10:20
Remove (date): 05/19/24
Remove (time): 23:59
05/18/24 10:41
Lorazepam [Ativan] 2 mg .ROUTE .STK-MED ONE
05/18/24 10:48
Lorazepam [Ativan] 1 mg IV NOW STA
05/18/24 12:58
CARDIOLOGY CONSULT Routine
Consulting Provider: Shira Ramos
Was physician already notified: Yes
05/18/24 13:19
Admit/Transfer Patient As Directed
Co-Sign Provider:
Level of Care: Inpatient admission
Assign to:: IVU
Physician / Group: bell/hospitalist
Diagnosis: afib RVR
Reason for Hospitalization: Afib RVR
Expected length of stay greater than two midnights?: Yes
ELOS- Estimated Length of Stay in days: 3
I certify the patient meets the requirements for IP care: Yes
05/18/24 13:20
PRN Pain Medication Management As Directed
May give lesser potent ordered pain med per pt: Yes
preference::
Protocol:: Medication orders for pain may be administered in a
manner that supports deferring to patient preference
when the pt is:
- Requesting an ordered lesser potent pain medication.
Least to most potent pain medications are defined
as: acetaminophen < NSAID < tramadol < opioids
(morphine, oxycodone, hydromorphone).
- Requesting a lesser dose of the same medication IF
ORDERED.
- Requesting a less intrusive route of administration
if both routes are prescribed by the provider (PO <
IV).
05/18/24 13:21
Code Status As Directed
Resuscitation Status: Full Code
Abnormal Lab Results
05/18/24
09:02
RBC 4.12 L 10^6/uL
(4.20-5.40)
MCH 32.0 H pg
(27.0-31.0)
MPV 10.8 H fL
(7.4-10.4)
PT 19.2 H Sec
(11.4-14.6)
Potassium 3.2 L mmol/L
(3.5-5.1)
Chloride 90 L mmol/L
(98-107)
Carbon Dioxide 37 H mmol/L
(22-30)
BUN 27 H mg/dl
(7-17)
Creatinine 1.1 H mg/dL
(0.6-1.0)
Glucose 103 H mg/dl
(70-99)
Total Bilirubin 1.4 H mg/dl
(0.2-1.3)
Troponin I 0.050 H* ng/ml
05/18/24 09:02
05/18/24 09:02
Vital Signs
Initial and Last Documented VS:
Initial Vital Signs
Pulse Resp BP Pulse Ox
109 27 132/83 90
05/18/24 08:53 05/18/24 08:53 05/18/24 08:53 05/18/24 08:53
Last Documented Vital Signs
Temp Pulse Resp BP Pulse Ox
97.6 F 78 20 120/79 97
05/18/24 08:59 05/18/24 14:53 05/18/24 14:53 05/18/24 14:53 05/18/24 14:53
MDM/Problems Addressed
Differential Diagnosis Includes:
Symptomatic atrial fibrillation, electrolyte abnormality, HASEEB
MDM/Problems Addressed:
89-year-old female history of atrial fibrillation, aortic stenosis status post TAVR last week presenting with dizziness starting yesterday. Patient states that she fell twice, did not strike her head or lose consciousness. Patient denies any other
injuries. On arrival patient is in atrial fibrillation with RVR. Initial EKG shows atrial fibrillation at 124 bpm with QTc 494, right bundle branch block, similar to previous EKGs. Given patient had to stop Xarelto for TAVR, contraindication to
cardiovert in ER. Will start on Cardizem for rate control, admit for cardiology consultation. Pt became agitated, kept moving around. Attempted zyprexa 10mg IM, no improvement. Gave ativan 1mg IV, pt sleeping comfortably. Discussed with hospitalist
for admission
*Critical Care Note
Total Time (30-74mins, 75-104mins- exclusive of procedures): Not Applicable
ED Attending Note
-
Portions of this chart may have been created with voice recognition software.� Occasional wrong word or��sound alike� substitutions may have occurred due to the inherent limitations of voice recognition software.
Discharge Plan
Departure
Patient Disposition: Admit
Date of Disposition: 05/18/24
Time of Disposition: 11:01
Presentation/result/management discussed w/ accepting MD/DO: Hospitalist
Discharge Problem:
Atrial fibrillation with rapid ventricular response
Interventions
Interventions:
*Risk Screen - Suicide Last Done: 05/18/24 08:59
*General Assessment Last Done: 05/18/24 08:59
*Neglect/Abuse Screening Last Done: 05/18/24 08:59
ED- Fall Risk Assessment Last Done: 05/18/24 08:59
*ED COVID-19 Vaccine History Last Done: 05/18/24 08:59
ED- Cardiac Assessment Last Done: 05/18/24 10:20
ED- Pulmonary Assessment Last Done: 05/18/24 10:20
[2024-05-18 09:20] LABS: PT 19.2 Sec (11.4-14.6)
[2024-05-18] MEDS: CARDIZEM 17 MG IV (09:26)
[2024-05-18 09:29] LABS: ALT (SGPT) 22 U/L (0-35); AST (SGOT) 31 U/L (14-36); Albumin 4.6 g/dl (3.5-5.0); Alkaline Phosphatase 89 U/L (38-126); Blood Urea Nitrogen 27 mg/dl (7-17); Calcium 9.9 mg/dl (8.4-10.2); Carbon Dioxide 37 mmol/L (22-30); Chloride 90 mmol/L (98-107); Estimated Creatinine Clearance 30 ml/min; Glucose 103 mg/dl (70-99); Potassium 3.2 mmol/L (3.5-5.1); Sodium 139 mmol/L (135-145); Total Bilirubin 1.4 mg/dl (0.2-1.3); Total Protein 6.8 g/dl (6.3-8.2); eGFR 48.03
[2024-05-18] MEDS: ATIVAN 0.5 MG PO ×2 (09:35→19:46)
[2024-05-18] MEDS: CARDIZEM 125 IV ×2 (09:39→19:39)
[2024-05-18 09:48] LABS: NT-proBNP 1770 pg/ml
--- NOTE | 2024-05-18 09:53 | EDRN ---
Checking on potassium compatibility w/ cardizem.
[2024-05-18] MEDS: KCL 40 MEQ PO (10:00)
[2024-05-18] MEDS: ZYPREXA 10 MG IM (10:10)
--- NOTE | 2024-05-18 10:23 | EDRN ---
Since pt's arrival she has continuously been calling out 'help me, can you help me please?' unable to answer questions, reaching out for help and continuously. Pt unable to focus, answer any questions just continuing to call out the same plea. pt
also started to get out of bed continuously. For prt's safey Dr. Magallanes was asked about wrist restraints. pt's HR has beemn 140-174. Pt unable to sit still. pt was also administered po ativan and then 10 mg IM zyprexa. After those pt still fighting
and crying out so wrist restraints placed for pt's safety so she does not fall as she did at home.
--- NOTE | 2024-05-18 10:41 | EDRN ---
Pt continues to fight and is all over the bed. Dr. Magallanes in and pt was bladder scanned for [address] Magallanes ordered 1 mg of ativan IV at this time. Administered at this time.
[2024-05-18] MEDS: ATIVAN 1 MG IV (10:48)
--- NOTE | 2024-05-18 11:12 | EDRN ---
TT sent to Dr. Magallanes at this time-->PO down to 88%. Pt placed on oxygen at 2lpm at this time. Wrist restraints off. pt resting and one to one done and now q15 min checks on pt.
--- NOTE | 2024-05-18 11:22 | EDRN ---
Pt is now calm and can get accurate vital signs. pt was moving every time BP cuff went off and due to constant motion unable to get accurate POX or BP. Now VS are accurate as pt is not moving around so much. Son just arrived and stated pt has been
having panic attacks past couple of days and unable to calm down. HR 80's t0 110's.
--- NOTE | 2024-05-18 12:39 | EDRN ---
HOspitalist Dr. Grayson in room w/pt at this time.
--- NOTE | 2024-05-18 12:56 | HPS.HSE ---
Family Physician
-
Family Physician: Harshil Chung
Chief Complaint
-
Palpitations and lightheadedness
History of Present Illness
89-year-old female extensive past medical history who underwent transcarotid TAVR on 05/11 and was monitored in CVICU postop. Patient had an episode of atrial fibrillation and was also noted history of transient heart block. Patient beta-cm
was discontinued and heart monitor was placed on patient. At home patient was complaining of palpitation and lightheadedness. Patient had 2 episode of fall yesterday. Did not hit her head or lose consciousness. Patient was evaluated by visiting
nurse was concerned and patient was initially supposed to see outpatient cardiology today however came into the ER via EMS she was found to be in atrial fibrillation with rapid ventricular response. Patient with severe anxiety in the ER and
received Ativan and Zyprexa. Currently patient is calm and resting. Per son at bedside visit patient was complaining of lightheadedness at home.
Medical History
Past Medical History
Past Medical History: Reports Other
Additional Past Medical History:
Severe aortic stenosis status post TAVR 05/11
Chronic HFpEF
Peripheral arterial disease
History of non-Hodgkin lymphoma
History of colonic cancer status post hemicolectomy
Severe anxiety
Depression
Paroxysmal atrial fibrillation
Multinodular goiter
Hypothyroidism
Vitamin D deficiency
History of retinal vein occlusion
Osteopenia
History of pulmonary embolism
Past Surgical History: Reports Other
Additional Past Surgical History:
Hemicolectomy
TAVR
Cataract surgery
Social History
Tobacco: Former Smoker
Living: Alone
Family History
Family History: Cancer (Father)
Allergies / Home Medications
Allergies reflects when Allergies were last updated in [facility].
Home Medications with original date entered in [facility]
Allergy/Medication List:
Allergies
Allergy/AdvReac Type Severity Reaction Status Date / Time
No Known Allergies Allergy Verified 05/05/24 09:07
Home Medications
levothyroxine 50 mcg tablet 50 mcg PO DAILY Thyroid 10/25/17
acetaminophen 325 mg tablet (Tylenol) 650 mg PO Q4HPRN PRN mild pain 01/16/24
solifenacin 10 mg tablet (Vesicare) 10 mg PO DAILY Urinary Issue 01/16/24
capsaicin-menthol 0.025 %-1.25 % topical patch (Salonpas (capsaicin-menthol)) 2 patch topical DAILYPRN PRN right arm 04/03/24
eszopiclone 1 mg tablet 3 mg PO HS Sleep 04/03/24
trazodone 50 mg tablet 50 mg PO HS Sleep 04/03/24
rivaroxaban 15 mg tablet (Xarelto) 15 mg PO QPM Blood clot prevention/tx #30 tabs 04/05/24
lorazepam 0.5 mg tablet 0.5 mg PO BIDPRN PRN anxiety 05/05/24
atorvastatin 20 mg tablet 20 mg PO QPM High Cholesterol #30 tabs 05/13/24
amlodipine 5 mg tablet 5 mg PO DAILY Blood Pressure 05/18/24
furosemide 40 mg tablet (Lasix) mg PO DAILY Fluid Retention/Swelling 05/18/24
melatonin 5 mg tablet 5 mg PO DAILY@2000 sleep 05/18/24
metoprolol tartrate 25 mg tablet 25 mg PO BID Blood Pressure 05/18/24
Review of Systems
-
History Source: Patient and Family
A 12 point ROS was completed and negative except as noted: Yes
Physical Exam
Vital Signs
Vital Signs
Temp Pulse Resp BP Pulse Ox
97.6 F 88 15 113/83 100
05/18/24 08:59 05/18/24 12:30 05/18/24 12:30 05/18/24 12:30 05/18/24 12:30
Physical Exam
General: Well Developed, Well Nourished and No Apparent Distress
HEENT: NormoCephalic, Moist mucous membranes and Atraumatic
Respiratory: Clear
Cardiac: S1/S2, Irregular Rhythm and Tachycardia; No Murmur or Rub
Breast: Deferred by me
GI: Soft, Non Tender, Non Distended and Normal Bowel Sounds; No Organomegaly
Rectal: Deferred by Provider
Genito-urinary: Deferred by me
Musculoskeletal: No Clubbing, No Cyanosis and No Edema
Skin: No Rash
Neuro: Awake and Nonfocal/grossly intact
Psych: Calm (as received meds earlier )
Laboratory Results
-
05/18/24 09:02
05/18/24 09:02
Laboratory Results
PT 19.2 Sec (11.4-14.6) H 05/18/24 09:02
INR 1.60 05/18/24 09:02
Total Bilirubin 1.4 mg/dl (0.2-1.3) H 05/18/24 09:02
AST 31 U/L (14-36) 05/18/24 09:02
ALT 22 U/L (0-35) 05/18/24 09:02
Alkaline Phosphatase 89 U/L (38-126) 05/18/24 09:02
Troponin I 0.050 ng/ml H* 05/18/24 09:02
Impression/Plan
-
#Paroxysmal atrial fibrillation with rapid ventricular response
#Elevated troponin
Continue with Cardizem drip for now
Monitor patient's heart rate as patient was noted to be in transient heart block post TAVR
Continue to trend for now
Continue with Xarelto
Monitor on telemetry
Cardiology consultation
#Lightheadedness likely secondary to dehydration
Could be also due to atrial fibrillation with rapid ventricular response
Will do gentle IV fluids
Fall precautions
Check CT head as with falls on Xarelto
#Acute kidney injury likely secondary dehydration
Hold Lasix
Urine lites
IV fluids
Trend BMP
#Hypokalemia
replete/monitor
#Severe aortic stenosis status post TAVR 05/11
#Chronic HFpEF
Hold Lasix for today
proBNP lower compared to past admissions
Strict I's and O's with daily weights
#Primary hypertension
Currently controlled
Severe generalized anxiety
Continue with Ativan as needed
Patient prior hospitalization reviewed and patient with multiple triggers for anxiety including constipation, pain / needles / etc.
DVT ppx-Xarelto
Full code
Discussed with patient son at bedside in detail
I spent a total of 76 minutes with the patient or on the floor. More than 50% of this time involved counseling and coordination of care.
--- NOTE | 2024-05-18 13:36 | EDRN ---
Pt is now awake and drinking water at this time. Pt's son is telling pt about what hospitalist said to him as pt was sound asleep. Pt is calmer now and cooperative and not anxious or panicky at this time.
--- NOTE | 2024-05-18 13:57 | EDRN ---
Will TT MD for diet order as none seen in order transfer.
--- NOTE | 2024-05-18 14:02 | EDRN ---
Miriam WHALEN w/ cardiology in room and said pt can eat at this time. Getting boxed lunch.
--- NOTE | 2024-05-18 14:21 | EDRN ---
Son is assisting pt to eat a boxed lunch at this time.
--- NOTE | 2024-05-18 14:37 | CON.CAR ---
Addendum entered and electronically signed by Shira Ramos DO 05/18/24 16:55:
I saw and examined the patient.
The Table Attendant's note was reviewed and I agree with the note.
Comment: Patient is an 89 yo F with recent transcarotid TAVR 05/11/24. Post procedure was noted to have intermittent pacer dependence (~1 hour) with pre-existing incomplete RBBB in afib. This resolved, however bystolic was held on DC with rhythm
star monitor in place. She lives independently, reportedly still drives, and had transitional care nursing coming to her home. On Wednesday her neighbor had come to check on her and called CT surgery for instruction on getting her monitor back on -
she had left with it in place. Son at bedside reports patient complained of some dizziness on Wednesday and transitional care nurse was concerned about her HR being elevated and that rhythm star monitor was not working. A call was placed to our
office, toprol 25mg BID was ordered, and her appt was pushed up to today, however she was unable to make that appt as last evening she again had dizziness and had 2 falls. Patient states she fell into her walker. Denies preceding dizziness. Denies
syncope. States they were trip and fall events. No recent fevers. Reports not eating well but feels drinking fine. For me, patient noted to be confused and restless, however told ER staff on arrival that she had been compliant with medications
including xarelto. She was confused trying to find her rhythm star monitor to give me. She had received IM zyprexa and IV/po ativan in ER as reportedly has significant anxiety. Currently in rate controlled afib on IV cardizem gtt at 15.
General:awake, confused.
HEENT: dry mm
Respiratory:bronchovesicular BS. decreased
Cardiac: irregularly irregular, tachycardic S1/S2 and Irregular Rhythm, no rub
GI: Soft, Non Tender, Non Distended and Normal Bowel Sounds
Musculoskeletal: No edema. (missing thumb on L hand)
Plan:
-Patient s/p recent transcarotid TAVR 05/11, discharged to home 05/13/24 complicated by post procedure LBBB and heart block requiring temporary pacing
-Presents back to ER with fall x2 on 05/17 and in rapid afib
-She was discharged with Rhythm Star but it is unclear if or for how long she was wearing monitor. Will contact Rhythm star.
-HRs much improved on IV cardizem gtt @15
-Transition off IV Cardizem to Toprol 25mg daily and monitor HR/tele
-continue OP Xarelto
Change in mental status after fall and s/p Ativan/Zyprexa in ED
-Check CT head
-check CXR and UA to rule out underlying infectious process in setting of altered mental status, falls, HASEEB.
-appears dehydrated by blood work in ER. hold lasix and consider gentle IVF
-Repleted potassium in ER
-? ETOH use disorder
-d/w family at bedside
Original Note:
Consultation
Consultation Request
Date/Time Consultation Performed: 05/18/24
Requesting Provider: Dr. Grayson
Performing Provider: Miriam Beltran PA-C for Dr. Ramos
Reason for Consultation: afib
Medical History
-
Chief Complaint: falls
History of Present Illness:
Patient is an 89 yo F with recent transcarotid TAVR 05/11/24. Post procedure was noted to have intermittent pacer dependence (~1 hour) with pre-existing incomplete RBBB in afib. This resolved, however bystolic was held on DC with rhythm star monitor
in place. She lives independently, reportedly still drives, and had transitional care nursing coming to her home. On Wednesday her neighbor had come to check on her and called CT surgery for instruction on getting her monitor back on - she had left
with it in place. Son at bedside reports patient complained of some dizziness on Wednesday and transitional care nurse was concerned about her HR being elevated and that rhythm star monitor was not working. A call was placed to our office, toprol 25mg
BID was ordered, and her appt was pushed up to today, however she was unable to make that appt as last evening she again had dizziness and had 2 falls. Patient states she fell into her walker. Denies preceding dizziness. Denies syncope. States they
were trip and fall events. No recent fevers. Reports not eating well but feels drinking fine. For me, patient noted to be confused and restless, however told ER staff on arrival that she had been compliant with medications including xarelto. She was
confused trying to find her rhythm star monitor to give me. She had received IM zyprexa and IV/po ativan in ER as reportedly has significant anxiety. Currently in rate controlled afib on IV cardizem gtt at 15.
PMH:
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
-Paroxysmal a-fib
-chronic OAC with Xarelto
-pre-existing incomplete RBBB
-Chronic diastolic CHF
-HTN
-Hx of Non-Hodgkin lymphoma s/p chemo
-Hx of adenocarcinoma of colon s/p lap R hemicolectomy at [facility], evacuation of abd wall abscess at
-Hepatic lesion with concern for metastasis of above
-Anxiety/depression
-Multinodular goiter
-Hypothyroidism
-Vit D deficiency
-Hx of retinal vein occlusion
-Hx of remote PE (1974)
-Daily EtOH
-Chronic bronchitis
-Mild memory loss
Past Medical History
Past Medical History: Other (in HPI)
Social History
Tobacco: Former Smoker
Alcohol: Daily
Personal:
Living: Alone
Family History
Family History: Reviewed & Not Pertinent
Allergies / Home Medications
Allergy/AdvReac Type Severity Reaction Status Date / Time
No Known Allergies Allergy Verified 05/05/24 09:07
�Medication �Instructions �Recorded �Confirmed �Type
levothyroxine 50 mcg tablet 50 mcg PO DAILY Thyroid 10/25/17 05/18/24 History
acetaminophen 325 mg tablet 650 mg PO Q4HPRN PRN mild pain 01/16/24 05/18/24 History
(Tylenol)
solifenacin 10 mg tablet (Vesicare) 10 mg PO DAILY Urinary Issue 01/16/24 05/18/24 History
capsaicin-menthol 0.025 %-1.25 % 2 patch topical DAILYPRN PRN right 04/03/24 05/18/24 History
topical patch (Salonpas arm
(capsaicin-menthol))
eszopiclone 1 mg tablet 3 mg PO HS Sleep 04/03/24 05/18/24 History
trazodone 50 mg tablet 50 mg PO HS Sleep 04/03/24 05/18/24 History
rivaroxaban 15 mg tablet (Xarelto) 15 mg PO QPM Blood clot 04/05/24 05/18/24 Rx
prevention/tx #30 tabs
lorazepam 0.5 mg tablet 0.5 mg PO BIDPRN PRN anxiety 05/05/24 05/18/24 History
atorvastatin 20 mg tablet 20 mg PO QPM High Cholesterol #30 05/13/24 05/18/24 Rx
tabs
amlodipine 5 mg tablet 5 mg PO DAILY Blood Pressure 05/18/24 05/18/24 History
furosemide 40 mg tablet (Lasix) mg PO DAILY Fluid 05/18/24 History
Retention/Swelling
melatonin 5 mg tablet 5 mg PO DAILY@1999 sleep 05/18/24 05/18/24 History
metoprolol tartrate 25 mg tablet 25 mg PO BID Blood Pressure 05/18/24 05/18/24 History
Review of Systems
-
History Source: Patient and Family
All other systems: Negative unless noted
Physical Exam
Vital Signs
Temp Pulse Resp BP Pulse Ox
97.6 F 80 16 95/63 98
05/18/24 08:59 05/18/24 14:20 05/18/24 14:20 05/18/24 14:20 05/18/24 14:20
Lab Results
05/18/24 09:02
05/18/24 09:02
Troponin I 0.050 ng/ml H* 05/18/24 09:02
Jrn-F-Aaocdhqfueo Pept 1770 pg/ml 05/18/24 09:02
Physical Exam
General: Other (restless, confused at times. on supp O2)
HEENT: Normocephalic, Anicteric and Moist Mucous Membranes
Respiratory: Clear and Non Labored Respirations
Cardiac: S1/S2 and Irregular Rhythm
GI: Soft, Non Tender, Non Distended and Normal Bowel Sounds
Musculoskeletal: No Clubbing, No Cyanosis, No Edema and Other (missing thumb on L hand)
Skin: Warm and Dry
Neuro: Awake, Alert and Oriented (to self, place, president)
Impression / Plan
-
Primary Endless Bed Drum Sander: Dr. Yolanda Espinosa
Assessment:
-Falls
-Concern for dehydration with HASEEB
-hypokalemia
-Afib with RVR
-Significant anxiety s/p medication in ER with subsequent confusion/altered mental status
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
-Paroxysmal a-fib
-chronic OAC with Xarelto
-pre-existing incomplete RBBB
-Chronic diastolic CHF
-HTN
-Hx of Non-Hodgkin lymphoma s/p chemo
-Hx of adenocarcinoma of colon s/p lap R hemicolectomy at [facility], evacuation of abd wall abscess at
-Hepatic lesion with concern for metastasis of above
-Anxiety/depression
-Multinodular goiter
-Hypothyroidism
-Vit D deficiency
-Hx of retinal vein occlusion
-Hx of remote PE (1974)
-Daily EtOH
-Chronic bronchitis
-Mild memory loss
ECHO 01/17/24: EF 57%, mild cLVH, severe with peak/mean gradients 89/44mmHg, CARMEN 0.8cm2, mild TR, PAP 25-30mmHg
ECHO 05/12/24: EF 57%, mild LVG s/p 23 mm Hernandez Marco A S3 TAVR, 13/7 mmHg, mild to mod TR, PASP 42 mmHg
Plan:
-Patient s/p recent transcarotid TAVR 05/11. Discharged to home 05/13/24 with rhythm star monitor and off OP bystolic. Presents back to ER with fall x2 on 05/17 and in rapid afib
-currently HRs much improved on IV cardizem gtt @15, continue. would plan to initiate toprol 25mg daily and wean off IV cardizem gtt as able in AM. follow rhythm, has incomplete RBBB at baseline and had temporary pacer dependence immediately post
TAVR
-continue OP xarelto, patient reports compliance
-check CXR and UA to rule out underlying infectious process in setting of altered mental status, falls, HASEEB.
-appears dehydrated by blood work in ER. hold lasix and consider gentle IVF
-repleted potassium in ER
-with significant anxiety in ER and was given IM zyprexa and 1mg IV and 0.5mg po ativan. now with some confusion. follow mental status. checking head CT given falls on xarelto
-appears she was not able to complete OP cardiac monitoring
-PT/OT evals. would consider for SNF or greater level of home care upon DC. she lives alone independently. CM consult
-d/w ER physician. d/w hospitalist. notified CT surgery. d/w patient and son at bedside
Data Reviewed
-
EKG: Tracing Personally Visualized and interpreted
Medical Tests (Nuc Med, Echo etc): Report Reviewed by me
Labs: Labs Reviewed by me
Old Records: Reviewed
--- NOTE | 2024-05-18 14:59 | EDRN ---
Verbal Report given to Sindhu OLMEDO in IVU at this time.
--- NOTE | 2024-05-18 15:45 | EDRN ---
Blood pressures at 15:00 invalid and attempted to retake them but new BPs did not down load as monitor went off enroute to admission bed.
--- NOTE | 2024-05-18 15:50 | PTCARENOTE ---
Rec'd Pt at 1535, awake and alert, oriented x3. She also knew the year and the president. Pt very anxious about being moved from the stretcher to the bed, she is fearful of falling. Pt on Cardizem drip at 15 mg/hr. She denies pain.
--- NOTE | 2024-05-18 16:57 | CM ---
CM following for DC planning needs.
Met w/ patient at bedside to complete initial assessment.
Friend, Zo also at bedside.
Pt. was recently hospitalized for TAVR. She was sent home w/ CT Transitional Care RN,followed by [facility].
Pt. with some confusion at present. States that she cannot get out of bed.
Baseline is indep. w/ RW and SPC.
Will need to see how patient fares this hospitalization.
Antic. DC to home w/ VN vs. SNF placement.
Will follow.
[2024-05-18 17:35] LABS: Troponin I 0.059 ng/ml
[2024-05-18] MEDS: NSS 1000 IV (17:42)
[2024-05-18] MEDS: XARELTO 15 MG PO (18:07)
[2024-05-18] MEDS: LIPITOR 20 MG PO (18:07)
[2024-05-18] MEDS: LOPRESSOR 25 MG PO (19:46)
[2024-05-18] MEDS: DESYREL 50 MG PO (19:47)
[2024-05-18] MEDS: MELATONIN 5 MG PO (19:47)
[2024-05-18] MEDS: TYLENOL 650 MG PO (20:37)
[2024-05-18] MEDS: BenGay-Like 1 APPLIC TOPICAL (20:37)
--- NOTE | 2024-05-18 22:01 | PTCARENOTE ---
Pt AAOx2 self and date- although she got her date of wrong. Pt resistant to care- explained that she needs to void. pt states that she 'peed 20 times today, leave me alone- I need to sleep or I am going to get PNA'. afib on the monitor. 70s-
90s. Cardizem and iv fluids running as documented. Pt x1 assist to the bed side commode. orders obtained for [facility] for complaints of 'arthritic' arm pain.
[2024-05-18 23:29] LABS: Troponin I 0.054 ng/ml
[2024-05-19] VITALS (16 sets, daily range): BP systolic 103–148; BP diastolic 48–125; PULSE 91–93; O2SAT 95; BMI 24.2
[2024-05-19] MEDS: TYLENOL 650 MG PO (01:29)
[2024-05-19 01:38] LABS: Urine Albumin Trace (Neg - Trace); Urine Bilirubin Negative (Negative); Urine Character Clear (Clear); Urine Color Yellow; Urine Glucose Negative (Negative); Urine Ketone Trace (Negative); Urine Leukocyte Negative (Negative); Urine Nitrite Negative (Negative); Urine Occult Blood Negative (Negative); Urine Specific Gravity 1.015 (<1.030); Urine Urobilinogen Negative (Neg - 1+)
[2024-05-19 01:48] LABS: Urine Sodium 16 mmol/L (30-90)
[2024-05-19 05:29] LABS: % Basophils 0.9 % (0-2); % Eosinophils 2.5 % (0-6); % Immature Granulocytes 0.2 % (0-0.5); % Lymphocytes 31.1 % (20.5-51.1); % Monocytes 8.6 % (1.7-9.3); % Neutrophils 56.7 % (42.2-75.2); Absolute Basophils 0.1 10^3/uL (0-0.2); Absolute Eosinophils 0.2 10^3/uL (0-0.7); Absolute Monocytes 0.6 10^3/uL (0.1-0.6); Absolute Neutrophils 3.6 10^3/uL (1.4-6.5); Hematocrit 34.6 % (37.0-47.0); Hemoglobin 12.2 g/dL (12.0-16.0); Mean Corp Hgb Conc. 35.3 g/dL (33.0-37.0); Mean Corpuscular Hgb 32.8 pg (27.0-31.0); Mean Platelet Volume 11.5 fL (7.4-10.4); Nucleated Red Blood Cells % 0 %; Platelet Count 174 10^3/uL (130-400); Red Blood Cell Count 3.72 10^6/uL (4.20-5.40); Red Cell Dist. Width 12.9 % (11.5-14.5); White Blood Cell Count 6.4 10^3/uL (4.8-10.8)
[2024-05-19] MEDS: SYNTHROID 50 MCG PO (05:48)
[2024-05-19 06:54] LABS: Blood Urea Nitrogen 24 mg/dl (7-17); Calcium 9.1 mg/dl (8.4-10.2); Carbon Dioxide 35 mmol/L (22-30); Chloride 99 mmol/L (98-107); Estimated Creatinine Clearance 37 ml/min; Glucose 97 mg/dl (70-99); Potassium 3.2 mmol/L (3.5-5.1); Sodium 140 mmol/L (135-145); eGFR > 60.00
--- NOTE | 2024-05-19 07:30 | PTCARENOTE ---
Assisted the patient to the commode as she stated that she had to 'pee'. She wasn't able to urinated but did have some flatus. She had no complains of dizziness however, her HR did increase to the 120's while up. I bladder scanned her for 151 ml of
urine. Her belly is soft and not distended.
[2024-05-19] MEDS: DETROL LA 4 MG PO (08:25)
[2024-05-19] MEDS: BenGay-Like 1 APPLIC TOPICAL ×2 (08:26→19:51)
[2024-05-19] MEDS: KCL 40 MEQ PO (08:26)
[2024-05-19] MEDS: LOPRESSOR 25 MG PO ×2 (08:26→19:50)
[2024-05-19] MEDS: FLUSH (NSS) 1 FLUSH IV (08:26)
--- NOTE | 2024-05-19 09:46 | W.PN.CARDCBS ---
Addendum entered and electronically signed by Shira Ramos DO 05/19/24 10:17:
I saw and examined the patient.
The Mechanic's note was reviewed and I agree with the note.
Comment: Seen and examined. Patient is calm without complaints.
General: Awake alert and oriented.
Heart: Irregularly irregular positive S1-S2. 6 SM
Lungs: CTA b/l, negative wheezes/rales/rhonchi
Abd: Positive BS, NT/ND, neg rebound/rigidity/guarding
Ext: No edema
Plan:
-Patient s/p recent transcarotid TAVR 05/11, discharged to home 05/13/24 complicated by post procedure LBBB and heart block requiring temporary pacing
-Presents back to ER with fall x2 on 05/17 and in rapid afib
-She was discharged with Rhythm Star but it is unclear if or for how long she was wearing monitor. Will contact Rhythm star today.
-Heart rates have improved�transition off of IV Cardizem
-Continue Lopressor 25 mg twice daily and monitor on telemetry given post procedure heart block
-Continue outpatient Xarelto
-No need to repeat 2D echocardiogram at this time but will repeat previously scheduled echocardiogram 1 month following procedure as an out
Change in mental status after fall and s/p Ativan/Zyprexa in ED; patient appears dehydrated. Suspect alcohol use disorder may be contributing to presentation
-mentation appears somewhat improved today, but remains confused at times. continue to monitor. head CT negative for acute abnormalities.
-Creatinine has improved with IV hydration. Will stop IV fluids and resume oral Lasix at a lower dose, 20 mg daily tomorrow
-Repleted potassium in ER
-? ETOH use disorder
-PT/OT evals. would consider for SNF or greater level of home care upon DC. she lives alone independently. CM consult
Original Note:
Today's Communication / Plan
-
wean IV cardizem
follow mental status
replete K
consider resuming lower dose lasix 20mg daily in AM
PT/OT
Impression / Plan
-
Primary Silk Blocker: Dr. Yolanda Espinosa
Assessment:
-Falls
-Concern for dehydration with HASEEB
-hypokalemia
-Afib with RVR
-Significant anxiety s/p medication in ER with subsequent confusion/altered mental status
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
-Paroxysmal a-fib
-chronic OAC with Xarelto
-pre-existing incomplete RBBB
-Chronic diastolic CHF
-HTN
-Hx of Non-Hodgkin lymphoma s/p chemo
-Hx of adenocarcinoma of colon s/p lap R hemicolectomy at [facility], evacuation of abd wall abscess at
-Hepatic lesion with concern for metastasis of above
-Anxiety/depression
-Multinodular goiter
-Hypothyroidism
-Vit D deficiency
-Hx of retinal vein occlusion
-Hx of remote PE (1974)
-Daily EtOH
-Chronic bronchitis
-Mild memory loss
ECHO 01/17/24: EF 57%, mild cLVH, severe with peak/mean gradients 89/44mmHg, CARMEN 0.8cm2, mild TR, PAP 25-30mmHg
ECHO 05/12/24: EF 57%, mild LVG s/p 23 mm Hernandez Marco A S3 TAVR, 13/7 mmHg, mild to mod TR, PASP 42 mmHg
Plan:
-Patient s/p recent transcarotid TAVR 05/11. Discharged to home 05/13/24 with rhythm star monitor and off OP bystolic. Presents back to ER with fall x2 on 05/17 and in rapid afib
-mentation appears somewhat improved today, but remains confused at times. continue to monitor. head CT negative for acute abnormalities
-HRs stable on IV cardizem gtt @5 and lopressor 25mg BID. attempt to wean off IV cardizem today. no issues with bradycardia/pauses overnight. she has incomplete RBBB and baseline and had temporary complete heart block after TAVR deployment which
subsequently resolved
-continue xarelto
-CXR without acute abnormalities. UA without evidence of UTI.
-Cr improved s/p gentle IVF. hold off on additional IVF at this time.
-replete K. mag 2.0.
-holding lasix, consider resuming 20mg daily in AM
-appears she was not able to complete OP cardiac monitoring as ordered
-PT/OT evals. would consider for SNF or greater level of home care upon DC. she lives alone independently. CM consult
Progress Note - Silk Blocker
Subjective
Date of Service: May 19, 2024
reports feeling well this morning. no chest pain, SOB, palpitations.
Objective
Labs:
05/19/24 05:00
05/19/24 06:08
Labs
Hgb 12.2 g/dL (12.0-16.0) 05/19/24 05:00
Hct 34.6 % (37.0-47.0) L 05/19/24 05:00
Plt Count 174 10^3/uL (130-400) 05/19/24 05:00
PT 19.2 Sec (11.4-14.6) H 05/18/24 09:02
INR 1.60 05/18/24 09:02
Sodium 140 mmol/L (135-145) 05/19/24 06:08
Potassium 3.2 mmol/L (3.5-5.1) L 05/19/24 06:08
BUN 24 mg/dl (7-17) H 05/19/24 06:08
Creatinine 0.9 mg/dL (0.6-1.0) 05/19/24 06:08
Glucose 97 mg/dl (70-99) 05/19/24 06:08
Troponins
05/18/24 05/18/24 05/18/24
09:02 17:03 22:42
Troponin I 0.050 H* 0.059 H* 0.054 H*
Vital Signs and I&O:
Vital Signs
Temp Pulse Resp BP Pulse Ox
98.5 F 94 20 128/70 94
05/19/24 07:39 05/19/24 08:00 05/19/24 07:39 05/19/24 07:45 05/19/24 07:45
Vital Signs
Temp Pulse Resp BP Pulse Ox
98.5 F 94 20 128/70 94
05/19/24 07:39 05/19/24 08:00 05/19/24 07:39 05/19/24 07:45 05/19/24 07:45
Intake & Output
05/17/24 05/18/24 05/19/24 05/20/24
07:59 07:59 07:59 07:59
Output Total 500 / 500
Balance -500 / -500
Physical Exam
Physical Exam
GEN: No distress, awake, alert, oriented x3, but confused at times
HEENT: supple, anicteric, mmm, eomi
LUNGS: CTA B/L, no wheezes/rales
CV: Irreg, S1/S2, no murmur
ABD: soft, BS+, NT/ND
EXT: No cyanosis, clubbing, edema. missing thumb on L hand
NEURO: Gross non-focal
SKIN: Warm, pink, dry. No rash.
--- NOTE | 2024-05-19 11:26 | PTCARENOTE ---
The patient voided 5ml of clear yellow urine. PVR was 147. I encouraged the patient to drink to stay hydrated.
--- NOTE | 2024-05-19 11:28 | PTCARENOTE ---
The patient voided 50ml of clear pradeep colored urine. PVR was 147. I encouraged the patient to drink to stay hydrated.
--- NOTE | 2024-05-19 12:16 | PTCARENOTE ---
The patient's phone was ringing and she tried to get oob to alert me setting off the bed alarm and med sitter. She wanted to get me 'because your sister is trying to call.' I reoriented her to her room and assured her that my sister won't be calling
on her phone. She keeps asking if she can get dressed because she 'has to leave by 5.' I explained to her that she may not be discharged today as she is experiencing some confusion and it might not be safe.
--- NOTE | 2024-05-19 13:09 | W.PN.HOSP.TC ---
Today's Communication/Plan
-
Plan to wean off Cardizem drip
Continue p.o. Toprol
Monitor heart rate
Physical Occupational Therapy
May require placement
Monitor mentation
Replete potassium
Assessment / Plan
Assessment / Plan
General: Well Developed, Well Nourished and No Apparent Distress
HEENT: NormoCephalic, Moist mucous membranes and Atraumatic
Respiratory: Clear
Cardiac: S1/S2, Irregular Rhythm and Tachycardia; No Murmur or Rub
Breast: Deferred by me
GI: Soft, Non Tender, Non Distended and Normal Bowel Sounds; No Organomegaly
Rectal: Deferred by Provider
Genito-urinary: Deferred by me
Musculoskeletal: No Clubbing, No Cyanosis and No Edema
Skin: No Rash
Neuro: Awake and Nonfocal/grossly intact
Psych: Calm
#Paroxysmal atrial fibrillation with rapid ventricular response
#Elevated troponin likely 2/2 non ischemic myocardial injury
Continue with Cardizem drip for now-HR improved and with plan to wean off gtt.
Monitor patient's heart rate as patient was noted to be in transient heart block post TAVR
Continue to trend for now
Continue with Xarelto
Monitor on telemetry
Started on lopressor 25mg BID
Cardiology consultation
#Lightheadedness likely secondary to dehydration
Could be also due to atrial fibrillation with rapid ventricular response
s/p IVF. Hold further IVF.
Fall precautions
Check CT head -NEGATIVE for acute pathology.
#Acute kidney injury likely secondary dehydration
Hold Lasix
Cr improved. Hold further IVF.
s/p IVF. Encourage po intake.
Trend BMP
#Hypokalemia
replete/monitor
#Severe aortic stenosis status post TAVR 05/11
#Chronic HFpEF
Hold Lasix for today
proBNP lower compared to past admissions
Strict I's and O's with daily weights
#Primary hypertension
Currently controlled
Severe generalized anxiety
Continue with Ativan as needed
Patient prior hospitalization reviewed and patient with multiple triggers for anxiety including constipation, pain / needles / etc.
s/p 1.5mg Ativan and 10mg IM zyprexa on admission
DVT ppx-Xarelto
Full code
Discussed with patient son over the phone in details.
PT/OT-CM for placement.
Anticipated Discharge: > 48 hours
Subjective/Interval History
-
Date of Service: May 19, 2024
awake, alert and more calm
finished breakfast
remains on cardizem gtt
Objective Data
-
Labs:
Laboratory Results
05/19/24 05/19/24
05:00 06:08
WBC 6.4
Hgb 12.2
Hct 34.6 L
Plt Count 174
Sodium Cancelled 140
Potassium Cancelled 3.2 L
Chloride Cancelled 99
Carbon Dioxide Cancelled 35 H
BUN Cancelled 24 H
Creatinine Cancelled 0.9
Glucose Cancelled 97
Calcium Cancelled 9.1
Vital Signs:
Vital Signs
Temp Pulse Resp BP Pulse Ox
98.3 F 87 20 112/73 94
05/19/24 11:44 05/19/24 12:00 05/19/24 11:44 05/19/24 11:46 05/19/24 11:44
I&O
05/18/24 05/19/24 05/20/24
06:59 06:59 06:59
Output Total 500 / 500
Balance -500 / -500
Data Reviewed
-
Total Time Spent with Patient (in minutes): 51
[2024-05-19] MEDS: BenGay-Like TOPICAL ×2 (13:15→17:35)
--- NOTE | 2024-05-19 14:25 | CM ---
CM following for DC planning needs.
Met w/ patient at bedside on several occasions today.
Pt. with confused conversation; unable to participate in meaningful DC planning conversation. 1:[address]
Prior to TAVR, patient was quite indep. and awake, alert. Pt. is reportedly not at baseline.
I believe patient may benefit from SNF placement at time of DC, particularly if she is not at cognitive baseline.
Will see if patient improves over the weekend.
Will need PT-OT evaluations to ascertain functional status.
Placement options will be limited due to [employer] insurance. Will need insurance authorization prior to DC.
Will follow closely.
--- NOTE | 2024-05-19 16:23 | PTCARENOTE ---
The patient voided twice since the last bladder scan. Both voids were unmeasurable as she miss the collection container.
--- NOTE | 2024-05-19 16:46 | PTCARENOTE ---
Cardizem gtt discontinued at 1600. Patient's HR has been fluctuating between 80-100. She has no complaints of sob or dizziness. She has been ambulating in the room and in the dominguez with assist a a SPC. Her gait is steady.
[2024-05-19] MEDS: LIPITOR 20 MG PO (17:35)
[2024-05-19] MEDS: XARELTO 15 MG PO (17:35)
--- NOTE | 2024-05-19 18:30 | PTCARENOTE ---
The patient has been impulsive all shift. She has difficulty waiting for assistance before getting out of the bed or chair resulting in setting off the bed/chair alarms. In addition, she fails to listen to the directions of the Med Sitter. She has
been forgetful and confused at times throughout the shift.
[2024-05-19] MEDS: ATIVAN 0.5 MG PO (19:50)
[2024-05-19] MEDS: MELATONIN 5 MG PO (19:50)
[2024-05-19] MEDS: DESYREL 50 MG PO (19:51)
--- NOTE | 2024-05-19 21:05 | PTCARENOTE ---
pt confused this shift. oriented to self and time but not place. she stated we were at the [facility] [employer] [place] [address]. med sitter remains in place but pt is frequently setting off the bed alarm-just getting oob to get dressed to leave. pt frequently
forgets to use her spc or rw. bed alarm remains in place for safety. afib on the monitor.
[2024-05-20] VITALS (8 sets, daily range): BP systolic 112–146; BP diastolic 76–96; PULSE 96–100; BMI 24.2
[2024-05-20] MEDS: SYNTHROID 50 MCG PO (05:26)
[2024-05-20 05:43] LABS: % Basophils 0.8 % (0-2); % Eosinophils 2.3 % (0-6); % Immature Granulocytes 0.3 % (0-0.5); % Lymphocytes 24.2 % (20.5-51.1); % Monocytes 6.2 % (1.7-9.3); % Neutrophils 66.2 % (42.2-75.2); Absolute Basophils 0.1 10^3/uL (0-0.2); Absolute Eosinophils 0.2 10^3/uL (0-0.7); Absolute Lymphocytes 2.3 10^3/uL (1.2-3.4); Absolute Monocytes 0.6 10^3/uL (0.1-0.6); Absolute Neutrophils 6.3 10^3/uL (1.4-6.5); Hematocrit 36.8 % (37.0-47.0); Hemoglobin 12.7 g/dL (12.0-16.0); Mean Corp Hgb Conc. 34.5 g/dL (33.0-37.0); Mean Corpuscular Hgb 31.4 pg (27.0-31.0); Mean Corpuscular Volume 91.1 fL (81.0-99.0); Mean Platelet Volume 11.1 fL (7.4-10.4); Nucleated Red Blood Cells % 0 %; Platelet Count 192 10^3/uL (130-400); Red Blood Cell Count 4.04 10^6/uL (4.20-5.40); Red Cell Dist. Width 12.9 % (11.5-14.5); White Blood Cell Count 9.5 10^3/uL (4.8-10.8)
[2024-05-20 06:04] LABS: Blood Urea Nitrogen 19 mg/dl (7-17); Calcium 9.5 mg/dl (8.4-10.2); Carbon Dioxide 31 mmol/L (22-30); Chloride 101 mmol/L (98-107); Estimated Creatinine Clearance 37 ml/min; Glucose 103 mg/dl (70-99); Sodium 143 mmol/L (135-145); eGFR > 60.00
--- NOTE | 2024-05-20 08:21 | PTCARENOTE ---
Pt A,A +Ox2, she did not know she was in hospital. She is pleasant and cooperative.
[2024-05-20] MEDS: DETROL LA 4 MG PO (09:29)
[2024-05-20] MEDS: LOPRESSOR 25 MG PO ×2 (09:30→19:41)
[2024-05-20] MEDS: BenGay-Like 1 APPLIC TOPICAL ×2 (09:31→22:09)
--- NOTE | 2024-05-20 09:45 | W.PN.CARDCBS ---
Addendum entered and electronically signed by João Espinosa MD 05/20/24 10:12:
No shortness of breath, chest pain, palpitations. There is been no dizziness near syncope or syncope.
GEN: No distress, awake, alert, oriented to self. sitting in chair
LUNGS: CTA B/L, no wheezes/rales
CV: Irreg, S1/S2, 1/6 BSEM, no rubs
ABD: soft, BS+, NT/ND
EXT: No cyanosis, clubbing, edema. missing thumb on L hand
NEURO: Gross non-focal
Overall has stabilized from a cardiac standpoint. Also renal function improved.
Rates in atrial fibrillation are adequately controlled on low-dose beta-cm without any evidence of heart block.
Importantly, she has been monitored now for several days and also attempts at outpatient monitoring were unsuccessful as patient was not able to adequately/appropriately utilize the monitor. Furthermore plan is to discharge to SNF where there can
be some assessment of heart rate.
Recommend continuing current dose of beta-cm
Continue oral anticoagulation.
Not adding much else from a cardiac standpoint. We will sign off. Please call us if needed. She currently has outpatient follow-up appointment with our office arranged
Original Note:
Today's Communication / Plan
-
HRs in afib adequately controlled. hesitant to aggressively uptitrate rate control given temporary heart block post TAVR
continue xarelto
work up of confusion per primary service
consider resuming po lasix
Impression / Plan
-
Primary Compliance Program Manager: Dr. Yolanda Espinosa
Assessment:
-Falls
-Concern for dehydration with HASEEB
-hypokalemia
-Afib with RVR
-Significant anxiety s/p medication in ER with subsequent confusion/altered mental status
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
-Paroxysmal a-fib
-chronic OAC with Xarelto
-pre-existing incomplete RBBB
-Chronic diastolic CHF
-HTN
-Hx of Non-Hodgkin lymphoma s/p chemo
-Hx of adenocarcinoma of colon s/p lap R hemicolectomy at [facility], evacuation of abd wall abscess at
-Hepatic lesion with concern for metastasis of above
-Anxiety/depression
-Multinodular goiter
-Hypothyroidism
-Vit D deficiency
-Hx of retinal vein occlusion
-Hx of remote PE (1974)
-Daily EtOH
-Chronic bronchitis
-Mild memory loss
ECHO 01/17/24: EF 57%, mild cLVH, severe with peak/mean gradients 89/44mmHg, CARMEN 0.8cm2, mild TR, PAP 25-30mmHg
ECHO 05/12/24: EF 57%, mild LVG s/p 23 mm Hernandez Marco A S3 TAVR, 13/7 mmHg, mild to mod TR, PASP 42 mmHg
Plan:
-Patient s/p recent transcarotid TAVR 05/11. Discharged to home 05/13/24 with rhythm star monitor and off OP bystolic. Presents back to ER with fall x2 on 05/17 and in rapid afib
-HRs improved on review of tele. overall <100, occasionally higher with ambulation. follow on tele. continue lopressor 25mg BID. she has chronic incomplete RBBB and baseline and had temporary complete heart block after TAVR deployment which
subsequently resolved. no evidence of recurrence at this time
-she has been ruled out for infection and head CT negative for acute abnormalities. remains with confusion, however is pleasant - asked me 'is there shopping here?' this morning. work up per primary service.
-continue xarelto
-consider resuming po lasix 20mg daily
-appears she was not able to complete OP cardiac monitoring as ordered
-PT/OT evals. plan for SNF upon DC.
Progress Note - Compliance Program Manager
Subjective
Date of Service: May 20, 2024
no SOB, CP, palpitations
Objective
Labs:
05/20/24 05:27
05/20/24 05:27
Labs
Hgb 12.7 g/dL (12.0-16.0) 05/20/24 05:27
Hct 36.8 % (37.0-47.0) L 05/20/24 05:27
Plt Count 192 10^3/uL (130-400) 05/20/24 05:27
PT 19.2 Sec (11.4-14.6) H 05/18/24 09:02
INR 1.60 05/18/24 09:02
Sodium 143 mmol/L (135-145) 05/20/24 05:27
Potassium 4.0 mmol/L (3.5-5.1) 05/20/24 05:27
BUN 19 mg/dl (7-17) H 05/20/24 05:27
Creatinine 0.9 mg/dL (0.6-1.0) 05/20/24 05:27
Glucose 103 mg/dl (70-99) H 05/20/24 05:27
Troponins
05/18/24 05/18/24 05/18/24
09:02 17:03 22:42
Troponin I 0.050 H* 0.059 H* 0.054 H*
Vital Signs and I&O:
Vital Signs
Temp Pulse Resp BP Pulse Ox
97.8 F 108 18 146/96 98
05/20/24 07:12 05/20/24 05:22 05/20/24 07:12 05/20/24 05:22 05/20/24 07:12
Vital Signs
Temp Pulse Resp BP Pulse Ox
97.8 F 108 18 146/96 98
05/20/24 07:12 05/20/24 05:22 05/20/24 07:12 05/20/24 05:22 05/20/24 07:12
Intake & Output
05/18/24 05/19/24 05/20/24 05/21/24
07:59 07:59 07:59 07:59
Intake Total 360 / 360
Output Total 500 / 500 50 / 50
Balance -500 / -500 310 / 310
Physical Exam
Physical Exam
GEN: No distress, awake, alert, oriented to self. sitting in chair
HEENT: supple, anicteric, mmm, eomi
LUNGS: CTA B/L, no wheezes/rales
CV: Irreg, S1/S2, no murmur
ABD: soft, BS+, NT/ND
EXT: No cyanosis, clubbing, edema. missing thumb on L hand
NEURO: Gross non-focal
SKIN: Warm, pink, dry. No rash.
--- NOTE | 2024-05-20 11:50 | W.PN.HOSP.TC ---
Today's Communication/Plan
-
Monitor heart rate
Monitor for tacky bradycardia
Restart Lasix in the morning
Monitor mentation
Case management for placement
Assessment / Plan
Assessment / Plan
General: Well Developed, Well Nourished and No Apparent Distress
HEENT: NormoCephalic, Moist mucous membranes and Atraumatic
Respiratory: Clear
Cardiac: S1/S2, Irregular Rhythm ; No Murmur or Rub
Breast: Deferred by me
GI: Soft, Non Tender, Non Distended and Normal Bowel Sounds; No Organomegaly
Rectal: Deferred by Provider
Genito-urinary: Deferred by me
Musculoskeletal: No Clubbing, No Cyanosis and No Edema
Skin: No Rash
Neuro: Awake and Nonfocal/grossly intact
Psych: Calm
#Paroxysmal atrial fibrillation with rapid ventricular response
#Elevated troponin likely 2/2 non ischemic myocardial injury
Continue with Cardizem drip for now-HR improved and with plan to wean off gtt.
Monitor patient's heart rate as patient was noted to be in transient heart block post TAVR
Continue to trend for now
Continue with Xarelto
Monitor on telemetry
Started on lopressor 25mg BID
Cardiology consultation
#Lightheadedness likely secondary to dehydration
Could be also due to atrial fibrillation with rapid ventricular response
s/p IVF. Hold further IVF.
Fall precautions
Check CT head -NEGATIVE for acute pathology.
#Acute kidney injury likely secondary dehydration
Probably restart next 24 to 48 hours of 20 mg daily
Cr improved. Hold further IVF.
s/p IVF. Encourage po intake.
Trend BMP
# Toxic metabolic encephalopathy likely secondary to hospital delirium versus underlying undiagnosed cognitive disorder versus doubt infection
CT head was negative for acute stroke. Age-related volume loss was noted.
Urine was negative.
Remains afebrile
If no improvement can consider MRI of the brain.
#Hypokalemia
replete/monitor
#Severe aortic stenosis status post TAVR 05/11
#Chronic HFpEF
Probably restart next 24 to 48 hours of 20 mg daily
proBNP lower compared to past admissions
Strict I's and O's with daily weights
#Primary hypertension
Currently controlled
Severe generalized anxiety
Continue with Ativan as needed
Patient prior hospitalization reviewed and patient with multiple triggers for anxiety including constipation, pain / needles / etc.
s/p 1.5mg Ativan and 10mg IM zyprexa on admission
DVT ppx-Xarelto
Full code
Discussed with patient son over the phone in details 05/19.
PT/OT-SNF. Case management for placement.
Anticipated Discharge: > 48 hours
Subjective/Interval History
-
Date of Service: May 20, 2024
sitting in chair
remains confused
states drinks 2x weekly-not daily
Objective Data
-
Labs:
Laboratory Results
05/20/24
05:27
WBC 9.5
Hgb 12.7
Hct 36.8 L
Plt Count 192
Sodium 143
Potassium 4.0
Chloride 101
Carbon Dioxide 31 H
BUN 19 H
Creatinine 0.9
Glucose 103 H
Calcium 9.5
Vital Signs:
Vital Signs
Temp Pulse Resp BP Pulse Ox
98.4 F 110 18 133/79 99
05/20/24 10:58 05/20/24 09:00 05/20/24 10:58 05/20/24 07:10 05/20/24 10:58
I&O
05/19/24 05/20/24 05/21/24
06:59 06:59 06:59
Intake Total 360 / 360
Output Total 500 / 500 50 / 50
Balance -500 / -500 310 / 310
Data Reviewed
-
Total Time Spent with Patient (in minutes): 51
[2024-05-20] MEDS: BenGay-Like TOPICAL ×2 (14:20→18:07)
[2024-05-20] MEDS: SENOKOT-S 1 TABLET PO (16:48)
[2024-05-20] MEDS: MIRALAX 17 GRAMS PO (16:48)
[2024-05-20] MEDS: LIPITOR 20 MG PO (18:06)
[2024-05-20] MEDS: XARELTO 15 MG PO (18:06)
--- NOTE | 2024-05-20 18:10 | PTCARENOTE ---
Pt oob in chair most of the day, ambulating to and from the bathroom with RW and 1 assist.
[2024-05-20] MEDS: MELATONIN 5 MG PO (19:41)
[2024-05-20] MEDS: TYLENOL 650 MG PO (21:51)
[2024-05-20] MEDS: DESYREL 50 MG PO (22:10)
--- NOTE | 2024-05-20 22:44 | PTCARENOTE ---
Pt received start of shift, HR a-fib/flutter. Pt AAOx2-3. Pt occasionally not oriented to time or place. Medsitter observation in place. PRN pain management for R arm/wrist - see SEP. Pt using cell phone to call family. B/l groin sites FRANCK -
ecchymotic, no hematoma. Updated pt on plan of care, pt states understanding.
[2024-05-21] VITALS (10 sets, daily range): BP systolic 106–152; BP diastolic 61–137; BMI 24.3
[2024-05-21] MEDS: SYNTHROID 50 MCG PO (08:38)
[2024-05-21] MEDS: TYLENOL 650 MG PO (08:38)
[2024-05-21] MEDS: LOPRESSOR 25 MG PO ×2 (08:38→19:46)
[2024-05-21] MEDS: BenGay-Like TOPICAL ×3 (08:39→17:51)
[2024-05-21] MEDS: DETROL LA 4 MG PO (08:39)
--- NOTE | 2024-05-21 10:37 | PTCARENOTE ---
AOx2-3, confused at baseline. Assist x1 OOB with walker. AFib on tele monitor, VS monitored. Med sitter monitoring continued for safety. Bed/chair alarm on and audible. Call flores within reach.
--- NOTE | 2024-05-21 11:42 | W.PN.HOSP.TC ---
Today's Communication/Plan
-
lasix
toprol
CM for placement
Assessment / Plan
Assessment / Plan
General: Well Developed, Well Nourished and No Apparent Distress
HEENT: NormoCephalic, Moist mucous membranes and Atraumatic
Respiratory: Clear
Cardiac: S1/S2, Irregular Rhythm ; No Murmur or Rub
Breast: Deferred by me
GI: Soft, Non Tender, Non Distended and Normal Bowel Sounds; No Organomegaly
Rectal: Deferred by Provider
Genito-urinary: Deferred by me
Musculoskeletal: No Clubbing, No Cyanosis and No Edema
Skin: No Rash
Neuro: Awake and Nonfocal/grossly intact
Psych: Calm
#Paroxysmal atrial fibrillation with rapid ventricular response
#Elevated troponin likely 2/2 non ischemic myocardial injury
Continue with Cardizem drip for now-HR improved and with plan to wean off gtt.
Monitor patient's heart rate as patient was noted to be in transient heart block post TAVR
Continue to trend for now
Continue with Xarelto
Monitor on telemetry
Started on lopressor 25mg BID
Cardiology consultation
#Lightheadedness likely secondary to dehydration
Could be also due to atrial fibrillation with rapid ventricular response
s/p IVF. Hold further IVF.
Fall precautions
Check CT head -NEGATIVE for acute pathology.
#Acute kidney injury likely secondary dehydration
Probably restart next 24 to 48 hours of 20 mg daily
Cr improved. Hold further IVF.
s/p IVF. Encourage po intake.
Trend BMP
# Toxic metabolic encephalopathy likely secondary to hospital delirium versus underlying undiagnosed cognitive disorder versus doubt infection
CT head was negative for acute stroke. Age-related volume loss was noted.
Urine was negative.
Remains afebrile
If no improvement can consider MRI of the brain.
Mentation slowly improving
#Hypokalemia
replete/monitor
#Severe aortic stenosis status post TAVR 05/11
#Chronic HFpEF
Lasix restarted 20 mg daily
proBNP lower compared to past admissions
Strict I's and O's with daily weights
#Primary hypertension
Currently controlled
Severe generalized anxiety
Continue with Ativan as needed
Patient prior hospitalization reviewed and patient with multiple triggers for anxiety including constipation, pain / needles / etc.
s/p 1.5mg Ativan and 10mg IM zyprexa on admission
DVT ppx-Xarelto
Full code
PT/OT-SNF. Case management aware.
Anticipated Discharge: Within 24 hours
Subjective/Interval History
-
Date of Service: May 21, 2024
Sitting in chair comfortably
Denies chest pain, palpitation, lightheadedness or dizziness
Objective Data
-
Labs:
Laboratory Results
05/21/24
06:00
WBC Pending
Hgb Pending
Hct Pending
Plt Count Pending
Sodium Pending
Potassium Pending
Chloride Pending
Carbon Dioxide Pending
BUN Pending
Creatinine Pending
Glucose Pending
Calcium Pending
Vital Signs:
Vital Signs
Temp Pulse Resp BP Pulse Ox
98.4 F 85 20 112/61 97
05/21/24 08:18 05/21/24 08:38 05/21/24 08:18 05/21/24 08:38 05/21/24 08:18
I&O
05/20/24 05/21/24 05/22/24
06:59 06:59 06:59
Intake Total 360 / 360 240 / 240
Output Total 50 / 50
Balance 310 / 310 240 / 240
[2024-05-21] MEDS: ATIVAN 0.5 MG PO ×2 (16:04→21:29)
[2024-05-21] MEDS: LIPITOR 20 MG PO (17:50)
[2024-05-21] MEDS: XARELTO 15 MG PO (17:50)
[2024-05-21] MEDS: MELATONIN 5 MG PO (19:46)
[2024-05-21] MEDS: SENOKOT-S 1 TABLET PO (19:49)
--- NOTE | 2024-05-21 20:55 | PTCARENOTE ---
Received patient at change of shift. Patient awake, alert, and oriented in bed-- was able to answer all questions, but confused and forgetful in conversation. Pt has a medsitter and bed alarm in place. BP 124/67, 90s-100s A-fib/A-flutter with BBB,
99% on room air. Discussed with patient plan of care for the evening. Patient verbalized understanding. Call flores within reach.
[2024-05-21] MEDS: DESYREL 50 MG PO (21:29)
[2024-05-21] MEDS: BenGay-Like 1 APPLIC TOPICAL (21:29)
[2024-05-22] VITALS (10 sets, daily range): BP systolic 102–124; BP diastolic 57–75; PULSE 112; O2SAT 97; BMI 24.4
--- NOTE | 2024-05-22 04:12 | PTCARENOTE ---
Patient refused lab draws this morning. RN educated on need for draw, but patient continued to refuse stating, 'I'm just starting to heal up and am not going through that this morning.'
[2024-05-22] MEDS: SYNTHROID 50 MCG PO (06:03)
--- NOTE | 2024-05-22 08:32 | VNURNOTE ---
Chart reviewed. Patient is current with [facility] nursing, EXHIBIT PREPARATOR. Will continue to follow hospital course and DC plans. Previous notes indicated SNF v. VN.
[2024-05-22] MEDS: LASIX 20 MG PO (08:41)
[2024-05-22] MEDS: LOPRESSOR 25 MG PO ×2 (08:41→20:47)
[2024-05-22] MEDS: DETROL LA 4 MG PO (08:41)
[2024-05-22] MEDS: BenGay-Like 1 APPLIC TOPICAL ×2 (08:41→20:48)
--- NOTE | 2024-05-22 08:52 | W.PN.HOSP.TC ---
Today's Communication/Plan
-
see A/P
Assessment / Plan
Assessment / Plan
A/P:
# Paroxysmal atrial fibrillation with rapid ventricular response
# Elevated troponin likely 2/2 non ischemic myocardial injury
s/p Cardizem drip
resumed PAD EXTRACTION TENDER Lopressor 25 mg BID
Continue with Xarelto
Monitor on telemetry
Cardiology on board , signed off
# Lightheadedness likely secondary to dehydration vs atrial fibrillation with rapid ventricular response
s/p IVF. Hold further IVF.
Fall precautions
CT head: NEGATIVE for acute pathology.
# Acute kidney injury likely secondary dehydration
Hold further IVF.
SCr improved from 1.1 to 0.9
Trend BMP
# Toxic metabolic encephalopathy likely secondary to hospital delirium versus underlying undiagnosed cognitive disorder
CT head was negative for acute stroke. Age-related volume loss was noted.
UA clean
Afebrile
Mentation slowly improving
# Hypokalemia
replete/monitor
# Severe aortic stenosis status post TAVR 05/11
# Chronic HFpEF
Lasix restarted 20 mg daily
proBNP lower compared to past admissions
Strict I's and O's with daily weights
# Primary hypertension
Currently controlled
# Severe generalized anxiety
s/p 1.5mg Ativan and 10mg IM Zyprexa on admission
Patient prior hospitalization reviewed and patient with multiple triggers for anxiety including constipation, pain / needles / etc.
Continue with Ativan as needed
DVT ppx-Xarelto
Full code
Dispo: PT/OT recc SNF. Case management aware.
DW RN
Anticipated Discharge: Within 24 hours
Subjective/Interval History
-
Date of Service: May 22, 2024
Objective Data
-
Labs:
Laboratory Results
05/22/24
06:00
Sodium Pending
Potassium Pending
Chloride Pending
Carbon Dioxide Pending
BUN Pending
Creatinine Pending
Glucose Pending
Calcium Pending
Vital Signs:
Vital Signs
Temp Pulse Resp BP Pulse Ox
36.8 C 114 16 124/71 97
05/22/24 07:16 05/22/24 07:14 05/22/24 07:16 05/22/24 07:14 05/22/24 07:16
I&O
05/21/24 05/22/24 05/23/24
06:59 06:59 06:59
Intake Total 240 / 240
Balance 240 / 240
Review of Systems
-
All other systems: Reviewed and negative
Physical Exam
-
General: Well Developed, Well Nourished, No Apparent Distress, Comfortable and Conversant
HEENT: Normocephalic and Atraumatic
Respiratory: Clear to Auscultation and Non Labored Respirations; Negative Accessory Resp Muscle Use
Cardiac: Regular Rhythm, S1/S2 and Murmur; Negative Rub or Gallop
GI: Soft, Nontender, Nondistended and Normal Bowel Sounds
Musculoskeletal: No Clubbing, No Cyanosis and No Edema
Neuro: Awake and Alert
Psych: Calm and Intact Judgement/Insight
Data Reviewed
-
Labs: Labs Reviewed by me
--- NOTE | 2024-05-22 10:24 | PTCARENOTE ---
Pt received start of shift, HR a-fib/flutter. Pt AAOx2-3. Pt occasionally not oriented to time or place. Med sitter observation in place and bed/chair alarm activated. Currently OOB in chair; call sandra w/in reach.
--- NOTE | 2024-05-22 10:33 | CM ---
Addendum entered by Lori Barriga 05/22/24 16:39:
Sent clinical information to [facility] to start the pre-cert process.
Addendum entered by Lori Barriga 05/22/24 12:45:
[facility] states they will not have a bed available. [facility] Ad[facility] can offer a bed. Met with Mrs. Dowell who requested referral to be sent to [facility]. Telephone call to [facility] SNF Liaison to make
referral. Sent the referral. Telephone call to son, to update him. Left message.
Addendum entered by Lori Barriga 05/22/24 10:54:
Met with son and Mrs. Dowell to review discharge plans. There first choice would be [facility] if bed available.
Original Note:
Reviewed chart. Met with Mrs Dowell to review discharge plans. We reviewed SNF/Rehab. and the role insurance plays in the process. We reviewed in-network providers with [employer]. She is agreeable o having referral sent to [facility] and [facility]. Telephone call to [facility] Admissions and [facility] Admissions to make the referral. Sent the referral. Will start pre-cert once bed is confirmed. Medical work-up in progress. The
discharge plan is to go to SNF/Rehab. if bed available and approved by insurance when medically stable.
[2024-05-22] MEDS: BenGay-Like TOPICAL ×2 (12:24→17:14)
[2024-05-22] MEDS: LIPITOR 20 MG PO (16:56)
[2024-05-22] MEDS: XARELTO 15 MG PO (16:56)
[2024-05-22] MEDS: ATIVAN 0.5 MG PO (16:58)
[2024-05-22] MEDS: MELATONIN 5 MG PO (20:48)
[2024-05-22] MEDS: DESYREL 50 MG PO (20:49)
--- NOTE | 2024-05-22 23:00 | PTCARENOTE ---
Pt received at change of shift. Pt awake and able to answer all orientation questions however forgetful and impulsive. Bed alarm activated and medsitter in place for pt safety. Afib on tele with HR ranging from 70s-90s at rest and low 100s with
ambulation. Ambulating with x1 assist and rolling walker to bathroom. Call flores within reach.
[2024-05-23 03:50] VITALS: BMI 24.3
[2024-05-23 03:51] VITALS: BP 146/114
--- NOTE | 2024-05-23 04:03 | PTCARENOTE ---
Pt refusing AM labs to be drawn. Education provided on reason for lab work and pt continues to refuse stating 'she is just starting to heal and is not going through that.'
[2024-05-23] MEDS: SYNTHROID 50 MCG PO (05:07)
[2024-05-23 06:51] VITALS: BP 118/78
--- NOTE | 2024-05-23 07:43 | PTCARENOTE ---
While receiving report on the patient she pressed call flores for assistance to go to the bathroom. Patient used rolling walker with supervision, resting back in bed now with alarm in place and med sitter in use.
--- NOTE | 2024-05-23 08:26 | W.PN.HOSP.TC ---
Addendum entered and electronically signed by Mary Beth Adames MD 05/23/24 13:33:
total DC time 36 min
Original Note:
Today's Communication/Plan
-
dispo planning
Assessment / Plan
Assessment / Plan
A/P:
# Paroxysmal atrial fibrillation with rapid ventricular response
# Elevated troponin likely 2/2 non ischemic myocardial injury
s/p Cardizem drip
resumed QUALITY ASSURANCE MONITOR FINAL Lopressor 25 mg BID
Continue with Xarelto
Monitor on telemetry
Cardiology on board , signed off
# Lightheadedness likely secondary to dehydration vs atrial fibrillation with rapid ventricular response
s/p IVF. Hold further IVF.
Fall precautions
CT head: NEGATIVE for acute pathology.
# Acute kidney injury likely secondary dehydration
Hold further IVF.
SCr improved from 1.1 to 0.9
Trend BMP
# Toxic metabolic encephalopathy likely secondary to hospital delirium versus underlying undiagnosed cognitive disorder
CT head was negative for acute stroke. Age-related volume loss was noted.
UA clean
Afebrile
Mentation slowly improving
# Hypokalemia
replete/monitor
# Severe aortic stenosis status post TAVR 05/11
# Chronic HFpEF
Lasix restarted 20 mg daily
proBNP lower compared to past admissions
Strict I's and O's with daily weights
# Primary hypertension
Currently controlled
# Severe generalized anxiety
s/p 1.5mg Ativan and 10mg IM Zyprexa on admission
Patient prior hospitalization reviewed and patient with multiple triggers for anxiety including constipation, pain / needles / etc.
Continue with Ativan as needed
DVT ppx-Xarelto
Full code
Dispo: PT/OT recc SNF. Case management aware.
Anticipated Discharge: 24 - 48 hours
Subjective/Interval History
-
Date of Service: May 23, 2024
Objective Data
-
Labs:
Laboratory Results
05/22/24 05/23/24
06:00 06:00
Sodium Cancelled Pending
Potassium Cancelled Pending
Chloride Cancelled Pending
Carbon Dioxide Cancelled Pending
BUN Cancelled Pending
Creatinine Cancelled Pending
Glucose Cancelled Pending
Calcium Cancelled Pending
Vital Signs:
Vital Signs
Temp Pulse Resp BP Pulse Ox
36.3 C 116 16 118/78 95
05/23/24 06:49 05/23/24 07:00 05/23/24 06:49 05/23/24 06:51 05/23/24 06:49
I&O
05/22/24 05/23/24 05/24/24
06:59 06:59 06:59
Intake Total 200 / 200
Balance 200 / 200
Review of Systems
-
All other systems: Reviewed and negative
Physical Exam
-
General: Well Developed, Well Nourished, No Apparent Distress, Comfortable and Conversant
HEENT: Normocephalic and Atraumatic
Respiratory: Clear to Auscultation and Non Labored Respirations; Negative Accessory Resp Muscle Use
Cardiac: Regular Rhythm, S1/S2 and Murmur; Negative Rub or Gallop
GI: Soft, Nontender, Nondistended and Normal Bowel Sounds
Musculoskeletal: No Clubbing, No Cyanosis and No Edema
Neuro: Awake and Alert
Psych: Calm and Intact Judgement/Insight
Data Reviewed
-
Labs: Labs Reviewed by me
[2024-05-23] MEDS: DETROL LA 4 MG PO (09:18)
[2024-05-23] MEDS: LASIX 20 MG PO (09:18)
[2024-05-23] MEDS: BenGay-Like 1 APPLIC TOPICAL (09:19)
[2024-05-23] MEDS: SENOKOT-S 1 TABLET PO (09:19)
[2024-05-23] MEDS: LOPRESSOR 25 MG PO (09:19)
[2024-05-23] MEDS: MIRALAX 17 GRAMS PO (09:19)
[2024-05-23] MEDS: FLUSH (NSS) 1 FLUSH IV (09:20)
--- NOTE | 2024-05-23 09:21 | CM ---
Addendum entered by Lori Barriga 05/23/24 14:00:
Met with Mrs. Dowell to review transportation to [facility]. She states her firend will give her a ride at 3:30 p.m. today. Updated [facility] Liaison. and her nurse. Medical work-up in progress. The discharge plan is to go to [facility]
SNF when medically stable.
Original Note:
Reviewed chart. [facility]. Approved for SNF/Rehab. at [facility] from 1029 to 05/25/24 with NRD 05/25/24. Next review to be sent to Vicki Song, fax number [phone]. Updated [facility] Liaison with
auth. number. She can go today if medically stable. Updated attending physician. The report number is ([phone]), and fax number is ([phone]). Medical work-up in progress. The discharge plan is to go to [facility] when medically
stable.
--- NOTE | 2024-05-23 10:47 | PTCARENOTE ---
Patient is anxious with many questions about discharge planning. Seems agreeable to go for a short stay at [facility].
[2024-05-23] MEDS: ATIVAN 0.5 MG PO (11:07)
[2024-05-23 11:09] VITALS: BP 117/83
--- NOTE | 2024-05-23 13:20 | W.DCSUMMARY ---
Discharge Summary
Discharge Data
Date of Admission: 05/18/24
Date of Discharge: 05/23/24
-
Pending Results: No
Hospital Course
Principal Diagnosis:
Lightheadedness due to paroxysmal atrial fibrillation with rapid ventricular response
Acute kidney injury (HASEEB) likely secondary dehydration. HASEEB resolved.
Acute metabolic encephalopathy likely secondary to hospital delirium versus underlying undiagnosed cognitive disorder
Chronic Diagnoses:�
Severe aortic stenosis status post TAVR 05/11
Chronic Heart failure with preserved ejection fraction
Primary hypertension
Generalized anxiety
Consultations:�
Cardiology
Procedures:�
None
Clinical course:�
This is a 89-year-old female, with past medical history as stated above, who presented with palpitation and lightheadedness.
Problem 1:
Paroxysmal atrial fibrillation with intermittent rapid ventricular response.
The patient was briefly treated with Cardizem drip.
Her prior to admission Lopressor 25 mg twice daily was resumed which she can continue going forward.
She can also continue with her prior to Xarelto.
There was no additional change per cardiology.
Problem 2:
Acute kidney injury likely secondary dehydration.
She received IV fluid and her serum creatinine improved from 1.1 to 0.9.
As for the rest of her medical problems, they were stable during her hospital stay.
Discharge Plan
-
Patient Disposition: Retirement/SNF
Discharge Diagnosis/Procedures: Paroxysmal atrial fibrillation with intermittent rapid ventricular response without symptoms
Condition: Fair
Diet: As tolerated, Low Fat, Low Cholesterol and Low Sodium
Activity: As tolerated
Driving Restrictions: As prior to admission
Referrals:
Harshil Chung MD [Family Provider] - in less than 1 week
Lesly Pineda PA-C [Specified Professional Personl] - 06/01/24 12:40 pm (You have a cardiology follow up appointment at the [place] office with Dr. Guerrero's physician instructional assistant, Lesly. Please call with questions. )
Prescriptions:
New
furosemide 20 mg Tablet
20 mg PO DAILY Qty: 30 0RF
Continued
levothyroxine 50 MCG tablet
50 mcg PO DAILY
acetaminophen [Tylenol] 325 mg Tablet
650 mg PO Q4HPRN PRN (Reason: mild pain)
solifenacin [Vesicare] 10 mg Tablet
10 mg PO DAILY
eszopiclone 1 mg Tablet
3 mg PO HS
Salonpas (capsaicin-menthol) 0.025-1.25 % Adhesive Patch,Medicated
2 patch TOPICAL DAILYPRN PRN (Reason: right arm)
trazodone 50 mg tablet
50 mg PO HS
Xarelto 15 mg Tablet
15 mg PO QPM Qty: 30 11RF
atorvastatin 20 mg tablet
20 mg PO QPM Qty: 30 1RF
metoprolol tartrate 25 mg Tablet
25 mg PO BID
melatonin 5 mg tablet
5 mg PO DAILY@1999
lorazepam 0.5 mg Tablet
0.5 mg PO BIDPRN PRN (Reason: anxiety) Qty: 3 0RF
Discontinued
furosemide [Lasix] 40 mg tablet
PO DAILY
Patient Comments:
05/18/24-patient ecw has 40mg daily but pharamcy has 10mg keke, no family that helps patient and patient under panic attack and repeatting same thing without anwer questions
amlodipine 5 mg tablet
5 mg PO DAILY
Discharge Orders:
Discharge Patient (As Directed); Ordered 05/23/24
Ordered By: Mary Beth Adames
Care Plan Goals
Care Plan Goals:
Problem: Readiness for enhanced knowledge related to diagnosis and treatment plan
Goal: Understand your diagnosis and treatment plan needs, including medications if applicable.
Instructions: Know your diagnosis, underlying causes and treatment plan options, including medications if applicable. Consult with your health care team to learn about your diagnosis and treatment plan, including medications if applicable.
Discharge Date and Time
Print Language: EMIRATI
[2024-05-23] MEDS: BenGay-Like TOPICAL (14:23)
--- NOTE | 2024-05-23 15:03 | PTCARENOTE ---
Report called earlier to Laly at [facility]. Patient's friend Melanie driving her to facility, patient given envelope to give to nurse at Rehab. Patient discharged to SNF with her friend providing transport.
== END 2024-05-23 14:56 | DRG 308 ==
LOC: IVU 13:52
PROVIDERS: ADMITTING PHYSICIAN Hospitalist; ATTENDING PHYSICIAN Internal Medicine; CONSULT PHYSICIAN Internal Medicine Cardiovascular Disease; EMERGENCY PHYSICIAN Emergency Medicine; FAMILY PHYSICIAN Specialist
DX: I48.0 Paroxysmal atrial fibrillation (principal); G93.41 Metabolic encephalopathy; I50.32 Chronic diastolic (congestive) heart failure; F05 Delirium due to known physiological condition; N17.9 Acute kidney failure, unspecified; I5A Non-ischemic myocardial injury (non-traumatic); I11.0 Hypertensive heart disease with heart failure; Z95.2 Presence of prosthetic heart valve; D64.9 Anemia, unspecified; E03.9 Hypothyroidism, unspecified; E04.2 Nontoxic multinodular goiter; F32.A Depression, unspecified; I35.0 Nonrheumatic aortic (valve) stenosis; I73.9 Peripheral vascular disease, unspecified; K76.9 Liver disease, unspecified; I45.2 Bifascicular block; E55.9 Vitamin D deficiency, unspecified; E78.00 Pure hypercholesterolemia, unspecified; E86.0 Dehydration; E87.6 Hypokalemia; F41.1 Generalized anxiety disorder; I25.10 Atherosclerotic heart disease of native coronary artery without angina pectoris; M85.80 Other specified disorders of bone density and structure, unspecified site; K59.00 Constipation, unspecified; W01.0XXA Fall on same level from slipping, tripping and stumbling without subsequent striking against object, initial encounter; Z79.01 Long term (current) use of anticoagulants; Z79.890 Hormone replacement therapy; Z79.899 Other long term (current) drug therapy; Z85.038 Personal history of other malignant neoplasm of large intestine; Z90.49 Acquired absence of other specified parts of digestive tract; Z86.711 Personal history of pulmonary embolism; Z87.891 Personal history of nicotine dependence; Z85.72 Personal history of non-Hodgkin lymphomas; Z92.21 Personal history of antineoplastic chemotherapy; Z87.09 Personal history of other diseases of the respiratory system
CPT/HCPCS: 70450; 71046; 80048; 80053; 81003; 82570; 83735; 83880; 84300; 84484; 85025; 85610; 93005; 96372; 96374; 96375; 97116; 97163; 97167; 97535; 99285; J2358